=== PATIENT | male | born 1945 | race Caucasian/White ===

== ENCOUNTER 2020-07-07 13:08 | Inpatient (IN) | payer MEDICARE, SELFPAY ==
--- NOTE | ~2020-07-07 | XR_ITS ---
EXAMINATION: XR CHEST CLINICAL INFORMATION: Altered mental status. Question psych. COMPARISON: None TECHNIQUE: Frontal view of the chest was obtained. FINDINGS: No significant abnormality is noted involving the heart, lungs, mediastinum, bony thorax or soft tissues. XR/XR chest 1V IMPRESSION: Unremarkable chest examination.
--- NOTE | ~2020-07-07 | CT_ITS ---
EXAMINATION: CT HEAD WITHOUT CONTRAST CLINICAL INFORMATION: Failure to thrive. COMPARISON: Previous head CT scans most recent January 2019 TECHNIQUE: Contiguous axial imaging was performed from the skull base to vertex without intravenous administration of contrast. This CT examination was performed using dose optimization techniques as appropriate, variously including the following: *Automated exposure control *Adjustment of mA and/or kV according to patient size (this includes techniques or standardized protocols for targeted exams where dose is matched to indication/reason for exam; i.e. extremities or head) *Use of iterative reconstruction technique DLP: 836 mGy-cm FINDINGS: There is no evidence of acute intracranial hemorrhage or territorial infarction. No abnormal mass effect or midline shift is seen. Bush to white matter differentiation is well preserved. No extra-axial fluid collections are identified. The ventricles are normal in size. There is no abnormal attenuation within the brain parenchyma. The osseous structures and soft tissues are normal. The mastoid air cells and visualized portions of the paranasal sinuses are well aerated. CT/CT head/brain wo con IMPRESSION: Unremarkable exam.
--- NOTE | ~2020-07-07 | US_ITS ---
EXAMINATION: US RETROPERITONEAL COMPLETE (RENAL) CLINICAL INFORMATION: Urinary retention. COMPARISON: None TECHNIQUE: Real-time imaging of the kidneys and bladder. FINDINGS: RIGHT KIDNEY: 10.2 x 6.3 x 5.8 cm (SAG x AP x TRV). The kidney is normal in size, contour, and echogenicity. Renal cortical thickness is normal. No renal calculi or focal parenchymal lesions. Moderate hydronephrosis. Trace perinephric free fluid. LEFT KIDNEY: 11.4 x 6.1 x 5.9 cm (SAG x AP x TRV). The kidney is normal in size, contour, and echogenicity. Renal cortical thickness is normal. No renal calculi or focal parenchymal lesions. Moderate left hydronephrosis. BLADDER: The bladder wall demonstrates hypertrabeculation with multiple diverticula, which limits assessment for any subtle bladder wall abnormalities. Right ureteral jet is demonstrated; left is not. Prevoid bladder volume is 482 mL. The patient was unable to void for postvoid images. US/US retroperitoneal comp IMPRESSION: 1. Urinary retention. The prevoid bladder volume was 482 and the patient was unable to void for postvoid residuals. 2. The bladder wall is markedly trabeculated with scattered diverticula. 3. Moderate hydronephrosis bilaterally. Trace right perinephric free fluid.
[2020-07-07 13:28] VITALS: BP 138/72; BP 140/76; PULSE 66; PULSE 67; RESP 17; TEMP 36.7; O2SAT 95; O2SAT 96; BMI 29.6
--- NOTE | 2020-07-07 14:00 | ED.GENADULT ---
HPI - General Adult General Chief complaint: General Medical Stated complaint: CRISIS,SECT 12 Time Seen by Provider: 07/07/20 13:36 Source: patient and EMS Mode of arrival: EMS History of Present Illness HPI narrative: 75-year-old male with a past medical history of schizophrenia BIBA Section 12 by [facility], patient stating he is going to hell, reports visual and auditory hallucinations, SI and HI. Reported medication noncompliance, and failure to thrive. Per EMS house disheveled, patient unsteady on feet, decreased p.o. intake. Patient reports he is injuring himself, but then will not elaborate. History limited due to patient intermittently answering questions Related Data Allergies Allergy/AdvReac Type Severity Reaction Status Date / Time aspirin [Aspirin] Allergy Severe SWELLING Unverified 02/14/20 16:49 Review of Systems Review of Systems: Constitutional: No Fever, No Chills Gastrointestinal: + Nausea, + Vomiting, No Abdominal pain Musculoskeletal: No joint pain Skin: No Skin Lesions, No rash Psych: + SI/HI/AH/VH, + Social Issues History limited due to patient's acute illness Yes all other systems are reviewed and are negative [facility] Past Medical History Attestation statement: The following information was validated with the patient. Medical History (Updated 07/07/20 @ 17:07 by JENNI Vidal) Schizophrenia Social History Social History Alcohol intake: never Smoking Status: Never smoker Use of substances other than those prescribed or required for medical reasons: No Advance Directives: No Advance Directives Information Provided: No Physical Exam Vital Signs: Vital Signs: Last Vital Signs Temp 98.3 F 07/07/20 16:11 Pulse 67 07/07/20 16:11 Resp 13 07/07/20 16:11 BP 144/70 H 07/07/20 16:11 Pulse Ox 97 07/07/20 16:11 Body Mass Index 29.6 Const: Other: Disheveled Orientation/consciousness: oriented to person and oriented to place HENMT: Head: Yes normal to inspection Ears: hearing grossly normal bilaterally General nose exam: Normal external nose present Face and sinus: Yes normal facial exam Mouth: Normal oral and palatal mucosa present Eyes: General: appearance normal, both eyes and all related structures Pupils: Equal, round and reactive pupils present EOM: EOMs intact bilaterally Neck: Neck: Yes normal visual inspection and Yes no meningeal signs Resp: Effort & Inspection: normal respiratory effort Auscultation: clear to auscultation bilaterally, no rales, no rhonchi and no wheezes Cardio: Rate: regular rate Heart sounds: S1 normal heart sound present and S2 normal heart sound present GI: Inspection: Yes normal to inspection Palpation (GI): Soft to palpation, nontender, no guarding and not rigid Neuro: Other: Unsteady on feet. Intermittently following commands. A&O x2 General: oriented to person, oriented to place, tone normal, moves all extremities, no meningeal signs and CN's II-XI intact bilaterally Cranial nerves: Yes Equal, round and reactive pupils present Extrem: General: Yes normal to inspection Psych: Appearance: disheveled Speech and movement: Slowed speech present (Psych) and Slowed movement present (Neuro) Affect: Labile affect present and Blunted affect present Attitude: Guarded attititude/behavior present Thought content: Suicidality present and Homicidality present Course Course Course Narrative: -leukocytosis of 13.2, H&H stable, sodium 132, BUN 29 likely from dehydration > will give L IVF. Bilirubins mildly elevated. AST elevated, no priors to compare. Troponin negative -CXR unremarkable -1659-- UA infected will give dose of IV ceftriaxone > p.o. Ceftin ordered to initiate tomorrow -head CT unremarkable -copy of patient's Claudio order in chart for clozapine, risperidone, and olanzapine -1800-- ED care transferred to SMO[facility] INSPECTOR Lavinia pending N eval Medical Decision Making [facility] Narrative Medical decision making narrative: 75-year-old male with a past medical history of schizophrenia BIBA Section 12 by [facility], patient stating he is going to hell, reports visual and auditory hallucinations, SI and HI. Reported medication noncompliance, and failure to thrive. On exam VSS, disheveled, A&O x2, unsteady on feet, reports auditory/visual hallucinations, suicidality and homicidality. Concern for ICH vs metabolic/infectious etiology causing AMS vs schizophrenia/psychiatric issue vs substance abuse Plan: EKG, labs, UA, head CT, CXR, BHN, re-evaluate Lab Data Result diagrams: 07/07/20 14:49 07/07/20 14:49 Labs: Lab Results 07/07/20 07/07/20 07/07/20 Range/Units 14:49 14:49 14:49 WBC 13.2 H (4.8-10.8) X10*3/uL RBC 4.19 L (4.60-5.80) X10*6/uL Hgb 13.6 L (14.0-18.0) g/dl Hct 37.2 L (42-52) % MCV 88.8 (80-98) fL MCH 32.5 (27.0-33.0) pg MCHC 36.6 H (31.0-36.0) g/dl RDW 13.7 (11.0-16.0) % Plt Count 163 (160-400) X10*3/uL MPV 8.5 L (9.4-12.4) fL Immature Gran % (Auto) 0.5 H (0.0-0.4) % Neut % (Auto) 88.1 H (45-73) % Lymph % (Auto) 4.5 L (20-40) % [place] % (Auto) 6.7 (2-11) % Eos % (Auto) 0.0 (0-4) % Baso % (Auto) 0.2 (0-2) % Lymph # (Auto) 0.6 L (1.2-4.9) X10*3/uL [place] # (Auto) 0.9 (0.1-1.2) X10*3/uL Eos # (Auto) 0.0 (0.0-0.4) X10*3/uL Baso # (Auto) 0.0 (0.0-0.2) X10*3/uL Abs Immat Gran (auto) 0.07 H (0.00-0.03) X10*3/uL Absolute Neuts (auto) 11.6 H (2.0-8.3) X10*3/uL Absolute Nucleated RBC 0.000 (0.0-0.012) X10*3/uL Nucleated RBC % (auto) 0.0 (0.0-0.2) /100WBC Smear Tech's Comments VERIFIED Hold Blue Top Sodium 132 L (135-145) mmol/L Potassium 4.0 (3.3-5.1) mmol/L Chloride 97 (96-108) mmol/L Carbon Dioxide 26 (22-29) mmol/L Anion Gap 13 (12-20) BUN 29 H (9-16) mg/dL Creatinine 1.26 (0.5-1.4) mg/dL Estim Creat Clear Calc 53.0 Estimated GFR 55 Random Glucose 103 (60-115) mg/dL Calcium 8.5 (8.4-10.2) mg/dL Magnesium 2.7 H (1.6-2.6) mg/dL Total Bilirubin 1.1 H (0.0-1.0) mg/dL Direct Bilirubin 0.6 H (0.0-0.5) mg/dL AST 90 H (5-37) U/L ALT 39 (0-40) U/L Alkaline Phosphatase 85 (39-117) U/L Troponin I High Sens (<3.5-35.0) ng/L Total Protein 5.8 L (6.5-8.0) g/dL Albumin 4.1 (3.5-5.0) g/dL Lipase 39 (8-78) U/L Urine Color Urine Appearance Urine pH (5.0-8.0) Ur Specific [place] (1.005-1.025) Urine Protein (NEG-TRACE) MG/DL Urine Glucose (UA) (NEG) MG/DL Urine Ketones (NEG) MG/DL Urine Blood (NEG) Urine Nitrite (NEG) Ur Leukocyte Esterase (NEG) Urine RBC (0) /HPF Urine WBC (0-4) /HPF Ur Squamous Epith Cells /LPF Urine Bacteria /LPF Salicylates < 5.0 L (15-30) mg/dL Urine Opiates Screen (Not Detect) Acetaminophen < 1 (<30) mcg/mL Ur Barbiturates Screen (Not Detect) Ur Phencyclidine Scrn (Not Detect) Ur Amphetamines Screen (Not Detect) U Benzodiazepines Scrn (Not Detect) Urine Cocaine Screen (Not Detect) U Marijuana (THC) Screen (Not Detect) COVID-19 (SEAN) Negative (Negative) COVID-19 Clin Com See Note 07/07/20 07/07/20 07/07/20 Range/Units 14:49 14:49 15:38 WBC (4.8-10.8) X10*3/uL RBC (4.60-5.80) X10*6/uL Hgb (14.0-18.0) g/dl Hct (42-52) % MCV (80-98) fL MCH (27.0-33.0) pg MCHC (31.0-36.0) g/dl RDW (11.0-16.0) % Plt Count (160-400) X10*3/uL MPV (9.4-12.4) fL Immature Gran % (Auto) (0.0-0.4) % Neut % (Auto) (45-73) % Lymph % (Auto) (20-40) % [place] % (Auto) (2-11) % Eos % (Auto) (0-4) % Baso % (Auto) (0-2) % Lymph # (Auto) (1.2-4.9) X10*3/uL [place] # (Auto) (0.1-1.2) X10*3/uL Eos # (Auto) (0.0-0.4) X10*3/uL Baso # (Auto) (0.0-0.2) X10*3/uL Abs Immat Gran (auto) (0.00-0.03) X10*3/uL Absolute Neuts (auto) (2.0-8.3) X10*3/uL Absolute Nucleated RBC (0.0-0.012) X10*3/uL Nucleated RBC % (auto) (0.0-0.2) /100WBC Smear Tech's Comments Hold Blue Top SEE NOTE Sodium (135-145) mmol/L Potassium (3.3-5.1) mmol/L Chloride (96-108) mmol/L Carbon Dioxide (22-29) mmol/L Anion Gap (12-20) BUN (9-16) mg/dL Creatinine (0.5-1.4) mg/dL Estim Creat Clear Calc Estimated GFR Random Glucose (60-115) mg/dL Calcium (8.4-10.2) mg/dL Magnesium (1.6-2.6) mg/dL Total Bilirubin (0.0-1.0) mg/dL Direct Bilirubin (0.0-0.5) mg/dL AST (5-37) U/L ALT (0-40) U/L Alkaline Phosphatase (39-117) U/L Troponin I High Sens 4.3 (<3.5-35.0) ng/L Total Protein (6.5-8.0) g/dL Albumin (3.5-5.0) g/dL Lipase (8-78) U/L Urine Color YELLOW Urine Appearance HAZY Urine pH 6.5 (5.0-8.0) Ur Specific [place] 1.010 (1.005-1.025) Urine Protein NEG (NEG-TRACE) MG/DL Urine Glucose (UA) NEG (NEG) MG/DL Urine Ketones 15 (NEG) MG/DL Urine Blood 1+ H (NEG) Urine Nitrite NEG (NEG) Ur Leukocyte Esterase 2+ H (NEG) Urine RBC 1-4 (0) /HPF Urine WBC 50-75 H (0-4) /HPF Ur Squamous Epith Cells NONE /LPF Urine Bacteria TRACE /LPF Salicylates (15-30) mg/dL Urine Opiates Screen (Not Detect) Acetaminophen (<30) mcg/mL Ur Barbiturates Screen (Not Detect) Ur Phencyclidine Scrn (Not Detect) Ur Amphetamines Screen (Not Detect) U Benzodiazepines Scrn (Not Detect) Urine Cocaine Screen (Not Detect) U Marijuana (THC) Screen (Not Detect) COVID-19 (SEAN) (Negative) COVID-19 Clin Com 07/07/20 Range/Units 15:38 WBC (4.8-10.8) X10*3/uL RBC (4.60-5.80) X10*6/uL Hgb (14.0-18.0) g/dl Hct (42-52) % MCV (80-98) fL MCH (27.0-33.0) pg MCHC (31.0-36.0) g/dl RDW (11.0-16.0) % Plt Count (160-400) X10*3/uL MPV (9.4-12.4) fL Immature Gran % (Auto) (0.0-0.4) % Neut % (Auto) (45-73) % Lymph % (Auto) (20-40) % [place] % (Auto) (2-11) % Eos % (Auto) (0-4) % Baso % (Auto) (0-2) % Lymph # (Auto) (1.2-4.9) X10*3/uL [place] # (Auto) (0.1-1.2) X10*3/uL Eos # (Auto) (0.0-0.4) X10*3/uL Baso # (Auto) (0.0-0.2) X10*3/uL Abs Immat Gran (auto) (0.00-0.03) X10*3/uL Absolute Neuts (auto) (2.0-8.3) X10*3/uL Absolute Nucleated RBC (0.0-0.012) X10*3/uL Nucleated RBC % (auto) (0.0-0.2) /100WBC Smear Tech's Comments Hold Blue Top Sodium (135-145) mmol/L Potassium (3.3-5.1) mmol/L Chloride (96-108) mmol/L Carbon Dioxide (22-29) mmol/L Anion Gap (12-20) BUN (9-16) mg/dL Creatinine (0.5-1.4) mg/dL Estim Creat Clear Calc Estimated GFR Random Glucose (60-115) mg/dL Calcium (8.4-10.2) mg/dL Magnesium (1.6-2.6) mg/dL Total Bilirubin (0.0-1.0) mg/dL Direct Bilirubin (0.0-0.5) mg/dL AST (5-37) U/L ALT (0-40) U/L Alkaline Phosphatase (39-117) U/L Troponin I High Sens (<3.5-35.0) ng/L Total Protein (6.5-8.0) g/dL Albumin (3.5-5.0) g/dL Lipase (8-78) U/L Urine Color Urine Appearance Urine pH (5.0-8.0) Ur Specific [place] (1.005-1.025) Urine Protein (NEG-TRACE) MG/DL Urine Glucose (UA) (NEG) MG/DL Urine Ketones (NEG) MG/DL Urine Blood (NEG) Urine Nitrite (NEG) Ur Leukocyte Esterase (NEG) Urine RBC (0) /HPF Urine WBC (0-4) /HPF Ur Squamous Epith Cells /LPF Urine Bacteria /LPF Salicylates (15-30) mg/dL Urine Opiates Screen Not Detected (Not Detect) Acetaminophen (<30) mcg/mL Ur Barbiturates Screen Not Detected (Not Detect) Ur Phencyclidine Scrn Not Detected (Not Detect) Ur Amphetamines Screen Not Detected (Not Detect) U Benzodiazepines Scrn Not Detected (Not Detect) Urine Cocaine Screen Not Detected (Not Detect) U Marijuana (THC) Screen Not Detected (Not Detect) COVID-19 (SEAN) (Negative) COVID-19 Clin Com ECG Data Attestation: I personally reviewed and interpreted this ECG as follows: Prior ECG tracings: available for review Interpretation: EKG NSR rate of 68. Incomplete right bundle-branch block. Discharge Plan Discharge Clinical Impression: Acute UTI, Paranoid schizophrenia
--- NOTE | 2020-07-07 14:23 | ECG_ITS ---
Test Reason : SEIZURE Blood Pressure : / mmHG Vent. Rate : 068 BPM Atrial Rate : 068 BPM P-R Int : 170 ms QRS Dur : 096 ms QT Int : 416 ms P-R-T Axes : 059 -11 061 degrees QTc Int : 442 ms Normal sinus rhythm Incomplete right bundle branch block Abnormal ECG When compared with ECG of 05-FEB-2019 16:01, Vent. rate has decreased BY 34 BPM Questionable change in QRS axis Referred By: Nneka Galvan Electronically Signed By:ORLANDO XIE
[2020-07-07 15:00] LABS: Basophils Percent Auto 0.2 % (0-2); Hematocrit 37.2 % (42-52); Hemoglobin 13.6 g/dl (14.0-18.0); Imm Gran Abs Auto 0.07 X10*3/uL (0.00-0.03); Imm Gran Pct Auto 0.5 % (0.0-0.4); Lymphocytes Absolute Auto 0.6 X10*3/uL (1.2-4.9); Lymphocytes Percent Auto 4.5 % (20-40); MANUAL DIFF FLAG SCAN; Mean Corpuscular HGB Conc 36.6 g/dl (31.0-36.0); Mean Corpuscular Hemoglobin 32.5 pg (27.0-33.0); Mean Corpuscular Volume 88.8 fL (80-98); Mean Platelet Volume 8.5 fL (9.4-12.4); Monocytes Absolute Auto 0.9 X10*3/uL (0.1-1.2); Monocytes Percent Auto 6.7 % (2-11); Neutrophils Absolute Auto 11.6 X10*3/uL (2.0-8.3); Neutrophils Percent Auto 88.1 % (45-73); Platelet Count 163 X10*3/uL (160-400); Red Blood Count 4.19 X10*6/uL (4.60-5.80); Red Cell Distribution Width 13.7 % (11.0-16.0); SCAN SMEAR FLAG 1; White Blood Count 13.2 X10*3/uL (4.8-10.8)
[2020-07-07 15:14] LABS: COVID-19 Test Negative (Negative)
[2020-07-07 15:18] LABS: SLIDE REVIEW VERIFIED
[2020-07-07 15:25] LABS: Troponin-I High Sensitivity 4.3 ng/L (<3.5-35.0)
[2020-07-07 15:26] LABS: Acetaminophen LAB < 1 mcg/mL (<30); Alanine Aminotransferase 39 U/L (0-40); Albumin Level 4.1 g/dL (3.5-5.0); Alkaline Phosphatase 85 U/L (39-117); Anion Gap 13 (12-20); Aspartate Amino Transferase 90 U/L (5-37); Bilirubin Direct 0.6 mg/dL (0.0-0.5); Bilirubin Total 1.1 mg/dL (0.0-1.0); Blood Urea Nitrogen 29 mg/dL (9-16); Calcium 8.5 mg/dL (8.4-10.2); Carbon Dioxide 26 mmol/L (22-29); Chloride 97 mmol/L (96-108); Estimated Glomerular Filt Rate 55; Glucose Random 103 mg/dL (60-115); Lipase 39 U/L (8-78); Magnesium 2.7 mg/dL (1.6-2.6); Salicylate < 5.0 mg/dL (15-30); Sodium 132 mmol/L (135-145); Total Protein 5.8 g/dL (6.5-8.0)
[2020-07-07 16:03] LABS: Glucose Urine UA NEG (NEG); Leukocyte Esterase Urine 2+ (NEG); Nitrite Urine NEG (NEG); PH 6.5 (5.0-8.0); UACC Culture Trigger YES; Urine Blood 1+ (NEG); Urine Ketones 15 MG/DL (NEG); Urine Protein NEG (NEG-TRACE)
[2020-07-07 16:08] LABS: Appearance Urine HAZY; Color Urine YELLOW
[2020-07-07] MEDS: 0.9 % Sodium Chloride 1,000 ML 999 ML IVCONT (16:09)
--- NOTE | 2020-07-07 16:09 | PC.NURSE ---
Pt confused but answering some questions appropriately. He is calm and redirectable at this time
[2020-07-07 16:11] VITALS: BP 144/70; PULSE 67; RESP 13; TEMP 36.8; O2SAT 97
[2020-07-07 16:19] LABS: WBC Urine 50-75 /HPF (0-4)
[2020-07-07 16:20] LABS: Bacteria Urine TRACE /LPF
[2020-07-07 16:31] LABS: Amphetamine Screen Urine Not Detected (Not Detect); Barbiturates, Urine Not Detected (Not Detect); Benzodiazepines Screen Urine Not Detected (Not Detect); Cannabinoid Screen Urine Not Detected (Not Detect); Cocaine Screen Urine Not Detected (Not Detect); Opiate Screen Urine Not Detected (Not Detect); Phencyclidine Screen Urine Not Detected (Not Detect)
--- NOTE | 2020-07-07 17:02 | MHC.CARE ---
Patient's daughter, Magali Nicolas [phone] left message that her father is off medication and mentally ill, will likely referred for inpatient psychiatric treatment. She is the legal guardian and Power of Atty. Would like to know how he is doing and offer information.
[2020-07-07 18:30] VITALS: BP 154/73; PULSE 70; RESP 18; O2SAT 98
[2020-07-07] MEDS: cefTRIAXone sodium 1 GM in 0.9 % Sodium Chloride 50 ML IV (19:45)
[2020-07-07 20:00] VITALS: BP 160/81; PULSE 72; RESP 14; O2SAT 98
[2020-07-07 20:10] VITALS: BP 132/81; PULSE 85; RESP 15; O2SAT 98
--- NOTE | 2020-07-07 21:20 | PC.NURSE ---
Patient just got transferred from main ED, ambulatory with steady gait, seems confused and flat, delayed response, per patient he has been off his Clozaril medication for 5 days, psych consult was ordered for Clozaril dosing, provider made aware, N faxed, called, spoke with Maryan, confirmed receipt of referral, will continue to monitor.
[2020-07-08 02:58] VITALS: BP 153/76; PULSE 80; RESP 16; TEMP 36.4; O2SAT 98
[2020-07-08 09:19] VITALS: BP 148/78; PULSE 75; RESP 16; TEMP 37.1; O2SAT 95
--- NOTE | 2020-07-08 09:42 | MHC.HEMONC ---
Pt is alert, rr even,speaks in full sentences, skin is pwdi, and he is nad. Awaiting on psych consult.
--- NOTE | 2020-07-08 10:52 | PC.NURSE ---
Benito Mercado from [facility] called to report that it appears to him that the pt did not take his Clozaril since last or Tuesday.
--- NOTE | 2020-07-08 11:58 | PC.NURSE ---
Daughter, Magali Nicolas called from [place]. Her contact: [phone]
--- NOTE | 2020-07-08 11:59 | PC.NURSE ---
Pt seen by behavioral MANAGER ORDER. Order to resume pt's clozaril placed. Pharmacy to deliver.
[2020-07-08] MEDS: cloZAPine 25 MG TABLET 12.5 MG PO ×2 (12:08→21:03)
--- NOTE | 2020-07-08 15:16 | P.CNPS_ITS ---
History of Present Illness Date of Service: 07/08/2020 Chief Complaint: CRISIS,SECT 12 Reason for Consult: Clozapine dosing Requesting physician: Rowan Merino Discussed with referring provider: Yes Sources of Information: patient interviewed and chart reviewed Additional Sources of Information: Daughter HPI Narrative: Patient is a 75 year old male with longstanding history of schizophrenia, currently in area of ED pending psychiatric admission. Per chart review and discussion with patient's daughter who is also his POA, patient had not been acting like himself and reporting AH that a voice was telling him he was going to hell. Daughter lives in [place], but is very involved in patients care, notified his agency to check on him and he was found in his home wearing soiled clothing, repeating same things about going to hell. Once in ED it was noted that patient had a UTI and abx were started. SW noted that patient had not been taking Clozaril for several days. Consult requested to restart Clozaril Patient seen in room 1 of ED, patient initially laying down with eyes closed, but upon hearing this writers voice, immediately stood up, somewhat unaware of personal space as he was quite close to this casualty underwriter, even when this casualty underwriter backed up some. He appeared anxious, reporting that he stopped his Clozaril 5 days ago, asking to restart it. Denies any AH or VH, though unclear if this is accurate based on reports prior to admission and overall patient presentation. Collateral from daughter is that patient has been quite stable for about 10 years since he started to receive medication management services at home. She states that she is unsure how often he is being seen in his home now, but believes it has decreased since the start of the pandemic. He has an active Claudio order and daughter is also POA. Review of Systems Review of Systems patient reporting no complaints PMFSH Medical History (Updated 07/08/20 @ 15:51 by Enriqueta Mya CNP) Schizophrenia Diagnostics Vital Signs (24Hr): Vital Signs - 24 hr 07/07/20 16:11 07/07/20 18:30 07/07/20 20:00 Temperature 98.3 F Pulse Rate 67 70 72 Respiratory Rate 13 18 14 Blood Pressure 144/70 H 154/73 H 160/81 H Pulse Oximetry 97 98 98 07/07/20 20:10 07/08/20 02:58 07/08/20 09:19 Temperature 97.5 F 98.7 F Pulse Rate 85 80 75 Respiratory Rate 15 16 16 Blood Pressure 132/81 153/76 H 148/78 H Pulse Oximetry 98 98 95 Body Mass Index 29.6 Labs Results: 07/07/20 14:49 07/07/20 14:49 Labs: Laboratory Results - last 48 hr 07/07/20 07/07/20 07/07/20 14:49 14:49 14:49 WBC 13.2 H RBC 4.19 L Hgb 13.6 L Hct 37.2 L MCV 88.8 MCH 32.5 MCHC 36.6 H RDW 13.7 Plt Count 163 MPV 8.5 L Immature Gran % (Auto) 0.5 H Neut % (Auto) 88.1 H Lymph % (Auto) 4.5 L Jones % (Auto) 6.7 Eos % (Auto) 0.0 Baso % (Auto) 0.2 Lymph # (Auto) 0.6 L Jones # (Auto) 0.9 Eos # (Auto) 0.0 Baso # (Auto) 0.0 Abs Immat Gran (auto) 0.07 H Absolute Neuts (auto) 11.6 H Absolute Nucleated RBC 0.000 Nucleated RBC % (auto) 0.0 Smear Tech's Comments VERIFIED Hold Blue Top Sodium 132 L Potassium 4.0 Chloride 97 Carbon Dioxide 26 Anion Gap 13 BUN 29 H Creatinine 1.26 Estim Creat Clear Calc 53.0 Estimated GFR 55 Random Glucose 103 Calcium 8.5 Magnesium 2.7 H Total Bilirubin 1.1 H Direct Bilirubin 0.6 H AST 90 H ALT 39 Alkaline Phosphatase 85 Troponin I High Sens Total Protein 5.8 L Albumin 4.1 Lipase 39 Urine Color Urine Appearance Urine pH Ur Specific [place] Urine Protein Urine Glucose (UA) Urine Ketones Urine Blood Urine Nitrite Ur Leukocyte Esterase Urine RBC Urine WBC Ur Squamous Epith Cells Urine Bacteria Salicylates < 5.0 L Urine Opiates Screen Acetaminophen < 1 Ur Barbiturates Screen Ur Phencyclidine Scrn Ur Amphetamines Screen U Benzodiazepines Scrn Urine Cocaine Screen U Marijuana (THC) Screen COVID-19 (SEAN) Negative COVID-19 Clin Com See Note 07/07/20 07/07/20 07/07/20 14:49 14:49 15:38 WBC RBC Hgb Hct MCV MCH MCHC RDW Plt Count MPV Immature Gran % (Auto) Neut % (Auto) Lymph % (Auto) Jones % (Auto) Eos % (Auto) Baso % (Auto) Lymph # (Auto) Jones # (Auto) Eos # (Auto) Baso # (Auto) Abs Immat Gran (auto) Absolute Neuts (auto) Absolute Nucleated RBC Nucleated RBC % (auto) Smear Tech's Comments Hold Blue Top SEE NOTE Sodium Potassium Chloride Carbon Dioxide Anion Gap BUN Creatinine Estim Creat Clear Calc Estimated GFR Random Glucose Calcium Magnesium Total Bilirubin Direct Bilirubin AST ALT Alkaline Phosphatase Troponin I High Sens 4.3 Total Protein Albumin Lipase Urine Color YELLOW Urine Appearance HAZY Urine pH 6.5 Ur Specific [place] 1.010 Urine Protein NEG Urine Glucose (UA) NEG Urine Ketones 15 Urine Blood 1+ H Urine Nitrite NEG Ur Leukocyte Esterase 2+ H Urine RBC 1-4 Urine WBC 50-75 H Ur Squamous Epith Cells NONE Urine Bacteria TRACE Salicylates Urine Opiates Screen Acetaminophen Ur Barbiturates Screen Ur Phencyclidine Scrn Ur Amphetamines Screen U Benzodiazepines Scrn Urine Cocaine Screen U Marijuana (THC) Screen COVID-19 (SEAN) COVID-19 [employer] 07/07/20 15:38 WBC RBC Hgb Hct MCV MCH MCHC RDW Plt Count MPV Immature Gran % (Auto) Neut % (Auto) Lymph % (Auto) Jones % (Auto) Eos % (Auto) Baso % (Auto) Lymph # (Auto) Jones # (Auto) Eos # (Auto) Baso # (Auto) Abs Immat Gran (auto) Absolute Neuts (auto) Absolute Nucleated RBC Nucleated RBC % (auto) Smear Tech's Comments Hold Blue Top Sodium Potassium Chloride Carbon Dioxide Anion Gap BUN Creatinine Estim Creat Clear Calc Estimated GFR Random Glucose Calcium Magnesium Total Bilirubin Direct Bilirubin AST ALT Alkaline Phosphatase Troponin I High Sens Total Protein Albumin Lipase Urine Color Urine Appearance Urine pH Ur Specific [place] Urine Protein Urine Glucose (UA) Urine Ketones Urine Blood Urine Nitrite Ur Leukocyte Esterase Urine RBC Urine WBC Ur Squamous Epith Cells Urine Bacteria Salicylates Urine Opiates Screen Not Detected Acetaminophen Ur Barbiturates Screen Not Detected Ur Phencyclidine Scrn Not Detected Ur Amphetamines Screen Not Detected U Benzodiazepines Scrn Not Detected Urine Cocaine Screen Not Detected U Marijuana (THC) Screen Not Detected COVID-19 (SEAN) COVID-19 [employer] Com Imaging Radiology Impressions: ITS Impressions Chest X-Ray 07/07/20 13:48 IMPRESSION: Unremarkable chest examination. Head CT 07/07/20 13:48 IMPRESSION: Unremarkable exam. Mental Status Exam Mental Status Exam Patient Appearance: Well Grooomed Level of Consciousness: Awake, Alert and Follows Commands Patient Behavior: Guarded and Cooperative Mood Description: Anxious and Apprehensive Affect Description: Anxious and Apprehensive Ability to Follow Directions: Good Speech Pattern: Clear and Soft-Spoken Thought Content: positive for [place] Judgement: Fair Medications Medications Current Medications Generic Name Dose Route Start Last Admin Trade Name Freq PRN Reason Stop Dose Admin Cefuroxime Axetil 250 mg 07/08/20 17:15 Cefuroxime Axetil 250 Mg Tablet PO 07/15/20 17:14 Q12H CASSIDY Clozapine 12.5 mg 07/08/20 11:45 07/08/20 12:08 Clozapine 25 Mg Tablet PO 12.5 mg BID [facility] Administration Pharmacy Consult 1 each 07/07/20 17:02 Consult Rx Perform Med Rec MISCELLANE ONCE PRN Consult order Allergies Allergies Allergy/AdvReac Type Severity Reaction Status Date / Time aspirin [Aspirin] Allergy Severe SWELLING Verified 07/07/20 19:44 Assessment & Plan Assessment & Plan (1) Schizophrenia: Status: Acute Code(s): F20.9 - Schizophrenia, unspecified Recommendations: * Restart Clozapine 12.5mg BID X 2 days, then increase to 25mg BID * Based on history of rapid decompensation and substantial safety risk, psychiatric admission likely necessary until patient stabilizes Greater than 50% of the session was spent on counseling and/or coordination of care
[2020-07-08 17:06] VITALS: BP 159/90; PULSE 83; RESP 20; TEMP 37.1; O2SAT 98
--- NOTE | 2020-07-08 18:48 | P.EN_ITS ---
Event Note Date of Service: 07/08/20 Event Note: Messages received from Benito Calderon [phone] and Vladislav ash [facility] [phone] regarding pt. Chevy Solorzano MD suggested they contact designer/writer to provide information. 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 He stopped med on 07/03/20. Pt has a guardian, daughter who lives in [place] and is under Pavan's guardianship. Message given to ED team who is caring for pt.
--- NOTE | 2020-07-08 18:48 | PM.EVENT ---
Event Note Date of Service: 07/08/20 Event Note: Messages received from Benito Calderon [phone] and Vladislav ash [facility] [phone] regarding pt. Chevy Solorzano MD suggested they contact real estate underwriter to provide information. 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 He stopped med on 07/03/20. Pt has a guardian, daughter who lives in [place] and is under Pavan's guardianship. Message given to ED team who is caring for pt.
--- NOTE | 2020-07-08 21:14 | PC.NURSE ---
Patient continues to be confused, provide urine sample for repeat UA, compliant with HS PO medication, BHN reassessed the patient, disposition patient is on section 12 in-patient bed search, will continue to monitor.
[2020-07-08 21:25] LABS: Glucose Urine UA NEG (NEG); Nitrite Urine NEG (NEG); Urine Blood 2+ (NEG); Urine Ketones 15 MG/DL (NEG); Urine Protein TRACE MG/DL (NEG-TRACE)
[2020-07-08 21:26] LABS: Appearance Urine CLOUDY; Color Urine YELLOW
[2020-07-08 21:27] LABS: Leukocyte Esterase Urine 3+ (NEG); UACC Culture Trigger YES
[2020-07-08 21:29] LABS: Bacteria Urine 3+ /LPF; WBC Urine TNTC /HPF (0-4)
[2020-07-09 01:12] VITALS: BP 145/85; PULSE 87; RESP 18; TEMP 37.4; O2SAT 98
[2020-07-09 05:58] VITALS: BP 152/71; PULSE 76; RESP 18; TEMP 36; O2SAT 98
--- NOTE | 2020-07-09 06:51 | PC.NURSE ---
Patient slept better, compliant with AM medication, no distress observed/reported, will continue to monitor.
[2020-07-09 09:15] VITALS: BP 153/94; PULSE 98; TEMP 36.4; O2SAT 94
[2020-07-09] MEDS: cloZAPine 25 MG TABLET 12.5 MG PO ×2 (09:53→20:00)
--- NOTE | 2020-07-09 10:42 | PC.NURSE ---
has spent the morning in his room, took clozaril as ordered, urinated on himself , staff assisted him to getting cleaned up
--- NOTE | 2020-07-09 17:49 | PC.NURSE ---
Pt incontinent of stool, able to perform self-care after being prompted to the shower.
[2020-07-09 22:30] VITALS: BP 161/91; PULSE 86; RESP 20; TEMP 36.3; O2SAT 99
--- NOTE | 2020-07-10 04:51 | PC.NURSE ---
Patient in bed currently appears sleeping, up out of bed for bathroom use and back, compliant with his Ceftin morning dose, no distress observed/reported, respiration +/=/non-labored bilaterally, safety check maintained as ordered, will continue to monitor.
[2020-07-10 06:00] VITALS: BP 165/79; PULSE 64; RESP 16; TEMP 35.9; O2SAT 97
--- NOTE | 2020-07-10 06:54 | PC.NURSE ---
Report received. PT currently resting, calm and cooperative, denies complaints. PT is inpatient bedsearch.
[2020-07-10 08:58] VITALS: BP 147/75; PULSE 63; RESP 15; TEMP 37.1; O2SAT 96
[2020-07-10] MEDS: cloZAPine 25 MG TABLET 12.5 MG PO (09:50)
--- NOTE | 2020-07-10 14:15 | PC.NURSE ---
Per Enriqueta May, pt's clozaril should be increased to 25mg BID starting tonight and should have his CBC re-checked this weekend, provider notified.
--- NOTE | 2020-07-10 14:36 | PC.NURSE ---
PT incontinent of stool, pt assisted to shower, linen's changed. PT denies complaints.
--- NOTE | 2020-07-10 19:09 | PC.NURSE ---
Report received. PT is resting in bed. Calm and cooperative. PT is inpatient bed search.
[2020-07-10 20:32] VITALS: BP 154/75; PULSE 61; RESP 18; TEMP 36.3; O2SAT 98
[2020-07-10] MEDS: cloZAPine 25 MG TABLET PO (20:46)
--- NOTE | 2020-07-11 06:53 | PC.NURSE ---
Report received. PT currently sleeping, respirations even and unlabored, in no apparent distress. Pt is inpatient bedsearch.
[2020-07-11 06:55] VITALS: BP 149/78; PULSE 70; RESP 18; TEMP 36.2; O2SAT 97
[2020-07-11] MEDS: cloZAPine 25 MG TABLET PO ×2 (08:54→20:10)
[2020-07-11 09:56] VITALS: BP 153/70; PULSE 64; RESP 16; TEMP 35.9; O2SAT 97
[2020-07-11 12:28] LABS: MANUAL DIFF FLAG NO
[2020-07-11 12:29] LABS: Basophils Percent Auto 0.1 % (0-2); Eosinophils Percent Auto 0.1 % (0-4); Hematocrit 35.9 % (42-52); Hemoglobin 12.5 g/dl (14.0-18.0); Imm Gran Abs Auto 0.03 X10*3/uL (0.00-0.03); Imm Gran Pct Auto 0.4 % (0.0-0.4); Lymphocytes Absolute Auto 0.8 X10*3/uL (1.2-4.9); Lymphocytes Percent Auto 11.4 % (20-40); Mean Corpuscular HGB Conc 34.8 g/dl (31.0-36.0); Mean Corpuscular Hemoglobin 31.7 pg (27.0-33.0); Mean Corpuscular Volume 91.1 fL (80-98); Mean Platelet Volume 8.4 fL (9.4-12.4); Monocytes Absolute Auto 0.5 X10*3/uL (0.1-1.2); Monocytes Percent Auto 7.3 % (2-11); Neutrophils Absolute Auto 5.7 X10*3/uL (2.0-8.3); Neutrophils Percent Auto 80.7 % (45-73); Platelet Count 138 X10*3/uL (160-400); Red Blood Count 3.94 X10*6/uL (4.60-5.80); Red Cell Distribution Width 13.7 % (11.0-16.0); White Blood Count 7.1 X10*3/uL (4.8-10.8)
[2020-07-11 16:53] VITALS: BP 158/81; PULSE 63; RESP 16; TEMP 36.1; O2SAT 100
--- NOTE | 2020-07-11 17:42 | PC.NURSE ---
PT resting, pleasantly confused, calm and cooperative.
--- NOTE | 2020-07-11 21:21 | PC.NURSE ---
Patient in bed appears sleeping, no distress observed/reported, compliant with his HS PO medication, will continue to monitor.
[2020-07-11 22:17] VITALS: BP 149/74; PULSE 71; RESP 17; TEMP 36.4; O2SAT 97
[2020-07-11 23:00] VITALS: BP 137/70; PULSE 105; TEMP 36.4; O2SAT 94
[2020-07-12 02:46] VITALS: BP 173/86; PULSE 74; RESP 17; TEMP 36.3; O2SAT 100
--- NOTE | 2020-07-12 07:16 | PC.NURSE ---
Report received from STEFANY Gallego. Pt resting, resp unlabored.
[2020-07-12] MEDS: cloZAPine 25 MG TABLET PO (08:23)
--- NOTE | 2020-07-12 08:28 | PC.NURSE ---
Pt resting in room, affect even, pt cooperative w/ medications, pleasant. Pt orineted to place and season, but not year. Pt reports he is 'suffering' and when asked to elaborate, states he has been unable to sleep. reviewed plan to admit w/ pt. No concerns reported re: plan.
--- NOTE | 2020-07-12 09:47 | PC.NURSE ---
Pt seen by RYLAN. Pt resting in room, resp unlabored.
[2020-07-12 09:53] VITALS: BP 144/88; PULSE 58; TEMP 36.3; O2SAT 96
--- NOTE | 2020-07-12 12:13 | PC.NURSE ---
Per Magali, pt's daughter, daughter is pt's legal guardian. Pt's daughter asked to fax information to ED BH pod- states she will do that today.
--- NOTE | 2020-07-12 13:21 | PC.NURSE ---
sleeping. good chest rise. skin pwd
--- NOTE | 2020-07-12 13:53 | PC.NURSE ---
Pt resting, resp unlabored.
[2020-07-12 14:00] VITALS: RESP 18
[2020-07-12 16:57] VITALS: BP 155/71; PULSE 62; RESP 16; TEMP 35.9; O2SAT 97
--- NOTE | 2020-07-12 17:10 | PC.NURSE ---
Late enrty: report given to STEFANY Lozano. Pt aware that he will be transferred upstairs. No concerns reported.
--- NOTE | 2020-07-12 17:45 | PC.NURSE ---
Pt's legal guardian, Magali, called to notify that pt will be transferring to .
[2020-07-12 19:26] VITALS: BP 175/85; PULSE 76; TEMP 36.6; O2SAT 95
--- NOTE | 2020-07-12 20:05 | PC.ADMIT ---
updates to nursing assessment. pt has legal guardian, aram's order and paperwork and has a certificate of blindness in his paperwork. pt was referred to m5 after evaluation in the er. pt had stopped taking his medication and had also developed a uti. is being treated for uti and has re started clozaril since being in the emergency. daughter donna was notified of admission. feels he needs to in a skilled nursing or supervised living. she reports he has urinary incontinence at home, feels it's from the medication. currently lives in his own condo. pt reports + ah, ''bad voices'' able to re call being confused, reports continuing with urinary urgency. oriented to all except place and did well with re orientation.
[2020-07-12] MEDS: cloZAPine 25 MG TABLET 37.5 MG PO (20:22)
[2020-07-12] MEDS: cloZAPine 100 MG TABLET 300 MG PO (20:23)
--- NOTE | 2020-07-12 23:22 | PC.NURSE ---
patient found on floor during checks. lying on the floor without clothing and soiled clothing was on the floor in a pile next to him. appearing tired and required several staff to assist to feet and to clean him. once in bed patient immediately fell asleep. placed on 1:1 status 97.5, 137/70, 105.
[2020-07-13 06:30] VITALS: BP 175/85; PULSE 78; RESP 16; TEMP 36.5; O2SAT 98
[2020-07-13 08:38] LABS: Basophils Percent Auto 0.4 % (0-2); Hematocrit 34.5 % (42-52); Hemoglobin 11.9 g/dl (14.0-18.0); Imm Gran Abs Auto 0.02 X10*3/uL (0.00-0.03); Imm Gran Pct Auto 0.4 % (0.0-0.4); Lymphocytes Absolute Auto 0.7 X10*3/uL (1.2-4.9); Lymphocytes Percent Auto 12.6 % (20-40); MANUAL DIFF FLAG SCAN; Mean Corpuscular HGB Conc 34.5 g/dl (31.0-36.0); Mean Corpuscular Hemoglobin 31.4 pg (27.0-33.0); Monocytes Absolute Auto 0.4 X10*3/uL (0.1-1.2); Monocytes Percent Auto 8.1 % (2-11); Neutrophils Absolute Auto 4.2 X10*3/uL (2.0-8.3); Neutrophils Percent Auto 78.5 % (45-73); Platelet Count 141 X10*3/uL (160-400); Red Blood Count 3.79 X10*6/uL (4.60-5.80); Red Cell Distribution Width 13.4 % (11.0-16.0); SCAN SMEAR FLAG 1; White Blood Count 5.3 X10*3/uL (4.8-10.8)
[2020-07-13 09:16] LABS: SLIDE REVIEW VERIFIED
[2020-07-13] MEDS: cloZAPine 25 MG TABLET 37.5 MG PO ×2 (09:28→20:40)
[2020-07-13 18:00] VITALS: BP 184/87; PULSE 72; TEMP 36.3
[2020-07-13 20:49] VITALS: BP 145/76; PULSE 78
[2020-07-13] MEDS: Magnesium Hydrox/Alum Hydrox 30 ML ORAL.SUSP PO (22:11)
--- NOTE | 2020-07-13 23:49 | PC.NURSE ---
Patient had small amount of emesis at 2200. Denied any other issues. He was given 30 ml. of antacid at 2210. Patient was resting quietly at 2300, no further emesis.
[2020-07-14 00:35] VITALS: BP 158/81; PULSE 73; RESP 18; TEMP 36.8; O2SAT 98
[2020-07-14 06:40] VITALS: BP 154/82; PULSE 79; RESP 18; TEMP 37.1; O2SAT 97
[2020-07-14] MEDS: cloZAPine 25 MG TABLET 37.5 MG PO ×2 (09:07→20:37)
[2020-07-14 11:27] VITALS: BP 159/87; PULSE 72; RESP 16; TEMP 37.1; O2SAT 95
[2020-07-14 17:00] VITALS: BP 135/86; PULSE 89; TEMP 37.2
[2020-07-15 06:25] VITALS: BP 148/82; PULSE 63; RESP 16; TEMP 36.8; O2SAT 96
--- NOTE | 2020-07-15 08:17 | HO.PSYADMNOT ---
HPI Chief Complaint: acute psychosis Sources of Information: patient interviewed and chart reviewed HPI Narrative: Pt seen on 07/13/20 Patient is a 75 year old male, legally blind, with longstanding history of schizophrenia. Pt went off Clozaril a week or so before admission. He tells selling underwriter he is not sure why, saying perhaps he forgot to take it. Prior to this week, pt says he's dong real well...for years. Since coming off Clozaril, he says he's been tortured by command AH that tells him to kill himself. He is mostly aware that these AH's are from his illness and his mind playing trick on him, but sometimes he's forgets this wonders if they're real. He says it depends. Pt denies any SI. Patient informs selling underwriter that he's concerned he won't be able to survive on his own at home. In ED, patient restarted on Clozaril by Dr. Del Castillo Taken from psych consult note: Per chart review and discussion with patient's daughter who is also his POA, patient had not been acting like himself and reporting AH that a voice was telling him he was going to hell. Daughter lives in [place], but is very involved in patients care, notified his agency to check on him and he was found in his home wearing soiled clothing, repeating same things about going to hell. Once in ED it was noted that patient had a UTI and abx were started. SW noted that patient had not been taking Clozaril for several days. Consult requested to restart Clozaril Patient seen in room 1 of ED, patient initially laying down with eyes closed, but upon hearing this writers voice, immediately stood up, somewhat unaware of personal space as he was quite close to this selling underwriter, even when this selling underwriter backed up some. He appeared anxious, reporting that he stopped his Clozaril 5 days ago, asking to restart it. Denies any AH or VH, though unclear if this is accurate based on reports prior to admission and overall patient presentation. Collateral from daughter is that patient has been quite stable for about 10 years since he started to receive medication management services at home. She states that she is unsure how often he is being seen in his home now, but believes it has decreased since the start of the pandemic. He has an active Claudio order and daughter is also POA. IMPRESSION: 75 yo male with hx of psychotic illness, stable on Cloazril. Recent decompensation due to stopping Clozaril, unclear why; perhaps some confusion/delirium due to UTI. Pt currently w/ CAH and being restarted on Clozaril. UTI on admission and being treated with ABX. Pt presents as eager for treatment. No SI. On admission, pt's Clozaril erroneously increased to 300mg at bedtime. Pt received one dose; dosing has been corrected. immigration associate informed patient who denies any adverse events/side-effects. DX: Schizophrenia, unspecified plan: admit for safety, med management continue titration of Clozaril Past Psychiatric History: schizophrenia; stable for 10 years Medical Evaluation Reviewed: Yes [facility] Medical History (Updated 07/12/20 @ 21:35 by Sofia Nice RN) Blindness Schizophrenia Family History: deferred Social History: deferred Substance History: deferred Trauma History: deferred Diagnostics Vital Signs (24Hr): Vital Signs - 24 hr 07/14/20 11:27 07/14/20 17:00 07/15/20 06:25 Temperature 98.8 F 98.9 F 98.3 F Pulse Rate 72 89 63 Respiratory Rate 16 16 Blood Pressure 159/87 H 135/86 148/82 H Pulse Oximetry 95 96 Body Mass Index 29.6 Labs Results: 07/13/20 08:12 07/07/20 14:49 Labs: Laboratory Results - last 48 hr 07/13/20 08:12 WBC 5.3 RBC 3.79 L Hgb 11.9 L Hct 34.5 L MCV 91.0 MCH 31.4 MCHC 34.5 RDW 13.4 Plt Count 141 L MPV 9.0 L Immature Gran % (Auto) 0.4 Neut % (Auto) 78.5 H Lymph % (Auto) 12.6 L [place] % (Auto) 8.1 Eos % (Auto) 0.0 Baso % (Auto) 0.4 Lymph # (Auto) 0.7 L [place] # (Auto) 0.4 Eos # (Auto) 0.0 Baso # (Auto) 0.0 Abs Immat Gran (auto) 0.02 Absolute Neuts (auto) 4.2 Absolute Nucleated RBC 0.000 Nucleated RBC % (auto) 0.0 Smear Tech's Comments VERIFIED Imaging Radiology Impressions: ITS Impressions Chest X-Ray 07/07/20 13:48 IMPRESSION: Unremarkable chest examination. Head CT 07/07/20 13:48 IMPRESSION: Unremarkable exam. Meds/Allergies Meds Home Medications Acetaminophen (Acetaminophen 325 Mg Tablet) 650 mg PO Q6H PRN PRN Reason: Headache/Pain Mild Scale (1-3) Al Hydroxide/Mg Hydroxide (Magnesium Hydrox/Alum Hydrox 30 Ml Oral.Susp) 30 ml PO Q6H PRN PRN Reason: Heartburn/Nausea Last Admin: 07/13/20 22:11 Dose: 30 ml Documented by: Cefuroxime Axetil (Cefuroxime Axetil 250 Mg Tablet) 250 mg PO Q12H CASSIDY Last Admin: 07/14/20 20:37 Dose: 250 mg Documented by: Clozapine (Clozapine 25 Mg Tablet) 37.5 mg PO BID [facility] Last Admin: 07/14/20 20:37 Dose: 37.5 mg Documented by: Magnesium Hydroxide (Milk Of Magnesia 30 Ml Oral.Susp) 30 ml PO DAILY PRN PRN Reason: Constipation Pharmacy Consult (Consult Rx Perform Med Rec) 1 each MISCELLANE ONCE PRN PRN Reason: Consult order Allergies Allergies Allergy/AdvReac Type Severity Reaction Status Date / Time aspirin [Aspirin] Allergy Severe SWELLING Verified 07/07/20 19:44 Mental Status Exam Mental Status Exam Patient Appearance: Appropriate Patient Orientation: Person, Place and Situation Level of Consciousness: Awake, Appropriate and Alert Patient Behavior: Appropriate and Cooperative Mood Description: Anxious Affect Description: Appropriate and Anxious Ability to Follow Directions: Good Speech Pattern: Clear and Appropriate Hallucinations: Auditory Delusions: Not Present Thought Process: Goal Oriented Thought Content: positive for Intact Judgement: Poor Assessment & Plan Patient educated on: diagnosis and medication risk/benefits Informed Consent: understands Reason for continued inpatient stay Substantial Risk for: med/psych decompensation
[2020-07-15 08:30] VITALS: BP 128/61; PULSE 69; RESP 18; TEMP 36.8; O2SAT 96
[2020-07-15] MEDS: cloZAPine 25 MG TABLET 37.5 MG PO (08:44)
--- NOTE | 2020-07-15 09:42 | HO.PSYCHPN ---
Subjective Subjective Date of Service: 07/14/20 Reason For Visit: acute psychosis Interim History: pt says he still has AH and reports intensity varies; denies any medication side-effects pt did vomit last night, per nursing staff, which resolved on it's own; pt says feels better today, denies nausea. Pt says poor sleep, which is related to N/V no incontinence pt says he does not need anything from internal communications writer but will inform nursing if this changes Medication Compliance: Yes Side effects from medications: No Attending Groups: No Mental Status Exam Mental Status Exam Narrative: Patient Appearance: Appropriate Patient Orientation: Person, Place and Situation Level of Consciousness: Awake, Appropriate and Alert Patient Behavior: Appropriate and Cooperative Mood Description: Anxious Affect Description: Appropriate and Anxious Ability to Follow Directions: Good Speech Pattern: Clear and Appropriate Hallucinations: Auditory Delusions: Not Present Thought Process: Goal Oriented Thought Content: positive for Intact Judgement: Poor Diagnostics Vital Signs (24Hr): Vital Signs - 24 hr 07/14/20 11:27 07/14/20 17:00 07/15/20 06:25 Temperature 98.8 F 98.9 F 98.3 F Pulse Rate 72 89 63 Respiratory Rate 16 16 Blood Pressure 159/87 H 135/86 148/82 H Pulse Oximetry 95 96 Body Mass Index 29.6 Labs Results: 07/13/20 08:12 07/07/20 14:49 Imaging Radiology Impressions: ITS Impressions Chest X-Ray 07/07/20 13:48 IMPRESSION: Unremarkable chest examination. Head CT 07/07/20 13:48 IMPRESSION: Unremarkable exam. Medications Medications Current Medications Generic Name Dose Route Start Last Admin Trade Name Freq PRN Reason Stop Dose Admin Acetaminophen 650 mg 07/12/20 19:08 Acetaminophen 325 Mg Tablet PO Q6H PRN Headache/Pain Mild Scale (1-3) Al Hydroxide/Mg Hydroxide 30 ml 07/12/20 19:08 07/13/20 22:11 Magnesium Hydrox/Alum Hydrox 30 Ml Oral.Susp PO 30 ml Q6H PRN Administration Heartburn/Nausea Cefuroxime Axetil 250 mg 07/13/20 08:00 07/15/20 08:44 Cefuroxime Axetil 250 Mg Tablet PO 250 mg Q12H CASSIDY Administration Clozapine 37.5 mg 07/13/20 21:00 07/15/20 08:44 Clozapine 25 Mg Tablet PO 37.5 mg BID CASSIDY Administration Magnesium Hydroxide 30 ml 07/12/20 19:08 Milk Of Magnesia 30 Ml Oral.Susp PO DAILY PRN Constipation Pharmacy Consult 1 each 07/07/20 17:02 Consult Rx Perform Med Rec MISCELLANE ONCE PRN Consult order Allergies Allergies Allergy/AdvReac Type Severity Reaction Status Date / Time aspirin [Aspirin] Allergy Severe SWELLING Verified 07/07/20 19:44 Assessment & Plan impression: hx of psychosis; decomp following being off meds; pt being titratred back on to clozaril and stabilizing. No SI; intermittent CAH dx: schizophrenia CBC with diff ordered to monitor clozaril will defer titration to primary team' Greater than 50% of the session was spent on counseling and/or coordination of care Reason for contiued inpatient stay Substantial Risk for: med/psych decompensation
--- NOTE | 2020-07-15 11:19 | P.PNPSI_ITS ---
Subjective Subjective Date of Service: 07/15/20 Reason For Visit: acute psychosis Interim History: Pt reports he forgot to take clozaril which he states is not like himself. He reports that he was confused and did not know what was going on. He reports hearing voices even when taking clozaril consistently. He reports hearing diffierent voices that can be derogatory, but he denies CAH. He reports voices got worse after he stopped medication. He is oriented to year, month, date, day, place, some confusion about situation in that he is not sure why he was admitted to psychiatric unit. He denies SI/HI. 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 He lives in his own condo but has services through [facility]. His gait much more steady. Review of Systems Review of Systems patient reporting no complaints Yes all other systems are reviewed and are negative Mental Status Exam Mental Status Exam Narrative: Patient Appearance:wearing hospital gown, fair hygiene, in NAD Patient Orientation: alert, oriented to date/place/month/year Patient Behavior: Appropriate and Cooperative Mood Description: Anxious Affect Description: Appropriate and Anxious Speech Pattern: Clear, some slight delayed response rate, otherwise regular rhythm, soft volume, spontaneous Hallucinations: Auditory, no CAH Delusions: Not Present Thought Process: linear Thought Content: AH, otherwise future oriented Judgement/insight: Poor x 2 SI: denies HI: denies No signs of aggression towards self or others Mood Description: Anxious Diagnostics Vital Signs (24Hr): Vital Signs - 24 hr 07/14/20 11:27 07/14/20 17:00 07/15/20 06:25 Temperature 98.8 F 98.9 F 98.3 F Pulse Rate 72 89 63 Respiratory Rate 16 16 Blood Pressure 159/87 H 135/86 148/82 H Pulse Oximetry 95 96 Body Mass Index 29.6 Labs Results: 07/13/20 08:12 07/07/20 14:49 Imaging Radiology Impressions: ITS Impressions Chest X-Ray 07/07/20 13:48 IMPRESSION: Unremarkable chest examination. Head CT 07/07/20 13:48 IMPRESSION: Unremarkable exam. Medications Medications Current Medications Generic Name Dose Route Start Last Admin Trade Name Freq PRN Reason Stop Dose Admin Acetaminophen 650 mg 07/12/20 19:08 Acetaminophen 325 Mg Tablet PO Q6H PRN Headache/Pain Mild Scale (1-3) Al Hydroxide/Mg Hydroxide 30 ml 07/12/20 19:08 07/13/20 22:11 Magnesium Hydrox/Alum Hydrox 30 Ml Oral.Susp PO 30 ml Q6H PRN Administration Heartburn/Nausea Cefuroxime Axetil 250 mg 07/13/20 08:00 07/15/20 08:44 Cefuroxime Axetil 250 Mg Tablet PO 250 mg Q12H CASSIDY Administration Clozapine 37.5 mg 07/13/20 21:00 07/15/20 08:44 Clozapine 25 Mg Tablet PO 37.5 mg BID CASSIDY Administration Magnesium Hydroxide 30 ml 07/12/20 19:08 Milk Of Magnesia 30 Ml Oral.Susp PO DAILY PRN Constipation Pharmacy Consult 1 each 07/07/20 17:02 Consult Rx Perform Med Rec MISCELLANE ONCE PRN Consult order Allergies Allergies Allergy/AdvReac Type Severity Reaction Status Date / Time aspirin [Aspirin] Allergy Severe SWELLING Verified 07/07/20 19:44 Assessment & Plan Assessment & Plan (1) Schizophrenia: Status: Acute Code(s): F20.9 - Schizophrenia, unspecified Assessment and Plan: 1. Increase clozaril to 50mg po BID. 2. Weekly CBC with diff 3. Obtain collateral information 4. Aftercare planning (2) UTI (urinary tract infection): Status: Acute Code(s): N39.0 - Urinary tract infection, site not specified Assessment and Plan: 1. continue cefuroxime Greater than 50% of the session was spent on counseling and/or coordination of care Reason for contiued inpatient stay Substantial Risk for: inability to function
[2020-07-15 18:00] VITALS: BP 146/68; PULSE 80; TEMP 36.8
[2020-07-15] MEDS: cloZAPine 25 MG TABLET 50 MG PO (21:11)
[2020-07-16 06:05] VITALS: BP 163/75; PULSE 66; RESP 18; TEMP 36.9; O2SAT 95
[2020-07-16 08:34] LABS: Cholesterol 147 mg/dL; HDL Cholesterol 40 mg/dL; LDL Cholesterol Calculated 86 mg/dl; Triglycerides 105 mg/dL
[2020-07-16 08:37] LABS: Estimated Average Glucose 94 mg/dL; Hemoglobin A1c % 4.9 %
[2020-07-16 08:57] LABS: TSH reflex Free T4 3.45 uIU/mL (0.32-4.0)
[2020-07-16] MEDS: cloZAPine 25 MG TABLET 50 MG PO ×2 (09:25→20:23)
[2020-07-16 09:49] LABS: Folate 7.9 ng/mL (> or = 4.0); Vitamin B12 347 pg/mL (200-900)
[2020-07-16 10:40] LABS: Alanine Aminotransferase 25 U/L (0-40); Albumin Level 3.6 g/dL (3.5-5.0); Alkaline Phosphatase 68 U/L (39-117); Anion Gap 12 (12-20); Aspartate Amino Transferase 15 U/L (5-37); Bilirubin Total 0.6 mg/dL (0.0-1.0); Blood Urea Nitrogen 41 mg/dL (9-16); Calcium 8.3 mg/dL (8.4-10.2); Carbon Dioxide 27 mmol/L (22-29); Chloride 108 mmol/L (96-108); Creatinine Clr Calc Pharmacy 32.9; Estimated Glomerular Filt Rate 32; Glucose Fasting 144 mg/dL (60-99); Potassium 4.4 mmol/L (3.3-5.1); Sodium 143 mmol/L (135-145); Total Protein 5.6 g/dL (6.5-8.0)
--- NOTE | 2020-07-16 15:24 | PC.NURSE ---
MD ORDERED POST RESIDUAL VOID ORDERED, BLADDER SCAN WAS [id number] MLS RECORDED. MD NOTIFIED WILL CONTINUE TO MONITOR. PT DENIED ANY DISCOMFORT.
--- NOTE | 2020-07-16 16:03 | HO.PSYCHPN ---
Subjective Subjective Date of Service: 07/16/20 Reason For Visit: acute psychosis Interim History: Pt reports hearing voices, telling him all the danger he will face in the future. He denies that voices are telling him to hurt himself but states that voices are very overwhelming and distressing at times. He denies SI/HI. He reports sleeping and eating fairly well. Labs showed increase in Creatinine and GFR- ? if pt retaining urine, ordered bladder scan to obtain Post void residual. Review of Systems Review of Systems patient reporting no complaints Yes all other systems are reviewed and are negative Mental Status Exam Mental Status Exam Narrative: Patient Appearance:wearing hospital gown, fair hygiene, in NAD Patient Orientation: alert, oriented to date/place/month/year Patient Behavior: Appropriate and Cooperative Mood Description: Anxious Affect Description: Appropriate and Anxious Speech Pattern: Clear, some slight delayed response rate, otherwise regular rhythm, soft volume, spontaneous Hallucinations: Auditory, no CAH Delusions: Not Present Thought Process: linear Thought Content: AH, otherwise future oriented Judgement/insight: Poor x 2 SI: denies HI: denies No signs of aggression towards self or others Patient Appearance: Appropriate Patient Orientation: Person, Place and Situation Level of Consciousness: Awake, Appropriate and Alert Patient Behavior: Appropriate and Cooperative Mood Description: Anxious Affect Description: Appropriate and Anxious Ability to Follow Directions: Good Speech Pattern: Clear and Appropriate Diagnostics Vital Signs (24Hr): Vital Signs - 24 hr 07/15/20 18:00 07/16/20 06:05 Temperature 98.3 F 98.5 F Pulse Rate 80 66 Respiratory Rate 18 Blood Pressure 146/68 H 163/75 H Pulse Oximetry 95 Body Mass Index 29.6 Labs Results: 07/13/20 08:12 07/16/20 09:55 Labs: Laboratory Results - last 48 hr 07/16/20 07/16/20 07/16/20 07:43 07:46 07:46 Sodium Potassium Chloride Carbon Dioxide Anion Gap BUN Creatinine Estim Creat Clear Calc Estimated GFR Fasting Glucose Estimat Average Glucose 94 Hemoglobin A1c % 4.9 Calcium Total Bilirubin AST ALT Alkaline Phosphatase Total Protein Albumin Triglycerides 105 Cholesterol 147 LDL Cholesterol, Calc 86 HDL Cholesterol 40 Vitamin B12 347 Folate 7.9 TSH 3.45 07/16/20 09:55 Sodium 143 Potassium 4.4 Chloride 108 Carbon Dioxide 27 Anion Gap 12 BUN 41 H Creatinine 2.03 H Estim Creat Clear Calc 32.9 Estimated GFR 32 Fasting Glucose 144 H Estimat Average Glucose Hemoglobin A1c % Calcium 8.3 L Total Bilirubin 0.6 AST 15 D ALT 25 Alkaline Phosphatase 68 Total Protein 5.6 L Albumin 3.6 Triglycerides Cholesterol LDL Cholesterol, Calc HDL Cholesterol Vitamin B12 Folate TSH Imaging Radiology Impressions: ITS Impressions Chest X-Ray 07/07/20 13:48 IMPRESSION: Unremarkable chest examination. Head CT 07/07/20 13:48 IMPRESSION: Unremarkable exam. Medications Medications Current Medications Generic Name Dose Route Start Last Admin Trade Name Freq PRN Reason Stop Dose Admin Acetaminophen 650 mg 07/12/20 19:08 Acetaminophen 325 Mg Tablet PO Q6H PRN Headache/Pain Mild Scale (1-3) Al Hydroxide/Mg Hydroxide 30 ml 07/12/20 19:08 07/13/20 22:11 Magnesium Hydrox/Alum Hydrox 30 Ml Oral.Susp PO 30 ml Q6H PRN Administration Heartburn/Nausea Cefuroxime Axetil 250 mg 07/13/20 08:00 07/16/20 09:25 Cefuroxime Axetil 250 Mg Tablet PO 250 mg Q12H CASSIDY Administration Clozapine 50 mg 07/15/20 21:00 07/16/20 09:25 Clozapine 25 Mg Tablet PO 50 mg BID CASSIDY Administration Magnesium Hydroxide 30 ml 07/12/20 19:08 Milk Of Magnesia 30 Ml Oral.Susp PO DAILY PRN Constipation Multi-Ingred Cream/Lotion/Oil/Oint 1 appl 07/15/20 21:00 07/16/20 10:25 Mineral Oil/Petrolatum,White 106 Gm Tube TOPICAL Not Given BID [facility] Pharmacy Consult 1 each 07/07/20 17:02 Consult Rx Perform Med Rec MISCELLANE ONCE PRN Consult order Allergies Allergies Allergy/AdvReac Type Severity Reaction Status Date / Time aspirin [Aspirin] Allergy Severe SWELLING Verified 07/07/20 19:44 Assessment & Plan Assessment & Plan (1) Schizophrenia: Status: Acute Code(s): F20.9 - Schizophrenia, unspecified Assessment and Plan: 1. Continue clozaril to 50mg po BID. 2. Weekly CBC with diff 3. Obtain collateral information 4. Aftercare planning (2) UTI (urinary tract infection): Status: Acute Code(s): N39.0 - Urinary tract infection, site not specified Assessment and Plan: 1. continue cefuroxime 2. post void residual- r/o urine retention Greater than 50% of the session was spent on counseling and/or coordination of care Reason for contiued inpatient stay Substantial Risk for: inability to function
[2020-07-16] MEDS: polyethylene glycoL 3350 17 GM POWD.PACK PO (18:30)
[2020-07-16] MEDS: Mineral Oil/Petrolatum,White 106 GM Tube 1 APPL TOPICAL (20:27)
[2020-07-16 21:16] VITALS: BP 171/86; PULSE 69; TEMP 36.7
[2020-07-17 06:25] VITALS: BP 159/79; PULSE 66; RESP 16; TEMP 37.1; O2SAT 96
[2020-07-17 08:09] LABS: MANUAL DIFF FLAG NO
[2020-07-17 08:13] LABS: Basophils Percent Auto 0.3 % (0-2); Hematocrit 34.1 % (42-52); Hemoglobin 11.8 g/dl (14.0-18.0); Imm Gran Abs Auto 0.03 X10*3/uL (0.00-0.03); Imm Gran Pct Auto 0.4 % (0.0-0.4); Lymphocytes Absolute Auto 1.1 X10*3/uL (1.2-4.9); Lymphocytes Percent Auto 14.6 % (20-40); Mean Corpuscular HGB Conc 34.6 g/dl (31.0-36.0); Mean Corpuscular Hemoglobin 31.6 pg (27.0-33.0); Mean Corpuscular Volume 91.2 fL (80-98); Mean Platelet Volume 8.8 fL (9.4-12.4); Monocytes Absolute Auto 0.5 X10*3/uL (0.1-1.2); Monocytes Percent Auto 7.3 % (2-11); Neutrophils Absolute Auto 5.6 X10*3/uL (2.0-8.3); Neutrophils Percent Auto 77.4 % (45-73); Platelet Count 166 X10*3/uL (160-400); Red Blood Count 3.74 X10*6/uL (4.60-5.80); Red Cell Distribution Width 13.3 % (11.0-16.0); White Blood Count 7.3 X10*3/uL (4.8-10.8)
[2020-07-17] MEDS: Mineral Oil/Petrolatum,White 106 GM Tube 1 APPL TOPICAL ×2 (08:54→20:25)
[2020-07-17] MEDS: cloZAPine 25 MG TABLET 50 MG PO ×2 (08:54→20:14)
[2020-07-17] MEDS: polyethylene glycoL 3350 17 GM POWD.PACK PO (08:57)
[2020-07-17 08:59] LABS: Alanine Aminotransferase 30 U/L (0-40); Albumin Level 3.6 g/dL (3.5-5.0); Alkaline Phosphatase 68 U/L (39-117); Anion Gap 12 (12-20); Aspartate Amino Transferase 17 U/L (5-37); Bilirubin Total 0.6 mg/dL (0.0-1.0); Blood Urea Nitrogen 39 mg/dL (9-16); Carbon Dioxide 27 mmol/L (22-29); Chloride 109 mmol/L (96-108); Creatinine Clr Calc Pharmacy 32.6; Estimated Glomerular Filt Rate 32; Glucose Fasting 104 mg/dL (60-99); Potassium 4.9 mmol/L (3.3-5.1); Sodium 143 mmol/L (135-145); Total Protein 5.5 g/dL (6.5-8.0)
[2020-07-17] MEDS: Acetaminophen 325 MG TABLET 650 MG PO (12:13)
--- NOTE | 2020-07-17 17:13 | HO.PSYCHPN ---
Subjective Subjective Date of Service: 07/18/20 Reason For Visit: acute psychosis Subjective Notes: Conditional Voluntary Interim History: Pt continues to report AH that are distressing. He denies CAH but reports voices are derogatory and scary. Titration of clozaril is on hold given his urinary retention and worsening kidney function. Pt seen by urologist, was started on indwelling catheter. Will continue to monitor labs- including electrolytes and renal function. Pt denies SI/HI. He is taking medications as prescribed. He agreed to sign CV. Medication Compliance: Yes Side effects from medications: Yes (possible anticholinergic s/e, worsening urinary retention w/ clozaril) Attending Groups: No Review of Systems Cardiovascular: Denies chest pain and Denies dyspnea Respiratory: Denies chest congestion and Denies dyspnea Genitourinary: Reports difficulty urinating (retention) Mental Status Exam Mental Status Exam Narrative: Patient Appearance:wearing hospital gown, fair hygiene, in NAD Patient Orientation: alert, oriented to date/place/month/year Patient Behavior: Appropriate and Cooperative Mood Description: Anxious Affect Description: Appropriate and Anxious Speech Pattern: Clear, some slight delayed response rate, otherwise regular rhythm, soft volume, spontaneous Hallucinations: Auditory, no CAH Delusions: Not Present Thought Process: linear Thought Content: AH, otherwise future oriented Judgement/insight: Poor x 2 SI: denies HI: denies No signs of aggression towards self or others Patient Appearance: Appropriate Patient Orientation: Person, Place and Situation Level of Consciousness: Awake, Appropriate and Alert Patient Behavior: Appropriate and Cooperative Mood Description: Anxious Affect Description: Appropriate and Anxious Ability to Follow Directions: Good Speech Pattern: Clear and Appropriate Diagnostics Vital Signs (24Hr): Vital Signs - 24 hr 07/16/20 21:16 07/17/20 06:25 Temperature 98.1 F 98.7 F Pulse Rate 69 66 Respiratory Rate 16 Blood Pressure 171/86 H 159/79 H Pulse Oximetry 96 Body Mass Index 29.6 Labs Results: 07/17/20 07:54 07/17/20 07:54 Labs: Laboratory Results - last 48 hr 07/16/20 07/16/20 07/16/20 07:43 07:46 07:46 WBC RBC Hgb Hct MCV MCH MCHC RDW Plt Count MPV Immature Gran % (Auto) Neut % (Auto) Lymph % (Auto) [place] % (Auto) Eos % (Auto) Baso % (Auto) Lymph # (Auto) [place] # (Auto) Eos # (Auto) Baso # (Auto) Abs Immat Gran (auto) Absolute Neuts (auto) Absolute Nucleated RBC Nucleated RBC % (auto) Sodium Potassium Chloride Carbon Dioxide Anion Gap BUN Creatinine Estim Creat Clear Calc Estimated GFR Fasting Glucose Estimat Average Glucose 94 Hemoglobin A1c % 4.9 Calcium Total Bilirubin AST ALT Alkaline Phosphatase Total Protein Albumin Triglycerides 105 Cholesterol 147 LDL Cholesterol, Calc 86 HDL Cholesterol 40 Vitamin B12 347 Folate 7.9 TSH 3.45 07/16/20 07/17/20 07/17/20 09:55 07:54 07:54 WBC 7.3 RBC 3.74 L Hgb 11.8 L Hct 34.1 L MCV 91.2 MCH 31.6 MCHC 34.6 RDW 13.3 Plt Count 166 MPV 8.8 L Immature Gran % (Auto) 0.4 Neut % (Auto) 77.4 H Lymph % (Auto) 14.6 L [place] % (Auto) 7.3 Eos % (Auto) 0.0 Baso % (Auto) 0.3 Lymph # (Auto) 1.1 L [place] # (Auto) 0.5 Eos # (Auto) 0.0 Baso # (Auto) 0.0 Abs Immat Gran (auto) 0.03 Absolute Neuts (auto) 5.6 Absolute Nucleated RBC 0.000 Nucleated RBC % (auto) 0.0 Sodium 143 143 Potassium 4.4 4.9 Chloride 108 109 H Carbon Dioxide 27 27 Anion Gap 12 12 BUN 41 H 39 H Creatinine 2.03 H 2.05 H Estim Creat Clear Calc 32.9 32.6 Estimated GFR 32 32 Fasting Glucose 144 H 104 H Estimat Average Glucose Hemoglobin A1c % Calcium 8.3 L 8.0 L Total Bilirubin 0.6 0.6 AST 15 D 17 ALT 25 30 Alkaline Phosphatase 68 68 Total Protein 5.6 L 5.5 L Albumin 3.6 3.6 Triglycerides Cholesterol LDL Cholesterol, Calc HDL Cholesterol Vitamin B12 Folate TSH Imaging Radiology Impressions: ITS Impressions Chest X-Ray 07/07/20 13:48 IMPRESSION: Unremarkable chest examination. Head CT 07/07/20 13:48 IMPRESSION: Unremarkable exam. Retroperitoneum Ultrasound 07/16/20 20:10 IMPRESSION: 1. Urinary retention. The prevoid bladder volume was 482 and the patient was unable to void for postvoid residuals. 2. The bladder wall is markedly trabeculated with scattered diverticula. 3. Moderate hydronephrosis bilaterally. Trace right perinephric free fluid. Medications Medications Current Medications Generic Name Dose Route Start Last Admin Trade Name Freq PRN Reason Stop Dose Admin Acetaminophen 650 mg 07/12/20 19:08 07/17/20 12:13 Acetaminophen 325 Mg Tablet PO 650 mg Q6H PRN Administration Headache/Pain Mild Scale (1-3) Al Hydroxide/Mg Hydroxide 30 ml 07/12/20 19:08 07/13/20 22:11 Magnesium Hydrox/Alum Hydrox 30 Ml Oral.Susp PO 30 ml Q6H PRN Administration Heartburn/Nausea Cefuroxime Axetil 250 mg 07/13/20 08:00 07/17/20 08:54 Cefuroxime Axetil 250 Mg Tablet PO 250 mg Q12H CASSIDY Administration Clozapine 50 mg 07/15/20 21:00 07/17/20 08:54 Clozapine 25 Mg Tablet PO 50 mg BID CASSIDY Administration Fluphenazine HCl 2.5 mg 07/16/20 21:00 07/17/20 08:54 Fluphenazine Hcl 2.5 Mg/5 Ml Elixir PO 2.5 mg BID CASSIDY Administration Magnesium Hydroxide 30 ml 07/12/20 19:08 Milk Of Magnesia 30 Ml Oral.Susp PO DAILY PRN Constipation Multi-Ingred Cream/Lotion/Oil/Oint 1 appl 07/15/20 21:00 07/17/20 08:54 Mineral Oil/Petrolatum,White 106 Gm Tube TOPICAL 1 appl BID CASSIDY Administration Pharmacy Consult 1 each 07/07/20 17:02 Consult Rx Perform Med Rec MISCELLANE ONCE PRN Consult order Polyethylene Glycol 17 gm 07/16/20 16:50 07/17/20 08:57 Polyethylene Glycol 3350 17 Gm Powd.Pack PO 17 gm DAILY CASSIDY Administration Allergies Allergies Allergy/AdvReac Type Severity Reaction Status Date / Time aspirin [Aspirin] Allergy Severe SWELLING Verified 07/07/20 19:44 Assessment & Plan Assessment & Plan (1) Schizophrenia: Status: Acute Code(s): F20.9 - Schizophrenia, unspecified Assessment and Plan: 1. Continue clozaril to 50mg po BID- titration on hold due to urinary retention 2. continue prolixin 2.5mg po BID 3. Weekly CBC with diff 4. Obtain collateral information 5. Aftercare planning (2) UTI (urinary tract infection): Status: Acute Code(s): N39.0 - Urinary tract infection, site not specified Assessment and Plan: 1. continue cefuroxime (3) Urinary retention: Status: Acute Code(s): R33.9 - Retention of urine, unspecified Assessment and Plan: 1. continue indwelling catheter 2. monitor CMP 3. Urology follow up during inpt admission Greater than 50% of the session was spent on counseling and/or coordination of care Reason for contiued inpatient stay Substantial Risk for: inability to function
[2020-07-17 18:00] VITALS: BP 158/73; PULSE 73; TEMP 36.4
[2020-07-18 06:30] VITALS: BP 164/82; PULSE 84; RESP 16; TEMP 36.6; O2SAT 95
--- NOTE | 2020-07-18 09:11 | PM.UROCN ---
History of Present Illness Consult details Consult date: 07/17/20 Narrative: Anup has been on the inpatient behavioral unit 4 week Had difficulty with urination Was found to have large residuals There was difficulty with Simmons catheter placement No prior history of urinary issues No prostate medications Simmons catheter placed today Over 1200 cc Catheter will need to remain for minimum of 1 week Can use catheter cap in order to reduce Simmons catheter tension Review of Systems Review of Systems: Yes all other systems are reviewed and are negative Constitutional: Constitutional: Denies chills and Denies fever(s) Cardiovascular: Cardiovascular: Reports no additional cardiovascular complaints and Denies syncope Respiratory: Respiratory: Denies cough Gastrointestinal: Gastrointestinal: Denies abdominal pain and Denies heartburn Genitourinary: Genitourinary: Reports as per HPI and Denies change in libido Neurologic: Denies syncope Psychiatric: Psychiatric: Denies change in libido Endocrine: Endocrine: Denies change in libido [facility] Past Medical History Medical History (Updated 07/18/20 @ 08:41 by Jennifer Prince) Blindness Schizophrenia Social History Social History Household Members: None Housing: Apartment Alcohol intake: never Smoking Status: Never smoker Use of substances other than those prescribed or required for medical reasons: No Currently Displaying Signs/Symptoms of Drug Intoxication Withdrawal: No Have you been hit, kicked, punched, or otherwise hurt by someone within the past year? If so, by whom?: No Do you feel safe in your current relationship?: No Current Relationship Is there a partner from a previous relationship who is making you feel unsafe now?: No Are you made to feel afraid or neglected: No Advance Directives: No Advance Directives Information Provided: No Do you have thoughts of harming others: None Do you have a plan to hurt others: No Plan Recently lost weight without trying: No service: No Sexual orientation: Straight/Heterosexual Meds Allergies Allergy/AdvReac Type Severity Reaction Status Date / Time aspirin [Aspirin] Allergy Severe SWELLING Verified 07/07/20 19:44 Active Medications: Current Medications Generic Name Dose Route Start Last Admin Trade Name Freq PRN Reason Stop Dose Admin Acetaminophen 650 mg 07/12/20 19:08 07/17/20 12:13 Acetaminophen 325 Mg Tablet PO 650 mg Q6H PRN Administration Headache/Pain Mild Scale (1-3) Al Hydroxide/Mg Hydroxide 30 ml 07/12/20 19:08 07/13/20 22:11 Magnesium Hydrox/Alum Hydrox 30 Ml Oral.Susp PO 30 ml Q6H PRN Administration Heartburn/Nausea Cefuroxime Axetil 250 mg 07/13/20 08:00 07/17/20 20:14 Cefuroxime Axetil 250 Mg Tablet PO 250 mg Q12H CASSIDY Administration Clozapine 50 mg 07/15/20 21:00 07/17/20 20:14 Clozapine 25 Mg Tablet PO 50 mg BID CASSIDY Administration Fluphenazine HCl 2.5 mg 07/16/20 21:00 07/17/20 20:14 Fluphenazine Hcl 2.5 Mg/5 Ml Elixir PO 2.5 mg BID CASSIDY Administration Magnesium Hydroxide 30 ml 07/12/20 19:08 Milk Of Magnesia 30 Ml Oral.Susp PO DAILY PRN Constipation Multi-Ingred Cream/Lotion/Oil/Oint 1 appl 07/15/20 21:00 07/17/20 20:25 Mineral Oil/Petrolatum,White 106 Gm Tube TOPICAL 1 appl BID CASSIDY Administration Pharmacy Consult 1 each 07/07/20 17:02 Consult Rx Perform Med Rec MISCELLANE ONCE PRN Consult order Polyethylene Glycol 17 gm 07/16/20 16:50 07/17/20 08:57 Polyethylene Glycol 3350 17 Gm Powd.Pack PO 17 gm DAILY CASSIDY Administration Home Medications Medication Instructions Recorded Confirmed Last Taken Type clozapine 3 tab PO BEDTIME 07/07/20 07/07/20 Unknown History Physical Exam Vital Signs: Vital Signs: Last Vital Signs Temp 98 F 07/18/20 06:30 Pulse 84 07/18/20 06:30 Resp 16 07/18/20 06:30 BP 164/82 H 07/18/20 06:30 Pulse Ox 95 07/18/20 06:30 Body Mass Index 29.6 Const: General: cooperative, healthy appearing, comfortable and no acute distress Orientation/consciousness: patient oriented x3 HENMT: Face and sinus: Yes normal facial exam Mouth: moist mucous membranes Neck: Neck: Yes normal visual inspection, Yes full ROM and Yes trachea midline Chest: Chest palpation & inspection: normal inspection of the chest Resp: Effort & Inspection: normal respiratory effort, able to speak in complete sentences and no respiratory distress GI: Inspection: Yes normal to inspection Back/Spine/Pelvis: Cervical Spine: normal cervical lordosis Thoracic/Lumbar Spine: thoracic and lumbar spine normal to inspection Skin: General skin exam: no rashes or lesions noted Neuro: General: patient oriented x3, gait normal, tone normal and moves all extremities Extrem: General: Yes normal to inspection and Yes capillary refill normal Results Labs Result diagrams: 07/17/20 07:54 07/17/20 07:54 Labs: Urine 07/07/20 07/08/20 Range/Units 15:38 19:43 Urine Color YELLOW YELLOW Urine Appearance HAZY CLOUDY Urine pH 6.5 6.0 (5.0-8.0) Ur Specific Bertrand 1.010 1.010 (1.005-1.025) Urine Protein NEG TRACE (NEG-TRACE) MG/DL Urine Glucose (UA) NEG NEG (NEG) MG/DL All other labs normal. Assessment and Plan (1) Urinary retention: Status: Acute Simmons catheter placed Start finasteride and tamsulosin Procedures Catheter Insertion (Urinary) Date of insertion: 07/17/20 Replacement of catheter present on admission: No Reason for placing: Acute urinary retention Bladder scan/ultrasound used before catheterization: Yes Estimated amount of urine (mLs): 1,200 Antiseptic solution prep: Povidone-Iodine Catheter type/location: 2-way Urethral Size (Scottish): 16 Catheter balloon size (mL): 10
[2020-07-18 09:40] LABS: Alanine Aminotransferase 37 U/L (0-40); Albumin Level 3.9 g/dL (3.5-5.0); Alkaline Phosphatase 76 U/L (39-117); Anion Gap 12 (12-20); Aspartate Amino Transferase 20 U/L (5-37); Bilirubin Total 0.8 mg/dL (0.0-1.0); Blood Urea Nitrogen 30 mg/dL (9-16); Carbon Dioxide 29 mmol/L (22-29); Chloride 105 mmol/L (96-108); Creatinine Clr Calc Pharmacy 37.1; Estimated Glomerular Filt Rate 37; Glucose Random 180 mg/dL (60-115); Potassium 4.5 mmol/L (3.3-5.1); Sodium 141 mmol/L (135-145); Total Protein 5.9 g/dL (6.5-8.0)
[2020-07-18] MEDS: Mineral Oil/Petrolatum,White 106 GM Tube 1 APPL TOPICAL ×2 (09:42→20:36)
[2020-07-18] MEDS: polyethylene glycoL 3350 17 GM POWD.PACK PO (09:43)
[2020-07-18] MEDS: cloZAPine 25 MG TABLET 50 MG PO (09:45)
[2020-07-18 18:00] VITALS: BP 146/80; PULSE 70; TEMP 36.4
--- NOTE | 2020-07-18 18:01 | HO.PSYCHPN ---
Subjective Subjective Date of Service: 07/18/20 Reason For Visit: acute psychosis Interim History: Pt continues to report AH that are distressing. He reports that voices are bothersome but at the same times does not think medications work. He continues to cummings, renal function improving. He has been mostly in bed, minimally interactive with peers or staff but no aggression towards self or others. This copy writer spoke with his daughter who reports pt telling him that he is very worried about his life and people may be going after him. Daughter reports at baseline he does hear voices but paranoia is much less. Review of Systems Review of Systems patient reporting no complaints Yes all other systems are reviewed and are negative Constitutional: Denies chills and Denies fever(s) Cardiovascular: Reports no additional cardiovascular complaints, Denies chest pain, Denies syncope and Denies dyspnea Respiratory: Denies chest congestion, Denies cough and Denies dyspnea Gastrointestinal: Denies abdominal pain and Denies heartburn Genitourinary: Reports as per HPI, Denies change in libido and Reports difficulty urinating (retention) Denies syncope Psychiatric: Denies change in libido Endocrine: Denies change in libido Mental Status Exam Mental Status Exam Narrative: Patient Appearance:wearing hospital gown, fair hygiene, in NAD Patient Orientation: alert, oriented to date/place/month/year Patient Behavior: Appropriate and Cooperative Mood Description: Anxious Affect Description: Appropriate and Anxious Speech Pattern: Clear, some slight delayed response rate, otherwise regular rhythm, soft volume, spontaneous Hallucinations: Auditory, no CAH Delusions: Not Present Thought Process: linear Thought Content: AH, otherwise future oriented Judgement/insight: Poor x 2 SI: denies HI: denies No signs of aggression towards self or others Patient Appearance: Appropriate Patient Orientation: Person, Place and Situation Level of Consciousness: Awake, Appropriate and Alert Patient Behavior: Appropriate and Cooperative Mood Description: Anxious Affect Description: Appropriate and Anxious Ability to Follow Directions: Good Speech Pattern: Clear and Appropriate Diagnostics Vital Signs (24Hr): Vital Signs - 24 hr 07/18/20 06:30 Temperature 98 F Pulse Rate 84 Respiratory Rate 16 Blood Pressure 164/82 H Pulse Oximetry 95 Body Mass Index 29.6 Labs Results: 07/17/20 07:54 07/18/20 09:00 Labs: Laboratory Results - last 48 hr 07/17/20 07/17/20 07/18/20 07:54 07:54 09:00 WBC 7.3 RBC 3.74 L Hgb 11.8 L Hct 34.1 L MCV 91.2 MCH 31.6 MCHC 34.6 RDW 13.3 Plt Count 166 MPV 8.8 L Immature Gran % (Auto) 0.4 Neut % (Auto) 77.4 H Lymph % (Auto) 14.6 L [place] % (Auto) 7.3 Eos % (Auto) 0.0 Baso % (Auto) 0.3 Lymph # (Auto) 1.1 L [place] # (Auto) 0.5 Eos # (Auto) 0.0 Baso # (Auto) 0.0 Abs Immat Gran (auto) 0.03 Absolute Neuts (auto) 5.6 Absolute Nucleated RBC 0.000 Nucleated RBC % (auto) 0.0 Sodium 143 141 Potassium 4.9 4.5 Chloride 109 H 105 Carbon Dioxide 27 29 Anion Gap 12 12 BUN 39 H 30 H Creatinine 2.05 H 1.80 H Estim Creat Clear Calc 32.6 37.1 Estimated GFR 32 37 Random Glucose 180 H D Fasting Glucose 104 H Calcium 8.0 L 9.0 D Total Bilirubin 0.6 0.8 AST 17 20 ALT 30 37 Alkaline Phosphatase 68 76 Total Protein 5.5 L 5.9 L Albumin 3.6 3.9 Imaging Radiology Impressions: ITS Impressions Chest X-Ray 07/07/20 13:48 IMPRESSION: Unremarkable chest examination. Head CT 07/07/20 13:48 IMPRESSION: Unremarkable exam. Retroperitoneum Ultrasound 07/16/20 20:10 IMPRESSION: 1. Urinary retention. The prevoid bladder volume was 482 and the patient was unable to void for postvoid residuals. 2. The bladder wall is markedly trabeculated with scattered diverticula. 3. Moderate hydronephrosis bilaterally. Trace right perinephric free fluid. Medications Medications Current Medications Generic Name Dose Route Start Last Admin Trade Name Freq PRN Reason Stop Dose Admin Acetaminophen 650 mg 07/12/20 19:08 07/17/20 12:13 Acetaminophen 325 Mg Tablet PO 650 mg Q6H PRN Administration Headache/Pain Mild Scale (1-3) Al Hydroxide/Mg Hydroxide 30 ml 07/12/20 19:08 07/13/20 22:11 Magnesium Hydrox/Alum Hydrox 30 Ml Oral.Susp PO 30 ml Q6H PRN Administration Heartburn/Nausea Cefuroxime Axetil 250 mg 07/13/20 08:00 07/18/20 09:43 Cefuroxime Axetil 250 Mg Tablet PO 250 mg Q12H PENDING SALE TO [facility] Administration Clozapine 75 mg 07/18/20 21:00 Clozapine 25 Mg Tablet PO BEDTIME PENDING SALE TO [facility] Clozapine 50 mg 07/19/20 09:00 Clozapine 25 Mg Tablet PO DAILY PENDING SALE TO [facility] Doxazosin Mesylate 4 mg 07/18/20 21:00 Doxazosin Mesylate 2 Mg Tablet PO BEDTIME PENDING SALE TO [facility] Protocol Finasteride 5 mg 07/19/20 09:00 Finasteride 5 Mg Tablet PO DAILY PENDING SALE TO [facility] Fluphenazine HCl 5 mg 07/18/20 21:00 Fluphenazine Hcl 2.5 Mg/5 Ml Elixir PO BID PENDING SALE TO [facility] Magnesium Hydroxide 30 ml 07/12/20 19:08 Milk Of Magnesia 30 Ml Oral.Susp PO DAILY PRN Constipation Multi-Ingred Cream/Lotion/Oil/Oint 1 appl 07/15/20 21:00 07/18/20 09:42 Mineral Oil/Petrolatum,White 106 Gm Tube TOPICAL 1 appl BID PENDING [facility] TO [facility] Administration Pharmacy Consult 1 each 07/07/20 17:02 Consult Rx Perform Med Rec MISCELLANE ONCE PRN Consult order Polyethylene Glycol 17 gm 07/16/20 16:50 07/18/20 09:43 Polyethylene Glycol 3350 17 Gm Powd.Pack PO 17 gm DAILY PENDING SALE TO [facility] Administration Allergies Allergies Allergy/AdvReac Type Severity Reaction Status Date / Time aspirin [Aspirin] Allergy Severe SWELLING Verified 07/07/20 19:44 Assessment & Plan Assessment & Plan (1) Urinary retention: Status: Acute Code(s): R33.9 - Retention of urine, unspecified (2) Schizophrenia: Qualifiers: Schizophrenia type: paranoid schizophrenia Qualified Code(s): F20.0 - Paranoid schizophrenia Status: Acute Code(s): F20.9 - Schizophrenia, unspecified Assessment and Plan: 1. Increase Clozaril to 50mg po daily and 75mg po qhs. Increase prolixin 5mg po BID, as we continue to titrate clozaril. Per urology: Cummings catheter placed Start finasteride and tamsulosin Greater than 50% of the session was spent on counseling and/or coordination of care Reason for contiued inpatient stay Substantial Risk for: inability to function
[2020-07-18] MEDS: cloZAPine 25 MG TABLET 75 MG PO (20:31)
[2020-07-18 20:32] VITALS: BP 146/80; PULSE 70
[2020-07-18] MEDS: Doxazosin Mesylate 2 MG TABLET 4 MG PO (20:32)
[2020-07-19 06:25] VITALS: BP 144/75; PULSE 74; RESP 18; TEMP 36.6; O2SAT 97
[2020-07-19] MEDS: polyethylene glycoL 3350 17 GM POWD.PACK PO (08:58)
[2020-07-19] MEDS: cloZAPine 25 MG TABLET 50 MG PO (08:59)
[2020-07-19] MEDS: Finasteride 5 MG TABLET PO (08:59)
[2020-07-19] MEDS: Mineral Oil/Petrolatum,White 106 GM Tube 1 APPL TOPICAL ×2 (10:43→21:26)
--- NOTE | 2020-07-19 15:58 | HO.PSYCHPN ---
Subjective Subjective Date of Service: 07/19/20 Reason For Visit: acute psychosis Subjective Notes: Conditional Voluntary Interim History: Pt continues to report AH that are distressing. He reports that voices are bothersome but at the same times does not think medications work. He continues to cummings, renal function improving. He has been mostly in bed and is minimally interactive Medication Compliance: Yes Side effects from medications: No Attending Groups: No Review of Systems Acute medical concerns: Yes Urninary retention Medical Review of Systems: unchanged Review of Systems Review of Systems patient reporting no complaints Yes all other systems are reviewed and are negative Constitutional: Denies chills and Denies fever(s) Cardiovascular: Reports no additional cardiovascular complaints, Denies chest pain, Denies syncope and Denies dyspnea Respiratory: Denies chest congestion, Denies cough and Denies dyspnea Gastrointestinal: Denies abdominal pain and Denies heartburn Genitourinary: Reports as per HPI, Denies change in libido and Reports difficulty urinating (retention) Denies syncope Psychiatric: Denies change in libido Endocrine: Denies change in libido Mental Status Exam Mental Status Exam Patient Appearance: Appropriate Patient Orientation: Person, Place and Situation Level of Consciousness: Awake, Appropriate and Alert Patient Behavior: Appropriate and Dependent Mood Description: Apathetic and Anxious Affect Description: Apathetic and Anxious Ability to Follow Directions: Good Speech Pattern: Clear, Soft-Spoken and Mumbled Thought Content: positive for Poverty of Content, negative for Suicidal Ideation and negative for Homicidal Ideation Judgement: Poor Diagnostics Vital Signs (24Hr): Vital Signs - 24 hr 07/18/20 18:00 07/18/20 20:32 07/19/20 06:25 Temperature 97.6 F 97.9 F Pulse Rate 70 70 74 Respiratory Rate 18 Blood Pressure 146/80 H 146/80 H 144/75 H Pulse Oximetry 97 Body Mass Index 29.6 Labs Results: 07/17/20 07:54 07/18/20 09:00 Labs: Laboratory Results - last 48 hr 07/18/20 09:00 Sodium 141 Potassium 4.5 Chloride 105 Carbon Dioxide 29 Anion Gap 12 BUN 30 H Creatinine 1.80 H Estim Creat Clear Calc 37.1 Estimated GFR 37 Random Glucose 180 H D Calcium 9.0 D Total Bilirubin 0.8 AST 20 ALT 37 Alkaline Phosphatase 76 Total Protein 5.9 L Albumin 3.9 Imaging Radiology Impressions: ITS Impressions Chest X-Ray 07/07/20 13:48 IMPRESSION: Unremarkable chest examination. Head CT 07/07/20 13:48 IMPRESSION: Unremarkable exam. Retroperitoneum Ultrasound 07/16/20 20:10 IMPRESSION: 1. Urinary retention. The prevoid bladder volume was 482 and the patient was unable to void for postvoid residuals. 2. The bladder wall is markedly trabeculated with scattered diverticula. 3. Moderate hydronephrosis bilaterally. Trace right perinephric free fluid. Medications Medications Current Medications Generic Name Dose Route Start Last Admin Trade Name Freq PRN Reason Stop Dose Admin Acetaminophen 650 mg 07/12/20 19:08 07/17/20 12:13 Acetaminophen 325 Mg Tablet PO 650 mg Q6H PRN Administration Headache/Pain Mild Scale (1-3) Al Hydroxide/Mg Hydroxide 30 ml 07/12/20 19:08 07/13/20 22:11 Magnesium Hydrox/Alum Hydrox 30 Ml Oral.Susp PO 30 ml Q6H PRN Administration Heartburn/Nausea Cefuroxime Axetil 250 mg 07/13/20 08:00 07/19/20 08:59 Cefuroxime Axetil 250 Mg Tablet PO 250 mg Q12H CASSIDY Administration Clozapine 75 mg 07/18/20 21:00 07/18/20 20:31 Clozapine 25 Mg Tablet PO 75 mg BEDTIME CASSIDY Administration Clozapine 50 mg 07/19/20 09:00 07/19/20 08:59 Clozapine 25 Mg Tablet PO 50 mg DAILY CASSIDY Administration Doxazosin Mesylate 4 mg 07/18/20 21:00 07/18/20 20:32 Doxazosin Mesylate 2 Mg Tablet PO 4 mg BEDTIME CASSIDY Administration Protocol Finasteride 5 mg 07/19/20 09:00 07/19/20 08:59 Finasteride 5 Mg Tablet PO 5 mg DAILY CASSIDY Administration Fluphenazine HCl 5 mg 07/18/20 21:00 07/19/20 08:59 Fluphenazine Hcl 2.5 Mg/5 Ml Elixir PO 5 mg BID CASSIDY Administration Magnesium Hydroxide 30 ml 07/12/20 19:08 Milk Of Magnesia 30 Ml Oral.Susp PO DAILY PRN Constipation Multi-Ingred Cream/Lotion/Oil/Oint 1 appl 07/15/20 21:00 07/19/20 10:43 Mineral Oil/Petrolatum,White 106 Gm Tube TOPICAL 1 appl BID CASSIDY Administration Pharmacy Consult 1 each 07/07/20 17:02 Consult Rx Perform Med Rec MISCELLANE ONCE PRN Consult order Polyethylene Glycol 17 gm 07/16/20 16:50 07/19/20 08:58 Polyethylene Glycol 3350 17 Gm Powd.Pack PO 17 gm DAILY CASSIDY Administration Allergies Allergies Allergy/AdvReac Type Severity Reaction Status Date / Time aspirin [Aspirin] Allergy Severe SWELLING Verified 07/07/20 19:44 Assessment & Plan Assessment & Plan (1) Urinary retention: Status: Acute Code(s): R33.9 - Retention of urine, unspecified (2) Schizophrenia: Qualifiers: Schizophrenia type: paranoid schizophrenia Qualified Code(s): F20.0 - Paranoid schizophrenia Status: Acute Code(s): F20.9 - Schizophrenia, unspecified Assessment and Plan: 1. Increase Clozaril to 50mg po daily and 75mg po qhs. Increase prolixin 5mg po BID, as we continue to titrate clozaril. Per urology: Cummings catheter placed Start finasteride and tamsulosin No change to above plan Greater than 50% of the session was spent on counseling and/or coordination of care Reason for contiued inpatient stay Substantial Risk for: inability to function
[2020-07-19 17:00] VITALS: BP 123/72; PULSE 78; TEMP 37.1
[2020-07-19 21:00] VITALS: BP 177/75; PULSE 76
[2020-07-19] MEDS: cloZAPine 25 MG TABLET 75 MG PO (21:18)
[2020-07-19 21:19] VITALS: BP 177/75; PULSE 76
[2020-07-19] MEDS: Doxazosin Mesylate 2 MG TABLET 4 MG PO (21:19)
[2020-07-20 06:25] VITALS: BP 134/73; PULSE 74; RESP 16; TEMP 36.8; O2SAT 95
[2020-07-20] MEDS: cloZAPine 25 MG TABLET 50 MG PO (08:53)
[2020-07-20] MEDS: polyethylene glycoL 3350 17 GM POWD.PACK PO (08:54)
[2020-07-20] MEDS: Finasteride 5 MG TABLET PO (08:54)
[2020-07-20 10:11] LABS: Alanine Aminotransferase 35 U/L (0-40); Albumin Level 3.6 g/dL (3.5-5.0); Alkaline Phosphatase 67 U/L (39-117); Anion Gap 13 (12-20); Aspartate Amino Transferase 17 U/L (5-37); Bilirubin Total 0.6 mg/dL (0.0-1.0); Blood Urea Nitrogen 33 mg/dL (9-16); Calcium 8.5 mg/dL (8.4-10.2); Carbon Dioxide 25 mmol/L (22-29); Chloride 109 mmol/L (96-108); Creatinine Clr Calc Pharmacy 44.5; Estimated Glomerular Filt Rate 45; Glucose Fasting 100 mg/dL (60-99); Potassium 4.7 mmol/L (3.3-5.1); Sodium 142 mmol/L (135-145); Total Protein 5.4 g/dL (6.5-8.0)
[2020-07-20] MEDS: Mineral Oil/Petrolatum,White 106 GM Tube 1 APPL TOPICAL ×2 (13:22→21:06)
--- NOTE | 2020-07-20 15:14 | PC.NURSE ---
During a conversation with his 1:1 observer pt spoke of the time he started hearing voices and how they never stopped.Pt explained he had auditory hallucinations of a man saying he will not make it and other negative comments. Pt also expressed he took care of his Mother after his divorce and only had one date.
--- NOTE | 2020-07-20 15:47 | HO.PSYCHPN ---
Subjective Subjective Date of Service: 07/20/20 Reason For Visit: acute psychosis Subjective Notes: Conditional Voluntary Interim History: Pt continues to report AH that are distressing. He reports that voices are bothersome but at the same times does not think medications work. He continues to cummings, renal function improving. He has been mostly in bed and is minimally interactive Medication Compliance: Yes Side effects from medications: No Attending Groups: No Review of Systems Acute medical concerns: No Medical Review of Systems: unchanged Review of Systems Review of Systems patient reporting no complaints Yes all other systems are reviewed and are negative Constitutional: Denies chills and Denies fever(s) Cardiovascular: Reports no additional cardiovascular complaints, Denies chest pain, Denies syncope and Denies dyspnea Respiratory: Denies chest congestion, Denies cough and Denies dyspnea Gastrointestinal: Denies abdominal pain and Denies heartburn Genitourinary: Reports as per HPI, Denies change in libido and Reports difficulty urinating (retention) Denies syncope Psychiatric: Denies change in libido Endocrine: Denies change in libido Mental Status Exam Mental Status Exam Patient Appearance: Appropriate Patient Orientation: Person, Place and Situation Level of Consciousness: Awake, Appropriate and Alert Patient Behavior: Appropriate, Dependent, Cooperative and Passive Mood Description: Apathetic, Withdrawn and Anxious Affect Description: Apathetic and Anxious Ability to Follow Directions: Good Speech Pattern: Clear, Soft-Spoken and Mumbled Thought Content: negative for Suicidal Ideation and negative for Homicidal Ideation Diagnostics Vital Signs (24Hr): Vital Signs - 24 hr 07/19/20 17:00 07/19/20 21:00 07/19/20 21:19 Temperature 98.8 F Pulse Rate 78 76 76 Respiratory Rate Blood Pressure 123/72 177/75 H 177/75 H Pulse Oximetry 07/20/20 06:25 Temperature 98.2 F Pulse Rate 74 Respiratory Rate 16 Blood Pressure 134/73 Pulse Oximetry 95 Body Mass Index 29.6 Labs Results: 07/17/20 07:54 07/20/20 08:21 Labs: Laboratory Results - last 48 hr 07/20/20 08:21 Sodium 142 Potassium 4.7 Chloride 109 H Carbon Dioxide 25 Anion Gap 13 BUN 33 H Creatinine 1.50 H Estim Creat Clear Calc 44.5 Estimated GFR 45 Fasting Glucose 100 H Calcium 8.5 Total Bilirubin 0.6 AST 17 ALT 35 Alkaline Phosphatase 67 Total Protein 5.4 L Albumin 3.6 Imaging Radiology Impressions: ITS Impressions Chest X-Ray 07/07/20 13:48 IMPRESSION: Unremarkable chest examination. Head CT 07/07/20 13:48 IMPRESSION: Unremarkable exam. Retroperitoneum Ultrasound 07/16/20 20:10 IMPRESSION: 1. Urinary retention. The prevoid bladder volume was 482 and the patient was unable to void for postvoid residuals. 2. The bladder wall is markedly trabeculated with scattered diverticula. 3. Moderate hydronephrosis bilaterally. Trace right perinephric free fluid. Medications Medications Current Medications Generic Name Dose Route Start Last Admin Trade Name Freq PRN Reason Stop Dose Admin Acetaminophen 650 mg 07/12/20 19:08 07/17/20 12:13 Acetaminophen 325 Mg Tablet PO 650 mg Q6H PRN Administration Headache/Pain Mild Scale (1-3) Al Hydroxide/Mg Hydroxide 30 ml 07/12/20 19:08 07/13/20 22:11 Magnesium Hydrox/Alum Hydrox 30 Ml Oral.Susp PO 30 ml Q6H PRN Administration Heartburn/Nausea Clozapine 75 mg 07/18/20 21:00 07/19/20 21:18 Clozapine 25 Mg Tablet PO 75 mg BEDTIME CASSIDY Administration Clozapine 50 mg 07/19/20 09:00 07/20/20 08:53 Clozapine 25 Mg Tablet PO 50 mg DAILY CASSIDY Administration Doxazosin Mesylate 4 mg 07/18/20 21:00 07/19/20 21:19 Doxazosin Mesylate 2 Mg Tablet PO 4 mg BEDTIME CASSIDY Administration Protocol Finasteride 5 mg 07/19/20 09:00 07/20/20 08:54 Finasteride 5 Mg Tablet PO 5 mg DAILY CASSIDY Administration Fluphenazine HCl 5 mg 07/20/20 21:00 Fluphenazine Hcl 5 Mg Tablet PO BID CASSIDY Magnesium Hydroxide 30 ml 07/12/20 19:08 Milk Of Magnesia 30 Ml Oral.Susp PO DAILY PRN Constipation Multi-Ingred Cream/Lotion/Oil/Oint 1 appl 07/15/20 21:00 07/20/20 13:22 Mineral Oil/Petrolatum,White 106 Gm Tube TOPICAL 1 appl BID CASSIDY Administration Pharmacy Consult 1 each 07/07/20 17:02 Consult Rx Perform Med Rec MISCELLANE ONCE PRN Consult order Polyethylene Glycol 17 gm 07/16/20 16:50 07/20/20 08:54 Polyethylene Glycol 3350 17 Gm Powd.Pack PO 17 gm DAILY CASSIDY Administration Allergies Allergies Allergy/AdvReac Type Severity Reaction Status Date / Time aspirin [Aspirin] Allergy Severe SWELLING Verified 07/07/20 19:44 Assessment & Plan Assessment & Plan (1) Urinary retention: Status: Acute Code(s): R33.9 - Retention of urine, unspecified (2) Schizophrenia: Qualifiers: Schizophrenia type: paranoid schizophrenia Qualified Code(s): F20.0 - Paranoid schizophrenia Status: Acute Code(s): F20.9 - Schizophrenia, unspecified Assessment and Plan: 1. Increase Clozaril to 50mg po daily and 75mg po qhs. Increase prolixin 5mg po BID, as we continue to titrate clozaril. Per urology: Cummings catheter placed Start finasteride and tamsulosin No change to above plan Greater than 50% of the session was spent on counseling and/or coordination of care Patient educated on: diagnosis and medication risk/benefits Informed Consent: further education needed Reason for contiued inpatient stay Substantial Risk for: inability to function
[2020-07-20 19:45] VITALS: BP 151/70; PULSE 84; TEMP 36.8
[2020-07-20 20:45] VITALS: BP 151/70; PULSE 84
[2020-07-20] MEDS: Doxazosin Mesylate 2 MG TABLET 4 MG PO (20:45)
[2020-07-20] MEDS: cloZAPine 25 MG TABLET 75 MG PO (20:46)
[2020-07-20] MEDS: fluPHENAZine HCl 5 MG TABLET PO (20:47)
[2020-07-21 06:15] VITALS: BP 146/76; PULSE 81; RESP 18; TEMP 36.8; O2SAT 97
[2020-07-21 08:16] LABS: MANUAL DIFF FLAG NO
[2020-07-21 08:21] LABS: Basophils Percent Auto 0.3 % (0-2); Hematocrit 32.7 % (42-52); Hemoglobin 11.5 g/dl (14.0-18.0); Imm Gran Abs Auto 0.05 X10*3/uL (0.00-0.03); Imm Gran Pct Auto 0.7 % (0.0-0.4); Lymphocytes Absolute Auto 1.2 X10*3/uL (1.2-4.9); Lymphocytes Percent Auto 16.5 % (20-40); Mean Corpuscular HGB Conc 35.2 g/dl (31.0-36.0); Mean Corpuscular Hemoglobin 31.4 pg (27.0-33.0); Mean Corpuscular Volume 89.3 fL (80-98); Monocytes Absolute Auto 0.4 X10*3/uL (0.1-1.2); Monocytes Percent Auto 5.7 % (2-11); Neutrophils Absolute Auto 5.8 X10*3/uL (2.0-8.3); Neutrophils Percent Auto 76.8 % (45-73); Platelet Count 168 X10*3/uL (160-400); Red Blood Count 3.66 X10*6/uL (4.60-5.80); Red Cell Distribution Width 13.1 % (11.0-16.0); White Blood Count 7.5 X10*3/uL (4.8-10.8)
[2020-07-21] MEDS: fluPHENAZine HCl 5 MG TABLET PO ×2 (08:45→20:58)
[2020-07-21] MEDS: Finasteride 5 MG TABLET PO (08:46)
[2020-07-21] MEDS: cloZAPine 25 MG TABLET 50 MG PO (08:46)
[2020-07-21] MEDS: polyethylene glycoL 3350 17 GM POWD.PACK PO (08:59)
[2020-07-21] MEDS: Mineral Oil/Petrolatum,White 106 GM Tube 1 APPL TOPICAL (08:59)
--- NOTE | 2020-07-21 17:34 | HO.PSYCHPN ---
Subjective Subjective Date of Service: 07/22/20 Reason For Visit: acute psychosis Interim History: Pt reports that voices are a little bit nicer. He continues to report that voices are telling him that he will be tortured for the rest of his life. He has been mostly in bed, encouraged to go out in the unit and participate. He is minimally interactive with peers or staff. No behaviral concenrs. Review of Systems Review of Systems patient reporting no complaints Yes all other systems are reviewed and are negative Constitutional: Denies chills and Denies fever(s) Cardiovascular: Reports no additional cardiovascular complaints, Denies chest pain, Denies syncope and Denies dyspnea Respiratory: Denies chest congestion, Denies cough and Denies dyspnea Gastrointestinal: Denies abdominal pain and Denies heartburn Genitourinary: Reports as per HPI, Denies change in libido and Reports difficulty urinating (retention) Denies syncope Psychiatric: Denies change in libido Endocrine: Denies change in libido Mental Status Exam Mental Status Exam Narrative: Patient Appearance:wearing hospital gown, fair hygiene, in NAD Patient Orientation: alert, oriented to date/place/month/year Patient Behavior: Appropriate and Cooperative Mood Description: Anxious Affect Description: Appropriate and Anxious Speech Pattern: Clear, some slight delayed response rate, otherwise regular rhythm, soft volume, spontaneous Hallucinations: Auditory, no CAH Delusions: Not Present Thought Process: linear Thought Content: AH, otherwise future oriented Judgement/insight: Poor x 2 SI: denies HI: denies No signs of aggression towards self or others Patient Appearance: Appropriate Patient Orientation: Person, Place and Situation Level of Consciousness: Awake, Appropriate and Alert Patient Behavior: Appropriate, Dependent, Cooperative and Passive Mood Description: Apathetic, Withdrawn and Anxious Affect Description: Apathetic and Anxious Ability to Follow Directions: Good Speech Pattern: Clear, Soft-Spoken and Mumbled Diagnostics Vital Signs (24Hr): Vital Signs - 24 hr 07/21/20 20:58 07/21/20 21:08 07/22/20 06:25 Temperature 98.2 F 97.5 F Pulse Rate 81 81 75 Respiratory Rate 16 Blood Pressure 130/80 130/80 136/69 Pulse Oximetry 97 Body Mass Index 29.6 Labs Results: 07/21/20 07:47 07/20/20 08:21 Labs: Laboratory Results - last 48 hr 07/21/20 07:47 WBC 7.5 RBC 3.66 L Hgb 11.5 L Hct 32.7 L MCV 89.3 MCH 31.4 MCHC 35.2 RDW 13.1 Plt Count 168 MPV 9.0 L Immature Gran % (Auto) 0.7 H Neut % (Auto) 76.8 H Lymph % (Auto) 16.5 L [place] % (Auto) 5.7 Eos % (Auto) 0.0 Baso % (Auto) 0.3 Lymph # (Auto) 1.2 [place] # (Auto) 0.4 Eos # (Auto) 0.0 Baso # (Auto) 0.0 Abs Immat Gran (auto) 0.05 H Absolute Neuts (auto) 5.8 Absolute Nucleated RBC 0.000 Nucleated RBC % (auto) 0.0 Imaging Radiology Impressions: ITS Impressions Chest X-Ray 07/07/20 13:48 IMPRESSION: Unremarkable chest examination. Head CT 07/07/20 13:48 IMPRESSION: Unremarkable exam. Retroperitoneum Ultrasound 07/16/20 20:10 IMPRESSION: 1. Urinary retention. The prevoid bladder volume was 482 and the patient was unable to void for postvoid residuals. 2. The bladder wall is markedly trabeculated with scattered diverticula. 3. Moderate hydronephrosis bilaterally. Trace right perinephric free fluid. Medications Medications Current Medications Generic Name Dose Route Start Last Admin Trade Name Freq PRN Reason Stop Dose Admin Acetaminophen 650 mg 07/12/20 19:08 07/17/20 12:13 Acetaminophen 325 Mg Tablet PO 650 mg Q6H PRN Administration Headache/Pain Mild Scale (1-3) Al Hydroxide/Mg Hydroxide 30 ml 07/12/20 19:08 07/13/20 22:11 Magnesium Hydrox/Alum Hydrox 30 Ml Oral.Susp PO 30 ml Q6H PRN Administration Heartburn/Nausea Clozapine 100 mg 07/21/20 21:00 07/21/20 20:58 Clozapine 100 Mg Tablet PO 100 mg BEDTIME CASSIDY Administration Clozapine 75 mg 07/23/20 09:00 Clozapine 25 Mg Tablet PO DAILY CASSIDY Doxazosin Mesylate 4 mg 07/18/20 21:00 07/21/20 20:58 Doxazosin Mesylate 2 Mg Tablet PO 4 mg BEDTIME CASSIDY Administration Protocol Finasteride 5 mg 07/19/20 09:00 07/22/20 08:52 Finasteride 5 Mg Tablet PO 5 mg DAILY CASSIDY Administration Fluphenazine HCl 5 mg 07/20/20 21:00 07/22/20 08:52 Fluphenazine Hcl 5 Mg Tablet PO 5 mg BID CASSIDY Administration Magnesium Hydroxide 30 ml 07/12/20 19:08 Milk Of Magnesia 30 Ml Oral.Susp PO DAILY PRN Constipation Multi-Ingred Cream/Lotion/Oil/Oint 1 appl 07/15/20 21:00 07/22/20 10:56 Mineral Oil/Petrolatum,White 106 Gm Tube TOPICAL 1 appl BID CASSIDY Administration Pharmacy Consult 1 each 07/07/20 17:02 Consult Rx Perform Med Rec MISCELLANE ONCE PRN Consult order Polyethylene Glycol 17 gm 07/16/20 16:50 07/22/20 08:52 Polyethylene Glycol 3350 17 Gm Powd.Pack PO 17 gm DAILY CASSIDY Administration Allergies Allergies Allergy/AdvReac Type Severity Reaction Status Date / Time aspirin [Aspirin] Allergy Severe SWELLING Verified 07/07/20 19:44 Assessment & Plan Assessment & Plan (1) Urinary retention: Status: Acute Code(s): R33.9 - Retention of urine, unspecified (2) Schizophrenia: Qualifiers: Schizophrenia type: paranoid schizophrenia Qualified Code(s): F20.0 - Paranoid schizophrenia Status: Acute Code(s): F20.9 - Schizophrenia, unspecified Assessment and Plan: 1. Increase Clozaril to 50mg po daily and 100mg po qhs. Continue prolixin 5mg po BID, as we continue to titrate clozaril. Per urology: Simmons catheter placed Start finasteride and tamsulosin No change to above plan Greater than 50% of the session was spent on counseling and/or coordination of care Reason for contiued inpatient stay Substantial Risk for: inability to function
[2020-07-21 20:58] VITALS: BP 130/80; PULSE 81
[2020-07-21] MEDS: cloZAPine 100 MG TABLET PO (20:58)
[2020-07-21] MEDS: Doxazosin Mesylate 2 MG TABLET 4 MG PO (20:58)
[2020-07-21 21:08] VITALS: BP 130/80; PULSE 81; TEMP 36.8
[2020-07-22 06:25] VITALS: BP 136/69; PULSE 75; RESP 16; TEMP 36.4; O2SAT 97
[2020-07-22] MEDS: Finasteride 5 MG TABLET PO (08:52)
[2020-07-22] MEDS: cloZAPine 25 MG TABLET 50 MG PO (08:52)
[2020-07-22] MEDS: fluPHENAZine HCl 5 MG TABLET PO ×2 (08:52→20:04)
[2020-07-22] MEDS: polyethylene glycoL 3350 17 GM POWD.PACK PO (08:52)
[2020-07-22] MEDS: Mineral Oil/Petrolatum,White 106 GM Tube 1 APPL TOPICAL ×2 (10:56→20:11)
--- NOTE | 2020-07-22 17:37 | P.PNPSI_ITS ---
Subjective Subjective Date of Service: 07/22/20 Reason For Visit: acute psychosis Interim History: He continues to report that voices are telling him that he will be tortured for the rest of his life, although he reports frequency is less. He reports physically feels less pain. He has been mostly in bed, encouraged to go out in the unit and participate. He is minimally interactive with peers or staff. No behavioral concerns. Will complete CMP- monitor renal function. Review of Systems Review of Systems patient reporting no complaints Yes all other systems are reviewed and are negative Constitutional: Denies chills and Denies fever(s) Cardiovascular: Reports no additional cardiovascular complaints, Denies chest pain, Denies syncope and Denies dyspnea Respiratory: Denies chest congestion, Denies cough and Denies dyspnea Gastrointestinal: Denies abdominal pain and Denies heartburn Genitourinary: Reports as per HPI, Denies change in libido and Reports difficulty urinating (retention) Denies syncope Psychiatric: Denies change in libido Endocrine: Denies change in libido Mental Status Exam Mental Status Exam Narrative: Patient Appearance:wearing hospital gown, fair hygiene, in NAD Patient Orientation: alert, oriented to date/place/month/year Patient Behavior: Appropriate and Cooperative Mood Description: Anxious Affect Description: Appropriate and Anxious Speech Pattern: Clear, some slight delayed response rate, otherwise regular rhythm, soft volume, spontaneous Hallucinations: Auditory, no CAH Delusions: Not Present Thought Process: linear Thought Content: AH, otherwise future oriented Judgement/insight: Poor x 2 SI: denies HI: denies No signs of aggression towards self or others Patient Appearance: Appropriate Patient Orientation: Person, Place and Situation Level of Consciousness: Awake, Appropriate and Alert Patient Behavior: Appropriate, Dependent, Cooperative and Passive Mood Description: Apathetic, Withdrawn and Anxious Affect Description: Apathetic and Anxious Ability to Follow Directions: Good Speech Pattern: Clear, Soft-Spoken and Mumbled Diagnostics Vital Signs (24Hr): Vital Signs - 24 hr 07/21/20 20:58 07/21/20 21:08 07/22/20 06:25 Temperature 98.2 F 97.5 F Pulse Rate 81 81 75 Respiratory Rate 16 Blood Pressure 130/80 130/80 136/69 Pulse Oximetry 97 Body Mass Index 29.6 Labs Results: 07/21/20 07:47 07/20/20 08:21 Labs: Laboratory Results - last 48 hr 07/21/20 07:47 WBC 7.5 RBC 3.66 L Hgb 11.5 L Hct 32.7 L MCV 89.3 MCH 31.4 MCHC 35.2 RDW 13.1 Plt Count 168 MPV 9.0 L Immature Gran % (Auto) 0.7 H Neut % (Auto) 76.8 H Lymph % (Auto) 16.5 L [place] % (Auto) 5.7 Eos % (Auto) 0.0 Baso % (Auto) 0.3 Lymph # (Auto) 1.2 [place] # (Auto) 0.4 Eos # (Auto) 0.0 Baso # (Auto) 0.0 Abs Immat Gran (auto) 0.05 H Absolute Neuts (auto) 5.8 Absolute Nucleated RBC 0.000 Nucleated RBC % (auto) 0.0 Imaging Radiology Impressions: ITS Impressions Chest X-Ray 07/07/20 13:48 IMPRESSION: Unremarkable chest examination. Head CT 07/07/20 13:48 IMPRESSION: Unremarkable exam. Retroperitoneum Ultrasound 07/16/20 20:10 IMPRESSION: 1. Urinary retention. The prevoid bladder volume was 482 and the patient was unable to void for postvoid residuals. 2. The bladder wall is markedly trabeculated with scattered diverticula. 3. Moderate hydronephrosis bilaterally. Trace right perinephric free fluid. Medications Medications Current Medications Generic Name Dose Route Start Last Admin Trade Name Freq PRN Reason Stop Dose Admin Acetaminophen 650 mg 07/12/20 19:08 07/17/20 12:13 Acetaminophen 325 Mg Tablet PO 650 mg Q6H PRN Administration Headache/Pain Mild Scale (1-3) Al Hydroxide/Mg Hydroxide 30 ml 07/12/20 19:08 07/13/20 22:11 Magnesium Hydrox/Alum Hydrox 30 Ml Oral.Susp PO 30 ml Q6H PRN Administration Heartburn/Nausea Clozapine 100 mg 07/21/20 21:00 07/21/20 20:58 Clozapine 100 Mg Tablet PO 100 mg BEDTIME CASSIDY Administration Clozapine 75 mg 07/23/20 09:00 Clozapine 25 Mg Tablet PO DAILY CASSIDY Doxazosin Mesylate 4 mg 07/18/20 21:00 07/21/20 20:58 Doxazosin Mesylate 2 Mg Tablet PO 4 mg BEDTIME CASSIDY Administration Protocol Finasteride 5 mg 07/19/20 09:00 07/22/20 08:52 Finasteride 5 Mg Tablet PO 5 mg DAILY CASSIDY Administration Fluphenazine HCl 5 mg 07/20/20 21:00 07/22/20 08:52 Fluphenazine Hcl 5 Mg Tablet PO 5 mg BID CASSIDY Administration Magnesium Hydroxide 30 ml 07/12/20 19:08 Milk Of Magnesia 30 Ml Oral.Susp PO DAILY PRN Constipation Multi-Ingred Cream/Lotion/Oil/Oint 1 appl 07/15/20 21:00 07/22/20 10:56 Mineral Oil/Petrolatum,White 106 Gm Tube TOPICAL 1 appl BID CASSIDY Administration Pharmacy Consult 1 each 07/07/20 17:02 Consult Rx Perform Med Rec MISCELLANE ONCE PRN Consult order Polyethylene Glycol 17 gm 07/16/20 16:50 07/22/20 08:52 Polyethylene Glycol 3350 17 Gm Powd.Pack PO 17 gm DAILY CASSIDY Administration Allergies Allergies Allergy/AdvReac Type Severity Reaction Status Date / Time aspirin [Aspirin] Allergy Severe SWELLING Verified 07/07/20 19:44 Assessment & Plan Assessment & Plan (1) Urinary retention: Status: Acute Code(s): R33.9 - Retention of urine, unspecified (2) Schizophrenia: Qualifiers: Schizophrenia type: paranoid schizophrenia Qualified Code(s): F20.0 - Paranoid schizophrenia Status: Acute Code(s): F20.9 - Schizophrenia, unspecified Assessment and Plan: 1. Increase Clozaril to 100mg po daily and 100mg po qhs. Continue prolixin 5mg po BID, as we continue to titrate clozaril. Per urology: Simmons catheter placed continue finasteride and doxazosin No change to above plan Greater than 50% of the session was spent on counseling and/or coordination of care Reason for contiued inpatient stay Substantial Risk for: inability to function
[2020-07-22 18:00] VITALS: BP 131/72; PULSE 75; TEMP 36.5
[2020-07-22 20:03] VITALS: BP 131/72; PULSE 75
[2020-07-22] MEDS: Doxazosin Mesylate 2 MG TABLET 4 MG PO (20:03)
[2020-07-22] MEDS: cloZAPine 100 MG TABLET PO (20:04)
[2020-07-23 06:20] VITALS: BP 139/73; PULSE 71; RESP 16; TEMP 36.5; O2SAT 97
[2020-07-23] MEDS: cloZAPine 25 MG TABLET 75 MG PO (08:34)
[2020-07-23] MEDS: fluPHENAZine HCl 5 MG TABLET PO ×2 (08:34→21:52)
[2020-07-23] MEDS: Finasteride 5 MG TABLET PO (08:35)
[2020-07-23 08:46] LABS: Alanine Aminotransferase 46 U/L (0-40); Albumin Level 3.4 g/dL (3.5-5.0); Alkaline Phosphatase 66 U/L (39-117); Anion Gap 11 (12-20); Aspartate Amino Transferase 20 U/L (5-37); Bilirubin Total 0.4 mg/dL (0.0-1.0); Blood Urea Nitrogen 25 mg/dL (9-16); Calcium 8.4 mg/dL (8.4-10.2); Carbon Dioxide 26 mmol/L (22-29); Chloride 109 mmol/L (96-108); Creatinine Clr Calc Pharmacy 55.7; Estimated Glomerular Filt Rate 59; Glucose Fasting 112 mg/dL (60-99); Potassium 4.3 mmol/L (3.3-5.1); Sodium 142 mmol/L (135-145); Total Protein 5.1 g/dL (6.5-8.0)
[2020-07-23] MEDS: polyethylene glycoL 3350 17 GM POWD.PACK PO (13:00)
[2020-07-23] MEDS: Mineral Oil/Petrolatum,White 106 GM Tube 1 APPL TOPICAL ×2 (13:00→22:06)
--- NOTE | 2020-07-23 14:08 | HO.PSYCHPN ---
Subjective Subjective Date of Service: 07/23/20 Reason For Visit: acute psychosis Interim History: He was up earlier today and later in evening last night. Pt reports hearing voices but less and they are nicer. He states voices not telling him all the bad things that will happen to him such as being tortured for life until he dies. He denies SI/HI. He needs assistance to remind him and help him initiate self care. He has been taking medications as prescribed. No EPS on exam. Will continue to monitor renal function and urinary retention. Review of Systems Review of Systems patient reporting no complaints Yes all other systems are reviewed and are negative Constitutional: Denies chills and Denies fever(s) Cardiovascular: Reports no additional cardiovascular complaints, Denies chest pain, Denies syncope and Denies dyspnea Respiratory: Denies chest congestion, Denies cough and Denies dyspnea Gastrointestinal: Denies abdominal pain and Denies heartburn Genitourinary: Reports as per HPI, Denies change in libido and Reports difficulty urinating (retention) Denies syncope Psychiatric: Denies change in libido Endocrine: Denies change in libido Mental Status Exam Mental Status Exam Narrative: Patient Appearance:wearing hospital gown, fair hygiene, in NAD Patient Orientation: alert, oriented to date/place/month/year Patient Behavior: Appropriate and Cooperative Mood Description: Anxious Affect Description: Appropriate and Anxious Speech Pattern: Clear, some slight delayed response rate, otherwise regular rhythm, soft volume, spontaneous Hallucinations: Auditory, no CAH Delusions: Not Present Thought Process: linear Thought Content: AH, otherwise future oriented Judgement/insight: Poor x 2 SI: denies HI: denies No signs of aggression towards self or others Patient Appearance: Appropriate Patient Orientation: Person, Place and Situation Level of Consciousness: Awake, Appropriate and Alert Patient Behavior: Appropriate, Dependent, Cooperative and Passive Mood Description: Apathetic, Withdrawn and Anxious Affect Description: Apathetic and Anxious Ability to Follow Directions: Good Speech Pattern: Clear, Soft-Spoken and Mumbled Diagnostics Vital Signs (24Hr): Vital Signs - 24 hr 07/22/20 18:00 07/22/20 20:03 07/23/20 06:20 Temperature 97.7 F 97.7 F Pulse Rate 75 75 71 Respiratory Rate 16 Blood Pressure 131/72 131/72 139/73 Pulse Oximetry 97 Body Mass Index 29.6 Labs Results: 07/21/20 07:47 07/23/20 08:02 Labs: Laboratory Results - last 48 hr 07/23/20 08:02 Sodium 142 Potassium 4.3 Chloride 109 H Carbon Dioxide 26 Anion Gap 11 L BUN 25 H Creatinine 1.20 Estim Creat Clear Calc 55.7 Estimated GFR 59 Fasting Glucose 112 H Calcium 8.4 Total Bilirubin 0.4 AST 20 ALT 46 H Alkaline Phosphatase 66 Total Protein 5.1 L Albumin 3.4 L Imaging Radiology Impressions: ITS Impressions Chest X-Ray 07/07/20 13:48 IMPRESSION: Unremarkable chest examination. Head CT 07/07/20 13:48 IMPRESSION: Unremarkable exam. Retroperitoneum Ultrasound 07/16/20 20:10 IMPRESSION: 1. Urinary retention. The prevoid bladder volume was 482 and the patient was unable to void for postvoid residuals. 2. The bladder wall is markedly trabeculated with scattered diverticula. 3. Moderate hydronephrosis bilaterally. Trace right perinephric free fluid. Medications Medications Current Medications Generic Name Dose Route Start Last Admin Trade Name Freq PRN Reason Stop Dose Admin Acetaminophen 650 mg 07/12/20 19:08 07/17/20 12:13 Acetaminophen 325 Mg Tablet PO 650 mg Q6H PRN Administration Headache/Pain Mild Scale (1-3) Al Hydroxide/Mg Hydroxide 30 ml 07/12/20 19:08 07/13/20 22:11 Magnesium Hydrox/Alum Hydrox 30 Ml Oral.Susp PO 30 ml Q6H PRN Administration Heartburn/Nausea Clozapine 100 mg 07/21/20 21:00 07/22/20 20:04 Clozapine 100 Mg Tablet PO 100 mg BEDTIME CASSIDY Administration Clozapine 75 mg 07/23/20 09:00 07/23/20 08:34 Clozapine 25 Mg Tablet PO 75 mg DAILY CASSIDY Administration Doxazosin Mesylate 4 mg 07/18/20 21:00 07/22/20 20:03 Doxazosin Mesylate 2 Mg Tablet PO 4 mg BEDTIME CASSIDY Administration Protocol Finasteride 5 mg 07/19/20 09:00 07/23/20 08:35 Finasteride 5 Mg Tablet PO 5 mg DAILY CASSIDY Administration Fluphenazine HCl 5 mg 07/20/20 21:00 07/23/20 08:34 Fluphenazine Hcl 5 Mg Tablet PO 5 mg BID CASSIDY Administration Magnesium Hydroxide 30 ml 07/12/20 19:08 Milk Of Magnesia 30 Ml Oral.Susp PO DAILY PRN Constipation Multi-Ingred Cream/Lotion/Oil/Oint 1 appl 07/15/20 21:00 07/22/20 20:11 Mineral Oil/Petrolatum,White 106 Gm Tube TOPICAL 1 appl BID CASSIDY Administration Pharmacy Consult 1 each 07/07/20 17:02 Consult Rx Perform Med Rec MISCELLANE ONCE PRN Consult order Polyethylene Glycol 17 gm 07/16/20 16:50 07/22/20 08:52 Polyethylene Glycol 3350 17 Gm Powd.Pack PO 17 gm DAILY CASSIDY Administration Allergies Allergies Allergy/AdvReac Type Severity Reaction Status Date / Time aspirin [Aspirin] Allergy Severe SWELLING Verified 07/07/20 19:44 Assessment & Plan Assessment & Plan (1) Urinary retention: Status: Acute Code(s): R33.9 - Retention of urine, unspecified (2) Schizophrenia: Qualifiers: Schizophrenia type: paranoid schizophrenia Qualified Code(s): F20.0 - Paranoid schizophrenia Status: Acute Code(s): F20.9 - Schizophrenia, unspecified Assessment and Plan: 1. Continue Clozaril to 100mg po daily and 100mg po qhs. Continue prolixin 5mg po BID, as we continue to titrate clozaril. Per urology: Simmons catheter placed continue finasteride and doxazosin No change to above plan Greater than 50% of the session was spent on counseling and/or coordination of care Reason for contiued inpatient stay Substantial Risk for: inability to function
[2020-07-23 19:15] VITALS: BP 150/70; PULSE 73; TEMP 36.3
[2020-07-23 21:51] VITALS: BP 150/70; PULSE 73
[2020-07-23] MEDS: Doxazosin Mesylate 2 MG TABLET 4 MG PO (21:51)
[2020-07-23] MEDS: cloZAPine 100 MG TABLET PO (21:52)
[2020-07-24 06:30] VITALS: BP 122/68; PULSE 74; RESP 16; TEMP 36.1; O2SAT 97
[2020-07-24] MEDS: cloZAPine 25 MG TABLET 75 MG PO (08:43)
[2020-07-24] MEDS: fluPHENAZine HCl 5 MG TABLET PO ×2 (08:43→20:24)
[2020-07-24] MEDS: Mineral Oil/Petrolatum,White 106 GM Tube 1 APPL TOPICAL ×2 (08:44→20:48)
[2020-07-24] MEDS: polyethylene glycoL 3350 17 GM POWD.PACK PO (08:44)
[2020-07-24] MEDS: Finasteride 5 MG TABLET PO (08:44)
[2020-07-24 14:41] VITALS: BMI 25.9
[2020-07-24 15:07] LABS: Iron 69 mcg/dL (45-160); Percent Iron Saturation 30 % (15-50); Total Iron Binding Capacity 229 mcg/dL (228-428); Unsaturated Iron Binding 160 ug/dL
--- NOTE | 2020-07-24 15:24 | P.PNPSI_ITS ---
Subjective Subjective Date of Service: 07/24/20 Reason For Visit: acute psychosis Interim History: Pt has been mostly in bed, needs significant encouragement to get out of bed. He reports voice is telling him nice things which he states this male voice sometimes talks about politics and other things that are happening in the world. He reports most distressing is when voice is telling him that he is going to be tortured. He denies SI/HI. He is sleeping/eating well. Per urologist, Dr. Quan- indwelling catheter will be removed, he will have trial of voiding with bladder check post void, if more than 300cc, catheter will have to be reinserted. Medication Compliance: Yes Side effects from medications: Yes (anticholinergic-clozaril) Attending Groups: No Review of Systems Review of Systems patient reporting no complaints Yes all other systems are reviewed and are negative Constitutional: Denies chills and Denies fever(s) Cardiovascular: Reports no additional cardiovascular complaints, Denies chest pain, Denies syncope and Denies dyspnea Respiratory: Denies chest congestion, Denies cough and Denies dyspnea Gastrointestinal: Denies abdominal pain and Denies heartburn Genitourinary: Reports as per HPI, Denies change in libido and Reports difficulty urinating (retention) Denies syncope Psychiatric: Denies change in libido Endocrine: Denies change in libido Mental Status Exam Mental Status Exam Narrative: Patient Appearance:wearing hospital gown, fair hygiene, in NAD Patient Orientation: alert, oriented to date/place/month/year Patient Behavior: Appropriate and Cooperative Mood Description: Anxious Affect Description: Appropriate and Anxious Speech Pattern: Clear, some slight delayed response rate, otherwise regular rh ythm, soft volume, spontaneous Hallucinations: Auditory, no CAH Delusions: Not Present Thought Process: linear Thought Content: AH, otherwise future oriented Judgement/insight: Poor x 2 SI: denies HI: denies No signs of aggression towards self or others Diagnostics Vital Signs (24Hr): Vital Signs - 24 hr 07/23/20 19:15 07/23/20 21:51 07/24/20 06:30 Temperature 97.4 F 97 F Pulse Rate 73 73 74 Respiratory Rate 16 Blood Pressure 150/70 H 150/70 H 122/68 Pulse Oximetry 97 Body Mass Index 25.9 Labs Results: 07/21/20 07:47 07/23/20 08:02 Labs: Laboratory Results - last 48 hr 07/23/20 07/24/20 08:02 14:23 Sodium 142 Potassium 4.3 Chloride 109 H Carbon Dioxide 26 Anion Gap 11 L BUN 25 H Creatinine 1.20 Estim Creat Clear Calc 55.7 Estimated GFR 59 Fasting Glucose 112 H Calcium 8.4 Iron 69 TIBC 229 % Saturation 30 Unsat Iron Binding 160 Total Bilirubin 0.4 AST 20 ALT 46 H Alkaline Phosphatase 66 Total Protein 5.1 L Albumin 3.4 L Imaging Radiology Impressions: ITS Impressions Chest X-Ray 07/07/20 13:48 IMPRESSION: Unremarkable chest examination. Head CT 07/07/20 13:48 IMPRESSION: Unremarkable exam. Retroperitoneum Ultrasound 07/16/20 20:10 IMPRESSION: 1. Urinary retention. The prevoid bladder volume was 482 and the patient was unable to void for postvoid residuals. 2. The bladder wall is markedly trabeculated with scattered diverticula. 3. Moderate hydronephrosis bilaterally. Trace right perinephric free fluid. Medications Medications Current Medications Generic Name Dose Route Start Last Admin Trade Name Freq PRN Reason Stop Dose Admin Acetaminophen 650 mg 07/12/20 19:08 07/17/20 12:13 Acetaminophen 325 Mg Tablet PO 650 mg Q6H PRN Administration Headache/Pain Mild Scale (1-3) Al Hydroxide/Mg Hydroxide 30 ml 07/12/20 19:08 07/13/20 22:11 Magnesium Hydrox/Alum Hydrox 30 Ml Oral.Susp PO 30 ml Q6H PRN Administration Heartburn/Nausea Clozapine 100 mg 07/21/20 21:00 07/23/20 21:52 Clozapine 100 Mg Tablet PO 100 mg BEDTIME CASSIDY Administration Clozapine 75 mg 07/23/20 09:00 07/24/20 08:43 Clozapine 25 Mg Tablet PO 75 mg DAILY CASSIDY Administration Doxazosin Mesylate 4 mg 07/18/20 21:00 07/23/20 21:51 Doxazosin Mesylate 2 Mg Tablet PO 4 mg BEDTIME CASSIDY Administration Protocol Finasteride 5 mg 07/19/20 09:00 07/24/20 08:44 Finasteride 5 Mg Tablet PO 5 mg DAILY CASSIDY Administration Fluphenazine HCl 5 mg 07/20/20 21:00 07/24/20 08:43 Fluphenazine Hcl 5 Mg Tablet PO 5 mg BID CASSIDY Administration Magnesium Hydroxide 30 ml 07/12/20 19:08 Milk Of Magnesia 30 Ml Oral.Susp PO DAILY PRN Constipation Multi-Ingred Cream/Lotion/Oil/Oint 1 appl 07/15/20 21:00 07/24/20 08:44 Mineral Oil/Petrolatum,White 106 Gm Tube TOPICAL 1 appl BID CASSIDY Administration Pharmacy Consult 1 each 07/07/20 17:02 Consult Rx Perform Med Rec MISCELLANE ONCE PRN Consult order Polyethylene Glycol 17 gm 07/16/20 16:50 07/24/20 08:44 Polyethylene Glycol 3350 17 Gm Powd.Pack PO 17 gm DAILY CASSIDY Administration Allergies Allergies Allergy/AdvReac Type Severity Reaction Status Date / Time aspirin [Aspirin] Allergy Severe SWELLING Verified 07/07/20 19:44 Assessment & Plan Assessment & Plan (1) Urinary retention: Status: Acute Code(s): R33.9 - Retention of urine, unspecified (2) Schizophrenia: Qualifiers: Schizophrenia type: paranoid schizophrenia Qualified Code(s): F20.0 - Paranoid schizophrenia Status: Acute Code(s): F20.9 - Schizophrenia, unspecified Assessment and Plan: 1. Continue Clozaril to 100mg po daily and 100mg po qhs. Continue prolixin 5mg po BID, as we continue to titrate clozaril. Urinary retention- trial of voiding without catheter Greater than 50% of the session was spent on counseling and/or coordination of care Reason for contiued inpatient stay Substantial Risk for: inability to function
[2020-07-24 15:27] LABS: Ferritin 172 ng/mL (20-250)
[2020-07-24 18:00] VITALS: BP 111/66; PULSE 80; TEMP 36.6
[2020-07-24 20:24] VITALS: BP 111/66; PULSE 80
[2020-07-24] MEDS: Doxazosin Mesylate 2 MG TABLET 4 MG PO (20:24)
[2020-07-24] MEDS: cloZAPine 100 MG TABLET PO (20:24)
[2020-07-25 06:00] VITALS: BP 141/82; PULSE 76; RESP 16; TEMP 36.6; O2SAT 97
[2020-07-25] MEDS: fluPHENAZine HCl 5 MG TABLET PO ×2 (08:50→20:14)
[2020-07-25] MEDS: cloZAPine 25 MG TABLET 75 MG PO (08:50)
[2020-07-25] MEDS: Finasteride 5 MG TABLET PO (08:51)
[2020-07-25] MEDS: polyethylene glycoL 3350 17 GM POWD.PACK PO (08:51)
[2020-07-25 09:13] LABS: Alanine Aminotransferase 45 U/L (0-40); Albumin Level 3.5 g/dL (3.5-5.0); Alkaline Phosphatase 69 U/L (39-117); Anion Gap 10 (12-20); Aspartate Amino Transferase 19 U/L (5-37); Bilirubin Total 0.6 mg/dL (0.0-1.0); Blood Urea Nitrogen 26 mg/dL (9-16); Calcium 8.4 mg/dL (8.4-10.2); Carbon Dioxide 28 mmol/L (22-29); Chloride 107 mmol/L (96-108); Estimated Glomerular Filt Rate 52; Glucose Random 107 mg/dL (60-115); Potassium 4.3 mmol/L (3.3-5.1); Sodium 141 mmol/L (135-145); Total Protein 5.1 g/dL (6.5-8.0)
[2020-07-25] MEDS: Mineral Oil/Petrolatum,White 106 GM Tube 1 APPL TOPICAL ×2 (11:05→20:22)
[2020-07-25 11:31] VITALS: BP 141/82; PULSE 76; O2SAT 97
[2020-07-25 18:00] VITALS: BP 139/73; PULSE 76; TEMP 36.4
--- NOTE | 2020-07-25 18:18 | HO.PSYCHPN ---
Subjective Subjective Date of Service: 07/25/20 Reason For Visit: acute psychosis Interim History: Pt has been more visible today. He had PT and no recommendation for acute rehab made. He appears with improved hygiene and is casually groomed. He reports voice is telling him nice things which he states this male voice sometimes talks about politics and other things that are happening in the world. He reports most distressing is when voice is telling him that he is going to be tortured. He denies SI/HI. He is sleeping/eating well. Per urologist, Dr. Quan- indwelling catheter will be removed, he had trial of voiding on his own with PVR less than 300cc. Review of Systems Review of Systems patient reporting no complaints Yes all other systems are reviewed and are negative Constitutional: Denies chills and Denies fever(s) Cardiovascular: Reports no additional cardiovascular complaints, Denies chest pain, Denies syncope and Denies dyspnea Respiratory: Denies chest congestion, Denies cough and Denies dyspnea Gastrointestinal: Denies abdominal pain and Denies heartburn Genitourinary: Reports as per HPI, Denies change in libido and Reports difficulty urinating (retention) Denies syncope Psychiatric: Denies change in libido Endocrine: Denies change in libido Mental Status Exam Mental Status Exam Narrative: Patient Appearance:wearing hospital gown, fair hygiene, in NAD Patient Orientation: alert, oriented to date/place/month/year Patient Behavior: Appropriate and Cooperative Mood Description: Anxious Affect Description: Appropriate and Anxious Speech Pattern: Clear, some slight delayed response rate, otherwise regular rhythm, soft volume, spontaneous Hallucinations: Auditory, no CAH Delusions: Not Present Thought Process: linear Thought Content: AH, otherwise future oriented Judgement/insight: Poor x 2 SI: denies HI: denies No signs of aggression towards self or others Patient Appearance: Appropriate Patient Orientation: Person, Place and Situation Level of Consciousness: Awake, Appropriate and Alert Patient Behavior: Appropriate, Dependent, Cooperative and Passive Mood Description: Apathetic, Withdrawn and Anxious Affect Description: Apathetic and Anxious Ability to Follow Directions: Good Speech Pattern: Clear, Soft-Spoken and Mumbled Diagnostics Vital Signs (24Hr): Vital Signs - 24 hr 07/24/20 20:24 07/25/20 06:00 07/25/20 11:31 Temperature 97.8 F Pulse Rate 80 76 76 Respiratory Rate 16 Blood Pressure 111/66 141/82 H 141/82 H Pulse Oximetry 97 97 Body Mass Index 25.9 Labs Results: 07/21/20 07:47 07/25/20 08:18 Labs: Laboratory Results - last 48 hr 07/24/20 07/24/20 07/25/20 14:23 14:23 08:18 Sodium 141 Potassium 4.3 Chloride 107 Carbon Dioxide 28 Anion Gap 10 L BUN 26 H Creatinine 1.33 Estim Creat Clear Calc 45.0 Estimated GFR 52 Random Glucose 107 D Calcium 8.4 Iron 69 TIBC 229 % Saturation 30 Unsat Iron Binding 160 Ferritin 172 Total Bilirubin 0.6 AST 19 ALT 45 H Alkaline Phosphatase 69 Total Protein 5.1 L Albumin 3.5 Imaging Radiology Impressions: ITS Impressions Chest X-Ray 07/07/20 13:48 IMPRESSION: Unremarkable chest examination. Head CT 07/07/20 13:48 IMPRESSION: Unremarkable exam. Retroperitoneum Ultrasound 07/16/20 20:10 IMPRESSION: 1. Urinary retention. The prevoid bladder volume was 482 and the patient was unable to void for postvoid residuals. 2. The bladder wall is markedly trabeculated with scattered diverticula. 3. Moderate hydronephrosis bilaterally. Trace right perinephric free fluid. Medications Medications Current Medications Generic Name Dose Route Start Last Admin Trade Name Freq PRN Reason Stop Dose Admin Acetaminophen 650 mg 07/12/20 19:08 07/17/20 12:13 Acetaminophen 325 Mg Tablet PO 650 mg Q6H PRN Administration Headache/Pain Mild Scale (1-3) Al Hydroxide/Mg Hydroxide 30 ml 07/12/20 19:08 07/13/20 22:11 Magnesium Hydrox/Alum Hydrox 30 Ml Oral.Susp PO 30 ml Q6H PRN Administration Heartburn/Nausea Clozapine 100 mg 07/21/20 21:00 07/24/20 20:24 Clozapine 100 Mg Tablet PO 100 mg BEDTIME CASSIDY Administration Clozapine 75 mg 07/23/20 09:00 07/25/20 08:50 Clozapine 25 Mg Tablet PO 75 mg DAILY CASSIDY Administration Doxazosin Mesylate 4 mg 07/18/20 21:00 07/24/20 20:24 Doxazosin Mesylate 2 Mg Tablet PO 4 mg BEDTIME CASSIDY Administration Protocol Finasteride 5 mg 07/19/20 09:00 07/25/20 08:51 Finasteride 5 Mg Tablet PO 5 mg DAILY CASSIDY Administration Fluphenazine HCl 5 mg 07/20/20 21:00 07/25/20 08:50 Fluphenazine Hcl 5 Mg Tablet PO 5 mg BID CASSIDY Administration Magnesium Hydroxide 30 ml 07/12/20 19:08 Milk Of Magnesia 30 Ml Oral.Susp PO DAILY PRN Constipation Multi-Ingred Cream/Lotion/Oil/Oint 1 appl 07/15/20 21:00 07/25/20 11:05 Mineral Oil/Petrolatum,White 106 Gm Tube TOPICAL 1 appl BID CASSIDY Administration Pharmacy Consult 1 each 07/07/20 17:02 Consult Rx Perform Med Rec MISCELLANE ONCE PRN Consult order Polyethylene Glycol 17 gm 07/16/20 16:50 07/25/20 08:51 Polyethylene Glycol 3350 17 Gm Powd.Pack PO 17 gm DAILY CASSIDY Administration Allergies Allergies Allergy/AdvReac Type Severity Reaction Status Date / Time aspirin [Aspirin] Allergy Severe SWELLING Verified 07/07/20 19:44 Assessment & Plan Assessment & Plan (1) Urinary retention: Status: Acute Code(s): R33.9 - Retention of urine, unspecified (2) Schizophrenia: Qualifiers: Schizophrenia type: paranoid schizophrenia Qualified Code(s): F20.0 - Paranoid schizophrenia Status: Acute Code(s): F20.9 - Schizophrenia, unspecified Assessment and Plan: 1. Continue Clozaril to 100mg po daily and 100mg po qhs. Continue prolixin 5mg po BID, as we continue to titrate clozaril. Urinary retention- trial of voiding without catheter Greater than 50% of the session was spent on counseling and/or coordination of care Reason for contiued inpatient stay Substantial Risk for: inability to function
[2020-07-25 20:13] VITALS: BP 139/73; PULSE 76
[2020-07-25] MEDS: Doxazosin Mesylate 2 MG TABLET 4 MG PO (20:13)
[2020-07-25] MEDS: cloZAPine 100 MG TABLET PO (20:13)
[2020-07-26 06:00] VITALS: BP 134/63; PULSE 60; TEMP 36.8; O2SAT 99
--- NOTE | 2020-07-26 08:00 | HO.PSYCHPN ---
Subjective Subjective Date of Service: 07/26/20 Reason For Visit: acute psychosis Interim History: 07/26: States is voiding well. PVR in 300s. Will monitor. Odd affect. Made inappropriate comments Send some chicks in . CAH+ 07/25:Pt has been more visible today. He had PT and no recommendation for acute rehab made. He appears with improved hygiene and is casually groomed. He reports voice is telling him nice things which he states this male voice sometimes talks about politics and other things that are happening in the world. He reports most distressing is when voice is telling him that he is going to be tortured. He denies SI/HI. He is sleeping/eating well. Per urologist, Dr. Quan- indwelling catheter will be removed, he had trial of voiding on his own with PVR less than 300cc. Review of Systems Review of Systems patient reporting no complaints Yes all other systems are reviewed and are negative Constitutional: Denies chills and Denies fever(s) Cardiovascular: Reports no additional cardiovascular complaints, Denies chest pain, Denies syncope and Denies dyspnea Respiratory: Denies chest congestion, Denies cough and Denies dyspnea Gastrointestinal: Denies abdominal pain and Denies heartburn Genitourinary: Reports as per HPI, Denies change in libido and Reports difficulty urinating (retention) Denies syncope Psychiatric: Denies change in libido Endocrine: Denies change in libido Mental Status Exam Mental Status Exam Narrative: Patient Appearance:wearing hospital gown, fair hygiene, in NAD Patient Orientation: alert, oriented to date/place/month/year Patient Behavior: Appropriate and Cooperative Mood Description: Anxious Affect Description: Appropriate and Anxious Speech Pattern: Clear, some slight delayed response rate, otherwise regular rhythm, soft volume, spontaneous Hallucinations: Auditory, no CAH Delusions: Not Present Thought Process: linear Thought Content: AH, otherwise future oriented Judgement/insight: Poor x 2 SI: denies HI: denies No signs of aggression towards self or others Patient Appearance: Appropriate Patient Orientation: Person, Place and Situation Level of Consciousness: Awake, Appropriate and Alert Patient Behavior: Appropriate, Dependent, Cooperative and Passive Mood Description: Apathetic, Withdrawn and Anxious Affect Description: Apathetic and Anxious Ability to Follow Directions: Good Speech Pattern: Clear, Soft-Spoken and Mumbled Diagnostics Vital Signs (24Hr): Vital Signs - 24 hr 07/25/20 11:31 07/25/20 18:00 07/25/20 20:13 Temperature 97.6 F Pulse Rate 76 76 76 Blood Pressure 141/82 H 139/73 139/73 Pulse Oximetry 97 07/26/20 06:00 Temperature 98.3 F Pulse Rate 60 Blood Pressure 134/63 Pulse Oximetry 99 Body Mass Index 25.9 Labs Results: 07/21/20 07:47 07/25/20 08:18 Labs: Laboratory Results - last 48 hr 07/24/20 07/24/20 07/25/20 14:23 14:23 08:18 Sodium 141 Potassium 4.3 Chloride 107 Carbon Dioxide 28 Anion Gap 10 L BUN 26 H Creatinine 1.33 Estim Creat Clear Calc 45.0 Estimated GFR 52 Random Glucose 107 D Calcium 8.4 Iron 69 TIBC 229 % Saturation 30 Unsat Iron Binding 160 Ferritin 172 Total Bilirubin 0.6 AST 19 ALT 45 H Alkaline Phosphatase 69 Total Protein 5.1 L Albumin 3.5 Imaging Radiology Impressions: ITS Impressions Chest X-Ray 07/07/20 13:48 IMPRESSION: Unremarkable chest examination. Head CT 07/07/20 13:48 IMPRESSION: Unremarkable exam. Retroperitoneum Ultrasound 07/16/20 20:10 IMPRESSION: 1. Urinary retention. The prevoid bladder volume was 482 and the patient was unable to void for postvoid residuals. 2. The bladder wall is markedly trabeculated with scattered diverticula. 3. Moderate hydronephrosis bilaterally. Trace right perinephric free fluid. Medications Medications Current Medications Generic Name Dose Route Start Last Admin Trade Name Freq PRN Reason Stop Dose Admin Acetaminophen 650 mg 07/12/20 19:08 07/17/20 12:13 Acetaminophen 325 Mg Tablet PO 650 mg Q6H PRN Administration Headache/Pain Mild Scale (1-3) Al Hydroxide/Mg Hydroxide 30 ml 07/12/20 19:08 07/13/20 22:11 Magnesium Hydrox/Alum Hydrox 30 Ml Oral.Susp PO 30 ml Q6H PRN Administration Heartburn/Nausea Clozapine 100 mg 07/21/20 21:00 07/25/20 20:13 Clozapine 100 Mg Tablet PO 100 mg BEDTIME CASSIDY Administration Clozapine 75 mg 07/23/20 09:00 07/25/20 08:50 Clozapine 25 Mg Tablet PO 75 mg DAILY CASSIDY Administration Doxazosin Mesylate 4 mg 07/18/20 21:00 07/25/20 20:13 Doxazosin Mesylate 2 Mg Tablet PO 4 mg BEDTIME CASSIDY Administration Protocol Finasteride 5 mg 07/19/20 09:00 07/25/20 08:51 Finasteride 5 Mg Tablet PO 5 mg DAILY CASSIDY Administration Fluphenazine HCl 5 mg 07/20/20 21:00 07/25/20 20:14 Fluphenazine Hcl 5 Mg Tablet PO 5 mg BID CASSIDY Administration Magnesium Hydroxide 30 ml 07/12/20 19:08 Milk Of Magnesia 30 Ml Oral.Susp PO DAILY PRN Constipation Multi-Ingred Cream/Lotion/Oil/Oint 1 appl 07/15/20 21:00 07/25/20 20:22 Mineral Oil/Petrolatum,White 106 Gm Tube TOPICAL 1 appl BID CASSIDY Administration Pharmacy Consult 1 each 07/07/20 17:02 Consult Rx Perform Med Rec MISCELLANE ONCE PRN Consult order Polyethylene Glycol 17 gm 07/16/20 16:50 07/25/20 08:51 Polyethylene Glycol 3350 17 Gm Powd.Pack PO 17 gm DAILY CASSIDY Administration Allergies Allergies Allergy/AdvReac Type Severity Reaction Status Date / Time aspirin [Aspirin] Allergy Severe SWELLING Verified 07/07/20 19:44 Assessment & Plan Assessment & Plan (1) Urinary retention: Status: Acute Code(s): R33.9 - Retention of urine, unspecified (2) Schizophrenia: Qualifiers: Schizophrenia type: paranoid schizophrenia Qualified Code(s): F20.0 - Paranoid schizophrenia Status: Acute Code(s): F20.9 - Schizophrenia, unspecified Assessment and Plan: 1. Continue Clozaril to 100mg po daily and 100mg po qhs. Continue prolixin 5mg po BID, as we continue to titrate clozaril. Urinary retention- trial of voiding without catheter Greater than 50% of the session was spent on counseling and/or coordination of care Reason for contiued inpatient stay Substantial Risk for: med/psych decompensation
[2020-07-26] MEDS: cloZAPine 25 MG TABLET 75 MG PO (09:07)
[2020-07-26] MEDS: fluPHENAZine HCl 5 MG TABLET PO ×2 (09:08→20:32)
[2020-07-26] MEDS: polyethylene glycoL 3350 17 GM POWD.PACK PO (09:08)
[2020-07-26] MEDS: Finasteride 5 MG TABLET PO (09:08)
[2020-07-26] MEDS: Mineral Oil/Petrolatum,White 106 GM Tube 1 APPL TOPICAL ×2 (09:14→20:38)
[2020-07-26 18:00] VITALS: BP 141/74; PULSE 79; TEMP 36.2
[2020-07-26] MEDS: cloZAPine 100 MG TABLET PO (20:32)
[2020-07-26 20:33] VITALS: BP 152/80; PULSE 77
[2020-07-26] MEDS: Doxazosin Mesylate 2 MG TABLET 4 MG PO (20:33)
[2020-07-27 06:25] VITALS: BP 141/75; PULSE 75; RESP 16; TEMP 36.8; O2SAT 99
[2020-07-27] MEDS: cloZAPine 25 MG TABLET 75 MG PO (08:41)
[2020-07-27] MEDS: fluPHENAZine HCl 5 MG TABLET PO ×2 (08:41→20:21)
[2020-07-27] MEDS: Finasteride 5 MG TABLET PO (08:42)
[2020-07-27] MEDS: polyethylene glycoL 3350 17 GM POWD.PACK PO (08:42)
[2020-07-27 09:16] LABS: Alanine Aminotransferase 35 U/L (0-40); Albumin Level 3.9 g/dL (3.5-5.0); Alkaline Phosphatase 80 U/L (39-117); Anion Gap 12 (12-20); Aspartate Amino Transferase 16 U/L (5-37); Bilirubin Total 0.7 mg/dL (0.0-1.0); Blood Urea Nitrogen 26 mg/dL (9-16); Calcium 8.9 mg/dL (8.4-10.2); Carbon Dioxide 27 mmol/L (22-29); Chloride 107 mmol/L (96-108); Creatinine Clr Calc Pharmacy 43.3; Estimated Glomerular Filt Rate 50; Glucose Random 111 mg/dL (60-115); Potassium 4.4 mmol/L (3.3-5.1); Sodium 142 mmol/L (135-145); Total Protein 5.8 g/dL (6.5-8.0)
--- NOTE | 2020-07-27 11:07 | HO.PSYCHPN ---
Subjective Subjective Date of Service: 07/27/20 Reason For Visit: acute psychosis Interim History: 07/27: Patient able to void by self. Although affect. Medication compliance noted. Patient remains on clozapine. Continue treatment plan. 07/26: States is voiding well. PVR in 300s. Will monitor. Odd affect. Made inappropriate comments Send some chicks in . CAH+ 07/25:Pt has been more visible today. He had PT and no recommendation for acute rehab made. He appears with improved hygiene and is casually groomed. He reports voice is telling him nice things which he states this male voice sometimes talks about politics and other things that are happening in the world. He reports most distressing is when voice is telling him that he is going to be tortured. He denies SI/HI. He is sleeping/eating well. Per urologist, Dr. Quan- indwelling catheter will be removed, he had trial of voiding on his own with PVR less than 300cc. Review of Systems Review of Systems patient reporting no complaints Yes all other systems are reviewed and are negative Constitutional: Denies chills and Denies fever(s) Cardiovascular: Reports no additional cardiovascular complaints, Denies chest pain, Denies syncope and Denies dyspnea Respiratory: Denies chest congestion, Denies cough and Denies dyspnea Gastrointestinal: Denies abdominal pain and Denies heartburn Genitourinary: Reports as per HPI, Denies change in libido and Reports difficulty urinating (retention) Denies syncope Psychiatric: Denies change in libido Endocrine: Denies change in libido Mental Status Exam Mental Status Exam Narrative: Patient Appearance:wearing hospital gown, fair hygiene, in NAD Patient Orientation: alert, oriented to date/place/month/year Patient Behavior: Appropriate and Cooperative Mood Description: Anxious Affect Description: Appropriate and Anxious Speech Pattern: Clear, some slight delayed response rate, otherwise regular rhythm, soft volume, spontaneous Hallucinations: Auditory, no CAH Delusions: Not Present Thought Process: linear Thought Content: AH, otherwise future oriented Judgement/insight: Poor x 2 SI: denies HI: denies No signs of aggression towards self or others Patient Appearance: Appropriate Patient Orientation: Person, Place and Situation Level of Consciousness: Awake, Appropriate and Alert Patient Behavior: Appropriate, Dependent, Cooperative and Passive Mood Description: Apathetic, Withdrawn and Anxious Affect Description: Apathetic and Anxious Ability to Follow Directions: Good Speech Pattern: Clear, Soft-Spoken and Mumbled Diagnostics Vital Signs (24Hr): Vital Signs - 24 hr 07/26/20 18:00 07/26/20 20:33 07/27/20 06:25 Temperature 97.2 F 98.3 F Pulse Rate 79 77 75 Respiratory Rate 16 Blood Pressure 141/74 H 152/80 H 141/75 H Pulse Oximetry 99 Body Mass Index 25.9 Labs Results: 07/21/20 07:47 07/27/20 08:32 Labs: Laboratory Results - last 48 hr 07/27/20 08:32 Sodium 142 Potassium 4.4 Chloride 107 Carbon Dioxide 27 Anion Gap 12 BUN 26 H Creatinine 1.38 Estim Creat Clear Calc 43.3 Estimated GFR 50 Random Glucose 111 Calcium 8.9 Total Bilirubin 0.7 AST 16 ALT 35 Alkaline Phosphatase 80 Total Protein 5.8 L Albumin 3.9 Imaging Radiology Impressions: ITS Impressions Chest X-Ray 07/07/20 13:48 IMPRESSION: Unremarkable chest examination. Head CT 07/07/20 13:48 IMPRESSION: Unremarkable exam. Retroperitoneum Ultrasound 07/16/20 20:10 IMPRESSION: 1. Urinary retention. The prevoid bladder volume was 482 and the patient was unable to void for postvoid residuals. 2. The bladder wall is markedly trabeculated with scattered diverticula. 3. Moderate hydronephrosis bilaterally. Trace right perinephric free fluid. Medications Medications Current Medications Generic Name Dose Route Start Last Admin Trade Name Freq PRN Reason Stop Dose Admin Acetaminophen 650 mg 07/12/20 19:08 07/17/20 12:13 Acetaminophen 325 Mg Tablet PO 650 mg Q6H PRN Administration Headache/Pain Mild Scale (1-3) Al Hydroxide/Mg Hydroxide 30 ml 07/12/20 19:08 07/13/20 22:11 Magnesium Hydrox/Alum Hydrox 30 Ml Oral.Susp PO 30 ml Q6H PRN Administration Heartburn/Nausea Clozapine 100 mg 07/21/20 21:00 07/26/20 20:32 Clozapine 100 Mg Tablet PO 100 mg BEDTIME CASSIDY Administration Clozapine 75 mg 07/23/20 09:00 07/27/20 08:41 Clozapine 25 Mg Tablet PO 75 mg DAILY CASSIDY Administration Doxazosin Mesylate 4 mg 07/18/20 21:00 07/26/20 20:33 Doxazosin Mesylate 2 Mg Tablet PO 4 mg BEDTIME CASSIDY Administration Protocol Finasteride 5 mg 07/19/20 09:00 07/27/20 08:42 Finasteride 5 Mg Tablet PO 5 mg DAILY CASSIDY Administration Fluphenazine HCl 5 mg 07/20/20 21:00 07/27/20 08:41 Fluphenazine Hcl 5 Mg Tablet PO 5 mg BID CASSIDY Administration Magnesium Hydroxide 30 ml 07/12/20 19:08 Milk Of Magnesia 30 Ml Oral.Susp PO DAILY PRN Constipation Multi-Ingred Cream/Lotion/Oil/Oint 1 appl 07/15/20 21:00 07/26/20 20:38 Mineral Oil/Petrolatum,White 106 Gm Tube TOPICAL 1 appl BID CASSIDY Administration Pharmacy Consult 1 each 07/07/20 17:02 Consult Rx Perform Med Rec MISCELLANE ONCE PRN Consult order Polyethylene Glycol 17 gm 07/16/20 16:50 07/27/20 08:42 Polyethylene Glycol 3350 17 Gm Powd.Pack PO 17 gm DAILY CASSIDY Administration Allergies Allergies Allergy/AdvReac Type Severity Reaction Status Date / Time aspirin [Aspirin] Allergy Severe SWELLING Verified 07/07/20 19:44 Assessment & Plan Assessment & Plan (1) Urinary retention: Status: Acute Code(s): R33.9 - Retention of urine, unspecified (2) Schizophrenia: Qualifiers: Schizophrenia type: paranoid schizophrenia Qualified Code(s): F20.0 - Paranoid schizophrenia Status: Acute Code(s): F20.9 - Schizophrenia, unspecified Assessment and Plan: 1. Continue Clozaril to 100mg po daily and 100mg po qhs. Continue prolixin 5mg po BID, as we continue to titrate clozaril. Urinary retention- trial of voiding without catheter Greater than 50% of the session was spent on counseling and/or coordination of care Reason for contiued inpatient stay Substantial Risk for: inability to function and rapid decompensation
[2020-07-27] MEDS: Mineral Oil/Petrolatum,White 106 GM Tube 1 APPL TOPICAL ×2 (13:28→20:22)
[2020-07-27 18:00] VITALS: BP 142/78; PULSE 83; TEMP 36.3
[2020-07-27 20:20] VITALS: BP 142/78; PULSE 83
[2020-07-27] MEDS: Doxazosin Mesylate 2 MG TABLET 4 MG PO (20:20)
[2020-07-27] MEDS: cloZAPine 100 MG TABLET PO (20:20)
[2020-07-28 05:50] VITALS: BP 146/78; PULSE 78; RESP 18; TEMP 36.6; O2SAT 96
[2020-07-28 07:55] LABS: MANUAL DIFF FLAG NO
[2020-07-28 08:35] LABS: Basophils Percent Auto 0.2 % (0-2); Hematocrit 31.5 % (42-52); Imm Gran Abs Auto 0.03 X10*3/uL (0.00-0.03); Imm Gran Pct Auto 0.6 % (0.0-0.4); Lymphocytes Absolute Auto 0.9 X10*3/uL (1.2-4.9); Lymphocytes Percent Auto 16.5 % (20-40); Mean Corpuscular HGB Conc 34.9 g/dl (31.0-36.0); Mean Corpuscular Hemoglobin 31.7 pg (27.0-33.0); Mean Corpuscular Volume 90.8 fL (80-98); Mean Platelet Volume 9.3 fL (9.4-12.4); Monocytes Absolute Auto 0.4 X10*3/uL (0.1-1.2); Monocytes Percent Auto 7.8 % (2-11); Neutrophils Absolute Auto 3.9 X10*3/uL (2.0-8.3); Neutrophils Percent Auto 74.9 % (45-73); Platelet Count 124 X10*3/uL (160-400); Red Blood Count 3.47 X10*6/uL (4.60-5.80); White Blood Count 5.2 X10*3/uL (4.8-10.8)
[2020-07-28] MEDS: cloZAPine 25 MG TABLET 75 MG PO (08:59)
[2020-07-28] MEDS: fluPHENAZine HCl 5 MG TABLET PO ×2 (08:59→21:30)
[2020-07-28] MEDS: Finasteride 5 MG TABLET PO (08:59)
[2020-07-28] MEDS: polyethylene glycoL 3350 17 GM POWD.PACK PO (09:00)
[2020-07-28] MEDS: Mineral Oil/Petrolatum,White 106 GM Tube 1 APPL TOPICAL (10:05)
--- NOTE | 2020-07-28 17:35 | HO.PSYCHPN ---
Subjective Subjective Date of Service: 07/28/20 Reason For Visit: acute psychosis Subjective Notes: Conditional Voluntary Interim History: Pt reports he continues to hear voice, but voice is nicer. He reports sleeping and eating well. He had episode of incontinence, which raises question about overflow due to retention. Bladder scan ordered. Pt denies SI/HI. He has been mostly in bed. No behavioral concerns. Medication Compliance: Yes Side effects from medications: Yes Attending Groups: No Review of Systems Review of Systems patient reporting no complaints Yes all other systems are reviewed and are negative Constitutional: Denies chills and Denies fever(s) Cardiovascular: Reports no additional cardiovascular complaints, Denies chest pain, Denies syncope and Denies dyspnea Respiratory: Denies chest congestion, Denies cough and Denies dyspnea Gastrointestinal: Denies abdominal pain and Denies heartburn Genitourinary: Reports as per HPI, Denies change in libido and Reports difficulty urinating (retention) Denies syncope Psychiatric: Denies change in libido Endocrine: Denies change in libido Mental Status Exam Mental Status Exam Narrative: Patient Appearance:wearing hospital gown, fair hygiene, in NAD Patient Orientation: alert, oriented to date/place/month/year Patient Behavior: Appropriate and Cooperative Mood Description: Anxious Affect Description: Appropriate and Anxious Speech Pattern: Clear, some slight delayed response rate, otherwise regular rhythm, soft volume, spontaneous Hallucinations: Auditory, no CAH Delusions: Not Present Thought Process: linear Thought Content: AH, otherwise future oriented Judgement/insight: Poor x 2 SI: denies HI: denies No signs of aggression towards self or others Diagnostics Vital Signs (24Hr): Vital Signs - 24 hr 07/27/20 18:00 07/27/20 20:20 07/28/20 05:50 Temperature 97.3 F 97.8 F Pulse Rate 83 83 78 Respiratory Rate 18 Blood Pressure 142/78 H 142/78 H 146/78 H Pulse Oximetry 96 Body Mass Index 25.9 Labs Results: 07/28/20 07:49 07/27/20 08:32 Labs: Laboratory Results - last 48 hr 07/27/20 07/28/20 08:32 07:49 WBC 5.2 RBC 3.47 L Hgb 11.0 L Hct 31.5 L MCV 90.8 MCH 31.7 MCHC 34.9 RDW 14.0 Plt Count 124 L D MPV 9.3 L Immature Gran % (Auto) 0.6 H Neut % (Auto) 74.9 H Lymph % (Auto) 16.5 L [place] % (Auto) 7.8 Eos % (Auto) 0.0 Baso % (Auto) 0.2 Lymph # (Auto) 0.9 L [place] # (Auto) 0.4 Eos # (Auto) 0.0 Baso # (Auto) 0.0 Abs Immat Gran (auto) 0.03 Absolute Neuts (auto) 3.9 Absolute Nucleated RBC 0.000 Nucleated RBC % (auto) 0.0 Sodium 142 Potassium 4.4 Chloride 107 Carbon Dioxide 27 Anion Gap 12 BUN 26 H Creatinine 1.38 Estim Creat Clear Calc 43.3 Estimated GFR 50 Random Glucose 111 Calcium 8.9 Total Bilirubin 0.7 AST 16 ALT 35 Alkaline Phosphatase 80 Total Protein 5.8 L Albumin 3.9 Imaging Radiology Impressions: ITS Impressions Chest X-Ray 07/07/20 13:48 IMPRESSION: Unremarkable chest examination. Head CT 07/07/20 13:48 IMPRESSION: Unremarkable exam. Retroperitoneum Ultrasound 07/16/20 20:10 IMPRESSION: 1. Urinary retention. The prevoid bladder volume was 482 and the patient was unable to void for postvoid residuals. 2. The bladder wall is markedly trabeculated with scattered diverticula. 3. Moderate hydronephrosis bilaterally. Trace right perinephric free fluid. Medications Medications Current Medications Generic Name Dose Route Start Last Admin Trade Name Freq PRN Reason Stop Dose Admin Acetaminophen 650 mg 07/12/20 19:08 07/17/20 12:13 Acetaminophen 325 Mg Tablet PO 650 mg Q6H PRN Administration Headache/Pain Mild Scale (1-3) Al Hydroxide/Mg Hydroxide 30 ml 07/12/20 19:08 07/13/20 22:11 Magnesium Hydrox/Alum Hydrox 30 Ml Oral.Susp PO 30 ml Q6H PRN Administration Heartburn/Nausea Clozapine 100 mg 07/21/20 21:00 07/27/20 20:20 Clozapine 100 Mg Tablet PO 100 mg BEDTIME CASSIDY Administration Clozapine 75 mg 07/23/20 09:00 07/28/20 08:59 Clozapine 25 Mg Tablet PO 75 mg DAILY CASSIDY Administration Doxazosin Mesylate 4 mg 07/18/20 21:00 07/27/20 20:20 Doxazosin Mesylate 2 Mg Tablet PO 4 mg BEDTIME CASSIDY Administration Protocol Finasteride 5 mg 07/19/20 09:00 07/28/20 08:59 Finasteride 5 Mg Tablet PO 5 mg DAILY CASSIDY Administration Fluphenazine HCl 5 mg 07/20/20 21:00 07/28/20 08:59 Fluphenazine Hcl 5 Mg Tablet PO 5 mg BID CASSIDY Administration Magnesium Hydroxide 30 ml 07/12/20 19:08 Milk Of Magnesia 30 Ml Oral.Susp PO DAILY PRN Constipation Multi-Ingred Cream/Lotion/Oil/Oint 1 appl 07/15/20 21:00 07/28/20 10:05 Mineral Oil/Petrolatum,White 106 Gm Tube TOPICAL 1 appl BID CASSIDY Administration Pharmacy Consult 1 each 07/07/20 17:02 Consult Rx Perform Med Rec MISCELLANE ONCE PRN Consult order Polyethylene Glycol 17 gm 07/16/20 16:50 07/28/20 09:00 Polyethylene Glycol 3350 17 Gm Powd.Pack PO 17 gm DAILY CASSIDY Administration Allergies Allergies Allergy/AdvReac Type Severity Reaction Status Date / Time aspirin [Aspirin] Allergy Severe SWELLING Verified 07/07/20 19:44 Assessment & Plan Assessment & Plan (1) Urinary retention: Status: Acute Code(s): R33.9 - Retention of urine, unspecified (2) Schizophrenia: Qualifiers: Schizophrenia type: paranoid schizophrenia Qualified Code(s): F20.0 - Paranoid schizophrenia Status: Acute Code(s): F20.9 - Schizophrenia, unspecified Assessment and Plan: 1. Continue Clozaril to 100mg po daily and 100mg po qhs. Continue prolixin 5mg po BID, as we continue to titrate clozaril. Urinary retention- trial of voiding without catheter Greater than 50% of the session was spent on counseling and/or coordination of care Reason for contiued inpatient stay Substantial Risk for: inability to function
[2020-07-28 18:00] VITALS: BP 174/80; PULSE 86; TEMP 36.1
[2020-07-28 21:30] VITALS: BP 174/80; PULSE 86
[2020-07-28] MEDS: Doxazosin Mesylate 2 MG TABLET 4 MG PO (21:30)
[2020-07-28] MEDS: cloZAPine 100 MG TABLET PO (21:30)
[2020-07-28 23:06] VITALS: BP 143/66; PULSE 86
--- NOTE | 2020-07-28 23:35 | PC.NURSE ---
Pt post-void was at 868 ml when bladder scanned at 2044. Denied any pain or discomfort, I felt like I went all the way but I'll keep trying. About 25 minutes later post void was at 634 Dr. Del Castillo was notified and ordered a straight cath. Nursing outbound supervisor notified as well. Pt explained that he did not want us to try to put in the straight cath and he would continue to keep trying to void because it is uncomfortable. Notified him that we would have to keep monitoring. Last post void at 2234 was 544 ml.
[2020-07-29 06:30] VITALS: BP 141/70; PULSE 77; RESP 16; TEMP 36.5; O2SAT 97
--- NOTE | 2020-07-29 06:53 | PC.NURSE ---
Addendum entered by Jeanne Scott RN 07/30/20 03:16: patient was guided to take short walks on the unit during the day. Diaper was changed, barrier cream was applied to prevent any potential skin break down. Patient denied pain or discomfort feeling before and after bladder scans Original Note: Bladder scan x4 during 11-7 shift. Patient was able to void before and after the scan. Patient void for the first time for the first scan Post void was 703ml. Patient was instructed to void again after. Post second void bladder scan was 516 mg at around 0345. Patient post void third scan was 565 mg at around 0620. Patient was instructed to void again with post void bladder scan at 0630 was 516mg. Patient refused to straight cath x2 when staff talked to patient. Patient stated that he was able to void and will try again later on during the day. Patient was guided to talk a short wall on the unit during the day which will probably will help patient void more often and easier to emply the bladder. Continue to monitor for any status change
[2020-07-29] MEDS: Finasteride 5 MG TABLET PO (08:21)
[2020-07-29] MEDS: cloZAPine 25 MG TABLET 75 MG PO (08:21)
[2020-07-29] MEDS: fluPHENAZine HCl 5 MG TABLET PO ×2 (08:21→21:15)
[2020-07-29] MEDS: polyethylene glycoL 3350 17 GM POWD.PACK PO (09:31)
[2020-07-29] MEDS: Acetaminophen 325 MG TABLET 650 MG PO (12:41)
[2020-07-29] MEDS: LORazepam 1 MG TABLET PO (13:04)
[2020-07-29 16:16] LABS: Alanine Aminotransferase 26 U/L (0-40); Albumin Level 3.5 g/dL (3.5-5.0); Alkaline Phosphatase 72 U/L (39-117); Anion Gap 11 (12-20); Aspartate Amino Transferase 14 U/L (5-37); Bilirubin Total 0.6 mg/dL (0.0-1.0); Blood Urea Nitrogen 26 mg/dL (9-16); Calcium 8.3 mg/dL (8.4-10.2); Carbon Dioxide 29 mmol/L (22-29); Chloride 108 mmol/L (96-108); Creatinine Clr Calc Pharmacy 42.7; Estimated Glomerular Filt Rate 49; Glucose Random 109 mg/dL (60-115); Potassium 4.3 mmol/L (3.3-5.1); Sodium 144 mmol/L (135-145); Total Protein 5.2 g/dL (6.5-8.0)
--- NOTE | 2020-07-29 16:49 | P.PNPSI_ITS ---
Subjective Subjective Date of Service: 07/29/20 Reason For Visit: acute psychosis Interim History: Pt continues to report that he continues to hear a male voice, but voice is nicer. He is worried about voice once again telling him that he will be tortured for the rest of his life. He reports sleeping and eating well. Pt denies SI/HI. He has been mostly in bed. No behavioral concerns. Pt retaining urine, needs indwelling catheter for one month per Dr. Quan- urologist. Review of Systems Review of Systems patient reporting no complaints Yes all other systems are reviewed and are negative Constitutional: Denies chills and Denies fever(s) Cardiovascular: Reports no additional cardiovascular complaints, Denies chest pain, Denies syncope and Denies dyspnea Respiratory: Denies chest congestion, Denies cough and Denies dyspnea Gastrointestinal: Denies abdominal pain and Denies heartburn Genitourinary: Reports as per HPI, Denies change in libido and Reports difficulty urinating (retention) Denies syncope Psychiatric: Denies change in libido Endocrine: Denies change in libido Mental Status Exam Mental Status Exam Narrative: Patient Appearance:wearing hospital gown, fair hygiene, in NAD Patient Orientation: alert, oriented to date/place/month/year Patient Behavior: Appropriate and Cooperative Mood Description: Anxious Affect Description: Appropriate and Anxious Speech Pattern: Clear, some slight delayed response rate, otherwise regular rhythm, soft volume, spontaneous Hallucinations: Auditory, no CAH Delusions: Not Present Thought Process: linear Thought Content: AH, otherwise future oriented Judgement/insight: Poor x 2 SI: denies HI: denies No signs of aggression towards self or others Patient Appearance: Appropriate Patient Orientation: Person, Place and Situation Level of Consciousness: Awake, Appropriate and Alert Patient Behavior: Appropriate, Dependent, Cooperative and Passive Mood Description: Apathetic, Withdrawn and Anxious Affect Description: Apathetic and Anxious Ability to Follow Directions: Good Speech Pattern: Clear, Soft-Spoken and Mumbled Diagnostics Vital Signs (24Hr): Vital Signs - 24 hr 07/28/20 18:00 07/28/20 21:30 07/28/20 23:06 Temperature 96.9 F Pulse Rate 86 86 86 Respiratory Rate Blood Pressure 174/80 H 174/80 H 143/66 H Pulse Oximetry 07/29/20 06:30 Temperature 97.7 F Pulse Rate 77 Respiratory Rate 16 Blood Pressure 141/70 H Pulse Oximetry 97 Body Mass Index 25.9 Labs Results: 07/28/20 07:49 07/29/20 15:06 Labs: Laboratory Results - last 48 hr 07/28/20 07/29/20 07:49 15:06 WBC 5.2 RBC 3.47 L Hgb 11.0 L Hct 31.5 L MCV 90.8 MCH 31.7 MCHC 34.9 RDW 14.0 Plt Count 124 L D MPV 9.3 L Immature Gran % (Auto) 0.6 H Neut % (Auto) 74.9 H Lymph % (Auto) 16.5 L [place] % (Auto) 7.8 Eos % (Auto) 0.0 Baso % (Auto) 0.2 Lymph # (Auto) 0.9 L [place] # (Auto) 0.4 Eos # (Auto) 0.0 Baso # (Auto) 0.0 Abs Immat Gran (auto) 0.03 Absolute Neuts (auto) 3.9 Absolute Nucleated RBC 0.000 Nucleated RBC % (auto) 0.0 Sodium 144 Potassium 4.3 Chloride 108 Carbon Dioxide 29 Anion Gap 11 L BUN 26 H Creatinine 1.40 Estim Creat Clear Calc 42.7 Estimated GFR 49 Random Glucose 109 Calcium 8.3 L D Total Bilirubin 0.6 AST 14 ALT 26 Alkaline Phosphatase 72 Total Protein 5.2 L Albumin 3.5 Imaging Radiology Impressions: ITS Impressions Chest X-Ray 07/07/20 13:48 IMPRESSION: Unremarkable chest examination. Head CT 07/07/20 13:48 IMPRESSION: Unremarkable exam. Retroperitoneum Ultrasound 07/16/20 20:10 IMPRESSION: 1. Urinary retention. The prevoid bladder volume was 482 and the patient was unable to void for postvoid residuals. 2. The bladder wall is markedly trabeculated with scattered diverticula. 3. Moderate hydronephrosis bilaterally. Trace right perinephric free fluid. Medications Medications Current Medications Generic Name Dose Route Start Last Admin Trade Name Freq PRN Reason Stop Dose Admin Acetaminophen 650 mg 07/12/20 19:08 07/29/20 12:41 Acetaminophen 325 Mg Tablet PO 650 mg Q6H PRN Administration Headache/Pain Mild Scale (1-3) Al Hydroxide/Mg Hydroxide 30 ml 07/12/20 19:08 07/13/20 22:11 Magnesium Hydrox/Alum Hydrox 30 Ml Oral.Susp PO 30 ml Q6H PRN Administration Heartburn/Nausea Clozapine 100 mg 07/21/20 21:00 07/28/20 21:30 Clozapine 100 Mg Tablet PO 100 mg BEDTIME CASSIDY Administration Clozapine 75 mg 07/23/20 09:00 07/29/20 08:21 Clozapine 25 Mg Tablet PO 75 mg DAILY CASSIDY Administration Doxazosin Mesylate 4 mg 07/18/20 21:00 07/28/20 21:30 Doxazosin Mesylate 2 Mg Tablet PO 4 mg BEDTIME CASSIDY Administration Protocol Finasteride 5 mg 07/19/20 09:00 07/29/20 08:21 Finasteride 5 Mg Tablet PO 5 mg DAILY CASSIDY Administration Fluphenazine HCl 5 mg 07/20/20 21:00 07/29/20 08:21 Fluphenazine Hcl 5 Mg Tablet PO 5 mg BID CASSIDY Administration Magnesium Hydroxide 30 ml 07/12/20 19:08 Milk Of Magnesia 30 Ml Oral.Susp PO DAILY PRN Constipation Multi-Ingred Cream/Lotion/Oil/Oint 1 appl 07/15/20 21:00 07/29/20 11:16 Mineral Oil/Petrolatum,White 106 Gm Tube TOPICAL Not Given BID [facility] Pharmacy Consult 1 each 07/07/20 17:02 Consult Rx Perform Med Rec MISCELLANE ONCE PRN Consult order Polyethylene Glycol 17 gm 07/16/20 16:50 07/29/20 09:31 Polyethylene Glycol 3350 17 Gm Powd.Pack PO 17 gm DAILY CASSIDY Administration Allergies Allergies Allergy/AdvReac Type Severity Reaction Status Date / Time aspirin [Aspirin] Allergy Severe SWELLING Verified 07/07/20 19:44 Assessment & Plan Assessment & Plan (1) Urinary retention: Status: Acute Code(s): R33.9 - Retention of urine, unspecified (2) Schizophrenia: Qualifiers: Schizophrenia type: paranoid schizophrenia Qualified Code(s): F20.0 - Paranoid schizophrenia Status: Acute Code(s): F20.9 - Schizophrenia, unspecified Assessment and Plan: 1. Continue Clozaril to 100mg po daily and 100mg po qhs. Continue prolixin 5mg po BID, as we continue to titrate clozaril. Urinary retention- trial of voiding without catheter Greater than 50% of the session was spent on counseling and/or coordination of care Reason for contiued inpatient stay Substantial Risk for: inability to function
[2020-07-29 17:09] VITALS: BP 174/85; PULSE 85; TEMP 36.7
[2020-07-29 19:06] VITALS: BP 132/76; PULSE 82
[2020-07-29 21:15] VITALS: BP 162/66; PULSE 80
[2020-07-29] MEDS: Doxazosin Mesylate 2 MG TABLET 4 MG PO (21:15)
[2020-07-29] MEDS: cloZAPine 100 MG TABLET PO (21:15)
[2020-07-29] MEDS: Mineral Oil/Petrolatum,White 106 GM Tube 1 APPL TOPICAL (21:22)
--- NOTE | 2020-07-30 | ECG_ITS ---
Test Reason : CHEST PAIN Blood Pressure : / mmHG Vent. Rate : 081 BPM Atrial Rate : 081 BPM P-R Int : 176 ms QRS Dur : 088 ms QT Int : 358 ms P-R-T Axes : 050 -18 062 degrees QTc Int : 415 ms Normal sinus rhythm Normal ECG When compared with ECG of 07-JUL-2020 15:32, No significant change was found Referred By: Jennifer Prince Electronically Signed By:ORLANDO XIE
[2020-07-30 06:25] VITALS: BP 151/81; PULSE 78; RESP 18; TEMP 36.3; O2SAT 96
[2020-07-30] MEDS: fluPHENAZine HCl 5 MG TABLET PO (08:43)
[2020-07-30] MEDS: cloZAPine 25 MG TABLET 75 MG PO (08:43)
[2020-07-30] MEDS: Finasteride 5 MG TABLET PO (08:43)
[2020-07-30] MEDS: polyethylene glycoL 3350 17 GM POWD.PACK PO (10:57)
[2020-07-30] MEDS: Mineral Oil/Petrolatum,White 106 GM Tube 1 APPL TOPICAL ×2 (10:58→20:56)
--- NOTE | 2020-07-30 15:37 | PC.NURSE ---
Patient refused cummings catheter care first shift.
[2020-07-30 18:00] VITALS: BP 143/75; PULSE 82; TEMP 36.5
--- NOTE | 2020-07-30 19:20 | HO.PSYCHPN ---
Subjective Subjective Date of Service: 07/30/20 Reason For Visit: acute psychosis Interim History: Pt reports he continues to hear a male voice but this voice is nicer he does report that he is worried about voice becoming mean and threatening. He reports feeling anxious at times. He needs encouragement to get out of bed. He reports at times passive SI but denies any plan or intent. He is sleeping well. Review of Systems Review of Systems patient reporting no complaints Yes all other systems are reviewed and are negative Constitutional: Denies chills and Denies fever(s) Cardiovascular: Reports no additional cardiovascular complaints, Denies chest pain, Denies syncope and Denies dyspnea Respiratory: Denies chest congestion, Denies cough and Denies dyspnea Gastrointestinal: Denies abdominal pain and Denies heartburn Genitourinary: Reports as per HPI, Denies change in libido and Reports difficulty urinating (retention) Denies syncope Psychiatric: Denies change in libido Endocrine: Denies change in libido Mental Status Exam Mental Status Exam Narrative: Patient Appearance:wearing hospital gown, fair hygiene, in NAD Patient Orientation: alert, oriented to date/place/month/year Patient Behavior: Appropriate and Cooperative Mood Description: Anxious Affect Description: Appropriate and Anxious Speech Pattern: Clear, some slight delayed response rate, otherwise regular rhythm, soft volume, spontaneous Hallucinations: Auditory, no CAH Delusions: Not Present Thought Process: linear Thought Content: AH, otherwise future oriented Judgement/insight: Poor x 2 SI: denies HI: denies No signs of aggression towards self or others Diagnostics Vital Signs (24Hr): Vital Signs - 24 hr 07/29/20 21:15 07/30/20 06:25 Temperature 97.4 F Pulse Rate 80 78 Respiratory Rate 18 Blood Pressure 162/66 H 151/81 H Pulse Oximetry 96 Body Mass Index 25.9 Labs Results: 07/28/20 07:49 07/29/20 15:06 Labs: Laboratory Results - last 48 hr 07/29/20 15:06 Sodium 144 Potassium 4.3 Chloride 108 Carbon Dioxide 29 Anion Gap 11 L BUN 26 H Creatinine 1.40 Estim Creat Clear Calc 42.7 Estimated GFR 49 Random Glucose 109 Calcium 8.3 L D Total Bilirubin 0.6 AST 14 ALT 26 Alkaline Phosphatase 72 Total Protein 5.2 L Albumin 3.5 Imaging Radiology Impressions: ITS Impressions Chest X-Ray 07/07/20 13:48 IMPRESSION: Unremarkable chest examination. Head CT 07/07/20 13:48 IMPRESSION: Unremarkable exam. Retroperitoneum Ultrasound 07/16/20 20:10 IMPRESSION: 1. Urinary retention. The prevoid bladder volume was 482 and the patient was unable to void for postvoid residuals. 2. The bladder wall is markedly trabeculated with scattered diverticula. 3. Moderate hydronephrosis bilaterally. Trace right perinephric free fluid. Medications Medications Current Medications Generic Name Dose Route Start Last Admin Trade Name Freq PRN Reason Stop Dose Admin Acetaminophen 650 mg 07/12/20 19:08 07/29/20 12:41 Acetaminophen 325 Mg Tablet PO 650 mg Q6H PRN Administration Headache/Pain Mild Scale (1-3) Al Hydroxide/Mg Hydroxide 30 ml 07/12/20 19:08 07/13/20 22:11 Magnesium Hydrox/Alum Hydrox 30 Ml Oral.Susp PO 30 ml Q6H PRN Administration Heartburn/Nausea Clozapine 100 mg 07/21/20 21:00 07/29/20 21:15 Clozapine 100 Mg Tablet PO 100 mg BEDTIME CASSIDY Administration Clozapine 100 mg 07/31/20 09:00 Clozapine 100 Mg Tablet PO DAILY CASSIDY Doxazosin Mesylate 4 mg 07/18/20 21:00 07/29/20 21:15 Doxazosin Mesylate 2 Mg Tablet PO 4 mg BEDTIME CASSIDY Administration Protocol Finasteride 5 mg 07/19/20 09:00 07/30/20 08:43 Finasteride 5 Mg Tablet PO 5 mg DAILY CASSIDY Administration Fluphenazine HCl 10 mg 07/30/20 21:00 Fluphenazine Hcl 2.5 Mg/5 Ml Elixir PO BEDTIME CASSIDY Magnesium Hydroxide 30 ml 07/12/20 19:08 Milk Of Magnesia 30 Ml Oral.Susp PO DAILY PRN Constipation Multi-Ingred Cream/Lotion/Oil/Oint 1 appl 07/15/20 21:00 07/30/20 10:58 Mineral Oil/Petrolatum,White 106 Gm Tube TOPICAL 1 appl BID CASSIDY Administration Pharmacy Consult 1 each 07/07/20 17:02 Consult Rx Perform Med Rec MISCELLANE ONCE PRN Consult order Polyethylene Glycol 17 gm 07/16/20 16:50 07/30/20 10:57 Polyethylene Glycol 3350 17 Gm Powd.Pack PO 17 gm DAILY CASSIDY Administration Allergies Allergies Allergy/AdvReac Type Severity Reaction Status Date / Time aspirin [Aspirin] Allergy Severe SWELLING Verified 07/07/20 19:44 Assessment & Plan Assessment & Plan (1) Urinary retention: Status: Acute Code(s): R33.9 - Retention of urine, unspecified (2) Schizophrenia: Qualifiers: Schizophrenia type: paranoid schizophrenia Qualified Code(s): F20.0 - Paranoid schizophrenia Status: Acute Code(s): F20.9 - Schizophrenia, unspecified Assessment and Plan: 1. Continue Clozaril to 100mg po daily and 100mg po qhs. Increase prolixin 5mg po daily and 10mg po qhs, as we continue to titrate clozaril. Urinary retention- trial of voiding without catheter Greater than 50% of the session was spent on counseling and/or coordination of care Reason for contiued inpatient stay Substantial Risk for: inability to function
[2020-07-30 20:55] VITALS: BP 143/75; PULSE 85
[2020-07-30] MEDS: cloZAPine 100 MG TABLET PO (20:55)
[2020-07-30] MEDS: Doxazosin Mesylate 2 MG TABLET 4 MG PO (20:55)
[2020-07-31 06:00] VITALS: BP 106/65; PULSE 75; TEMP 36.7
[2020-07-31] MEDS: polyethylene glycoL 3350 17 GM POWD.PACK PO (08:06)
[2020-07-31] MEDS: cloZAPine 100 MG TABLET PO ×2 (08:08→21:03)
[2020-07-31] MEDS: Finasteride 5 MG TABLET PO (08:08)
[2020-07-31] MEDS: Mineral Oil/Petrolatum,White 106 GM Tube 1 APPL TOPICAL ×2 (09:27→21:44)
--- NOTE | 2020-07-31 14:21 | HO.PSYCHPN ---
Subjective Subjective Date of Service: 07/31/20 Reason For Visit: acute psychosis Interim History: Pt reports that he continues to hear male voice around the clock. He states voice tells him nice things. He reports some restless and need to pace that has worsened since prolixin was increased- seems like akathisia. He reports sleeping and eating well. He needs to be encouraged to be more visible in the unit. No behavioral concerns. He denies SI/HI. Review of Systems Review of Systems patient reporting no complaints Yes all other systems are reviewed and are negative Constitutional: Denies chills and Denies fever(s) Cardiovascular: Reports no additional cardiovascular complaints, Denies chest pain, Denies syncope and Denies dyspnea Respiratory: Denies chest congestion, Denies cough and Denies dyspnea Gastrointestinal: Denies abdominal pain and Denies heartburn Genitourinary: Reports as per HPI, Denies change in libido and Reports difficulty urinating (retention) Denies syncope Psychiatric: Denies change in libido Endocrine: Denies change in libido Mental Status Exam Mental Status Exam Narrative: Patient Appearance:wearing hospital gown, fair hygiene, in NAD Patient Orientation: alert, oriented to date/place/month/year Patient Behavior: Appropriate and Cooperative Mood Description: Anxious Affect Description: Appropriate and Anxious Speech Pattern: Clear, some slight delayed response rate, otherwise regular rhythm, soft volume, spontaneous Hallucinations: Auditory, no CAH Delusions: Not Present Thought Process: linear Thought Content: AH, otherwise future oriented Judgement/insight: Poor x 2 SI: denies HI: denies No signs of aggression towards self or others Diagnostics Vital Signs (24Hr): Vital Signs - 24 hr 07/30/20 18:00 07/30/20 20:55 07/31/20 06:00 Temperature 97.7 F 98.1 F Pulse Rate 82 85 75 Blood Pressure 143/75 H 143/75 H 106/65 Body Mass Index 25.9 Labs Results: 07/28/20 07:49 07/29/20 15:06 Labs: Laboratory Results - last 48 hr 07/29/20 15:06 Sodium 144 Potassium 4.3 Chloride 108 Carbon Dioxide 29 Anion Gap 11 L BUN 26 H Creatinine 1.40 Estim Creat Clear Calc 42.7 Estimated GFR 49 Random Glucose 109 Calcium 8.3 L D Total Bilirubin 0.6 AST 14 ALT 26 Alkaline Phosphatase 72 Total Protein 5.2 L Albumin 3.5 Imaging Radiology Impressions: ITS Impressions Chest X-Ray 07/07/20 13:48 IMPRESSION: Unremarkable chest examination. Head CT 07/07/20 13:48 IMPRESSION: Unremarkable exam. Retroperitoneum Ultrasound 07/16/20 20:10 IMPRESSION: 1. Urinary retention. The prevoid bladder volume was 482 and the patient was unable to void for postvoid residuals. 2. The bladder wall is markedly trabeculated with scattered diverticula. 3. Moderate hydronephrosis bilaterally. Trace right perinephric free fluid. Medications Medications Current Medications Generic Name Dose Route Start Last Admin Trade Name Freq PRN Reason Stop Dose Admin Acetaminophen 650 mg 07/12/20 19:08 07/29/20 12:41 Acetaminophen 325 Mg Tablet PO 650 mg Q6H PRN Administration Headache/Pain Mild Scale (1-3) Al Hydroxide/Mg Hydroxide 30 ml 07/12/20 19:08 07/13/20 22:11 Magnesium Hydrox/Alum Hydrox 30 Ml Oral.Susp PO 30 ml Q6H PRN Administration Heartburn/Nausea Clozapine 100 mg 07/31/20 09:00 07/31/20 08:08 Clozapine 100 Mg Tablet PO 100 mg DAILY CASSIDY Administration Clozapine 100 mg 07/31/20 20:00 Clozapine 100 Mg Tablet PO 07/31/20 20:01 BEDTIME ONE Clozapine 100 mg/ Clozapine 25 125 mg 08/01/20 21:00 mg PO BEDTIME CASSIDY Doxazosin Mesylate 4 mg 07/18/20 21:00 07/30/20 20:55 Doxazosin Mesylate 2 Mg Tablet PO 4 mg BEDTIME CASSIDY Administration Protocol Finasteride 5 mg 07/19/20 09:00 07/31/20 08:08 Finasteride 5 Mg Tablet PO 5 mg DAILY CASSIDY Administration Magnesium Hydroxide 30 ml 07/12/20 19:08 Milk Of Magnesia 30 Ml Oral.Susp PO DAILY PRN Constipation Multi-Ingred Cream/Lotion/Oil/Oint 1 appl 07/15/20 21:00 07/31/20 09:27 Mineral Oil/Petrolatum,White 106 Gm Tube TOPICAL 1 appl BID CASSIDY Administration Pharmacy Consult 1 each 07/07/20 17:02 Consult Rx Perform Med Rec MISCELLANE ONCE PRN Consult order Polyethylene Glycol 17 gm 07/16/20 16:50 07/31/20 08:06 Polyethylene Glycol 3350 17 Gm Powd.Pack PO 17 gm DAILY CASSIDY Administration Allergies Allergies Allergy/AdvReac Type Severity Reaction Status Date / Time aspirin [Aspirin] Allergy Severe SWELLING Verified 07/07/20 19:44 Assessment & Plan Assessment & Plan (1) Urinary retention: Status: Acute Code(s): R33.9 - Retention of urine, unspecified (2) Schizophrenia: Qualifiers: Schizophrenia type: paranoid schizophrenia Qualified Code(s): F20.0 - Paranoid schizophrenia Status: Acute Code(s): F20.9 - Schizophrenia, unspecified Assessment and Plan: 1. Increase Clozaril to 100mg po daily and 125mg po qhs. d/c prolixin 5mg po daily and 10mg po qhs (due to akathisia), as we continue to titrate clozaril. Urinary retention- trial of voiding without catheter Greater than 50% of the session was spent on counseling and/or coordination of care Reason for contiued inpatient stay Substantial Risk for: inability to function
[2020-07-31 18:00] VITALS: BP 155/75; PULSE 87; RESP 16; TEMP 36.3
[2020-07-31 19:42] VITALS: BP 133/70; PULSE 91
[2020-07-31 21:03] VITALS: BP 141/72; PULSE 100
[2020-07-31] MEDS: Doxazosin Mesylate 2 MG TABLET 4 MG PO (21:03)
[2020-08-01 06:00] VITALS: BP 139/80; PULSE 76; RESP 18; TEMP 36.6; O2SAT 96
[2020-08-01] MEDS: cloZAPine 100 MG TABLET PO (08:25)
[2020-08-01] MEDS: Finasteride 5 MG TABLET PO (08:25)
[2020-08-01] MEDS: polyethylene glycoL 3350 17 GM POWD.PACK PO (08:26)
[2020-08-01] MEDS: Mineral Oil/Petrolatum,White 106 GM Tube 1 APPL TOPICAL ×2 (08:29→20:14)
--- NOTE | 2020-08-01 17:16 | P.PNPSI_ITS ---
Subjective Subjective Date of Service: 08/02/20 Reason For Visit: acute psychosis Interim History: Pt reports feeling less anxious. He had reported feeling restless and need to pace, which it appears have increased or started with addition of prolixin. Prolixin was d/briana. Pt reports less subjective feeling of needing to pace and move lower extremities. He reports voice continues to be th ere but it is nicer. He denies SI/HI. He has been visible in unit but minimally interactive with peers, although pleasant on approach. Review of Systems Review of Systems patient reporting no complaints Yes all other systems are reviewed and are negative Constitutional: Denies chills and Denies fever(s) Cardiovascular: Reports no additional cardiovascular complaints, Denies chest pain, Denies syncope and Denies dyspnea Respiratory: Denies chest congestion, Denies cough and Denies dyspnea Gastrointestinal: Denies abdominal pain and Denies heartburn Genitourinary: Reports as per HPI, Denies change in libido and Reports dif ficulty urinating (retention) Denies syncope Psychiatric: Denies change in libido Endocrine: Denies change in libido Mental Status Exam Mental Status Exam Narrative: Patient Appearance:wearing hospital gown, fair hygiene, in NAD Patient Orientation: alert, oriented to date/place/month/year Patient Behavior: Appropriate and Cooperative Mood Description: Anxious Affect Description: Appropriate and Anxious Speech Pattern: Clear, some slight delayed response rate, otherwise regular rhythm, soft volume, spontaneous Hallucinations: Auditory, no CAH Delusions: Not Present Thought Process: linear Thought Content: AH, otherwise future oriented Judgement/insight: Poor x 2 SI: denies HI: denies No signs of aggression towards self or others Diagnostics Vital Signs (24Hr): Vital Signs - 24 hr 07/31/20 18:00 07/31/20 19:42 07/31/20 21:03 Temperature 97.3 F Pulse Rate 87 91 100 Respiratory Rate 16 Blood Pressure 155/75 H 133/70 141/72 H Pulse Oximetry 08/01/20 06:00 Temperature 97.8 F Pulse Rate 76 Respiratory Rate 18 Blood Pressure 139/80 Pulse Oximetry 96 Body Mass Index 25.9 Labs Results: 07/28/20 07:49 07/29/20 15:06 Imaging Radiology Impressions: ITS Impressions Chest X-Ray 07/07/20 13:48 IMPRESSION: Unremarkable chest examination. Head CT 07/07/20 13:48 IMPRESSION: Unremarkable exam. Retroperitoneum Ultrasound 07/16/20 20:10 IMPRESSION: 1. Urinary retention. The prevoid bladder volume was 482 and the patient was unable to void for postvoid residuals. 2. The bladder wall is markedly trabeculated with scattered diverticula. 3. Moderate hydronephrosis bilaterally. Trace right perinephric free fluid. Medications Medications Current Medications Generic Name Dose Route Start Last Admin Trade Name Freq PRN Reason Stop Dose Admin Acetaminophen 650 mg 07/12/20 19:08 07/29/20 12:41 Acetaminophen 325 Mg Tablet PO 650 mg Q6H PRN Administration Headache/Pain Mild Scale (1-3) Al Hydroxide/Mg Hydroxide 30 ml 07/12/20 19:08 07/13/20 22:11 Magnesium Hydrox/Alum Hydrox 30 Ml Oral.Susp PO 30 ml Q6H PRN Administration Heartburn/Nausea Clozapine 100 mg 07/31/20 09:00 08/01/20 08:25 Clozapine 100 Mg Tablet PO 100 mg DAILY CASSIDY Administration Clozapine 100 mg/ Clozapine 25 125 mg 08/01/20 21:00 mg PO BEDTIME CASSIDY Doxazosin Mesylate 4 mg 07/18/20 21:00 07/31/20 21:03 Doxazosin Mesylate 2 Mg Tablet PO 4 mg BEDTIME CASSIDY Administration Protocol Finasteride 5 mg 07/19/20 09:00 08/01/20 08:25 Finasteride 5 Mg Tablet PO 5 mg DAILY CASSIDY Administration Magnesium Hydroxide 30 ml 07/12/20 19:08 Milk Of Magnesia 30 Ml Oral.Susp PO DAILY PRN Constipation Multi-Ingred Cream/Lotion/Oil/Oint 1 appl 07/15/20 21:00 08/01/20 08:29 Mineral Oil/Petrolatum,White 106 Gm Tube TOPICAL 1 appl BID CASSIDY Administration Pharmacy Consult 1 each 07/07/20 17:02 Consult Rx Perform Med Rec MISCELLANE ONCE PRN Consult order Polyethylene Glycol 17 gm 07/16/20 16:50 08/01/20 08:26 Polyethylene Glycol 3350 17 Gm Powd.Pack PO 17 gm DAILY CASSIDY Administration Allergies Allergies Allergy/AdvReac Type Severity Reaction Status Date / Time aspirin [Aspirin] Allergy Severe SWELLING Verified 07/07/20 19:44 Assessment & Plan Assessment & Plan (1) Urinary retention: Status: Acute Code(s): R33.9 - Retention of urine, unspecified (2) Schizophrenia: Qualifiers: Schizophrenia type: paranoid schizophrenia Qualified Code(s): F20.0 - Paranoid schizophrenia Status: Acute Code(s): F20.9 - Schizophrenia, unspecified Assessment and Plan: 1. Increase Clozaril to 100mg po daily and 125mg po qhs. d/c prolixin 5mg po daily and 10mg po qhs (due to akathisia), as we continue to titrate clozaril. Urinary retention- trial of voiding without catheter Greater than 50% of the session was spent on counseling and/or coordination of care Reason for contiued inpatient stay Substantial Risk for: inability to function
[2020-08-01 18:00] VITALS: BP 130/77; PULSE 80; TEMP 36.3
[2020-08-01] MEDS: cloZAPine 100 MG, cloZAPine 25 MG 125 MG PO (20:13)
[2020-08-01 20:14] VITALS: BP 130/77; PULSE 80
[2020-08-01] MEDS: Doxazosin Mesylate 2 MG TABLET 4 MG PO (20:14)
[2020-08-02 05:55] VITALS: BP 129/73; PULSE 74; RESP 18; TEMP 36.4; O2SAT 96
[2020-08-02] MEDS: Finasteride 5 MG TABLET PO (09:04)
[2020-08-02] MEDS: polyethylene glycoL 3350 17 GM POWD.PACK PO (09:08)
[2020-08-02] MEDS: cloZAPine 100 MG TABLET PO (09:08)
[2020-08-02] MEDS: Mineral Oil/Petrolatum,White 106 GM Tube 1 APPL TOPICAL ×2 (10:00→21:03)
[2020-08-02 18:00] VITALS: BP 147/81; PULSE 79; TEMP 36.4
[2020-08-02 20:30] VITALS: BP 137/75; PULSE 79
[2020-08-02 20:50] VITALS: BP 137/75; PULSE 79
[2020-08-02] MEDS: cloZAPine 100 MG, cloZAPine 25 MG 125 MG PO (20:50)
[2020-08-02] MEDS: Doxazosin Mesylate 2 MG TABLET 4 MG PO (20:50)
--- NOTE | 2020-08-02 21:57 | HO.PSYCHPN ---
Subjective Subjective Date of Service: 08/03/20 Reason For Visit: acute psychosis Interim History: pt pleasant future oriented when seen has auditory hallucinations but are much less disturbing patient wishing to return to his condo with support he is also looking at other options Medication Compliance: Yes Mental Status Exam Mental Status Exam Patient Appearance: Appropriate and Unkempt Level of Consciousness: Awake Patient Behavior: Talkative and Cooperative Mood Description: Calm Affect Description: Calm, Appropriate and Anxious Ability to Follow Directions: Good Speech Pattern: Clear Hallucinations: Auditory Thought Process: Rumination Thought Content: positive for Linear, positive for Preoccupation, negative for Suicidal Ideation and negative for Homicidal Ideation Diagnostics Vital Signs (24Hr): Vital Signs - 24 hr 08/02/20 05:55 08/02/20 18:00 08/02/20 20:30 Temperature 97.5 F 97.6 F Pulse Rate 74 79 79 Respiratory Rate 18 Blood Pressure 129/73 147/81 H 137/75 Pulse Oximetry 96 08/02/20 20:50 Temperature Pulse Rate 79 Respiratory Rate Blood Pressure 137/75 Pulse Oximetry Body Mass Index 25.9 Labs Results: 07/28/20 07:49 07/29/20 15:06 Imaging Radiology Impressions: ITS Impressions Chest X-Ray 07/07/20 13:48 IMPRESSION: Unremarkable chest examination. Head CT 07/07/20 13:48 IMPRESSION: Unremarkable exam. Retroperitoneum Ultrasound 07/16/20 20:10 IMPRESSION: 1. Urinary retention. The prevoid bladder volume was 482 and the patient was unable to void for postvoid residuals. 2. The bladder wall is markedly trabeculated with scattered diverticula. 3. Moderate hydronephrosis bilaterally. Trace right perinephric free fluid. Medications Medications Current Medications Generic Name Dose Route Start Last Admin Trade Name Freq PRN Reason Stop Dose Admin Acetaminophen 650 mg 07/12/20 19:08 07/29/20 12:41 Acetaminophen 325 Mg Tablet PO 650 mg Q6H PRN Administration Headache/Pain Mild Scale (1-3) Al Hydroxide/Mg Hydroxide 30 ml 07/12/20 19:08 07/13/20 22:11 Magnesium Hydrox/Alum Hydrox 30 Ml Oral.Susp PO 30 ml Q6H PRN Administration Heartburn/Nausea Clozapine 100 mg 07/31/20 09:00 08/02/20 09:08 Clozapine 100 Mg Tablet PO 100 mg DAILY CASSIDY Administration Clozapine 100 mg/ Clozapine 25 125 mg 08/01/20 21:00 08/02/20 20:50 mg PO 125 mg BEDTIME CASSIDY Administration Doxazosin Mesylate 4 mg 07/18/20 21:00 08/02/20 20:50 Doxazosin Mesylate 2 Mg Tablet PO 4 mg BEDTIME CASSIDY Administration Protocol Finasteride 5 mg 07/19/20 09:00 08/02/20 09:04 Finasteride 5 Mg Tablet PO 5 mg DAILY CASSDIY Administration Magnesium Hydroxide 30 ml 07/12/20 19:08 Milk Of Magnesia 30 Ml Oral.Susp PO DAILY PRN Constipation Multi-Ingred Cream/Lotion/Oil/Oint 1 appl 07/15/20 21:00 08/02/20 21:03 Mineral Oil/Petrolatum,White 106 Gm Tube TOPICAL 1 appl BID CASSIDY Administration Pharmacy Consult 1 each 07/07/20 17:02 Consult Rx Perform Med Rec MISCELLANE ONCE PRN Consult order Polyethylene Glycol 17 gm 07/16/20 16:50 08/02/20 09:08 Polyethylene Glycol 3350 17 Gm Powd.Pack PO 17 gm DAILY CASSIDY Administration Allergies Allergies Allergy/AdvReac Type Severity Reaction Status Date / Time aspirin [Aspirin] Allergy Severe SWELLING Verified 07/07/20 19:44 Assessment & Plan Assessment & Plan (1) Chronic schizophrenia with acute exacerbation: Status: Acute Code(s): F20.9 - Schizophrenia, unspecified Assessment and Plan: Continue plan of care discharge planning patient on close observation secondary to Simmons catheter no self-harming thoughts (2) UTI (urinary tract infection): Status: Acute Code(s): N39.0 - Urinary tract infection, site not specified (3) Urinary retention: Status: Acute Code(s): R33.9 - Retention of urine, unspecified Greater than 50% of the session was spent on counseling and/or coordination of care Reason for contiued inpatient stay Substantial Risk for: inability to function, rapid decompensation and med/psych decompensation
[2020-08-03] MEDS: Finasteride 5 MG TABLET PO (08:42)
[2020-08-03] MEDS: polyethylene glycoL 3350 17 GM POWD.PACK PO (08:42)
[2020-08-03] MEDS: cloZAPine 100 MG TABLET PO (08:42)
[2020-08-03] MEDS: Mineral Oil/Petrolatum,White 106 GM Tube 1 APPL TOPICAL ×2 (09:44→20:12)
[2020-08-03 18:00] VITALS: BP 141/73; PULSE 78; TEMP 36.6
[2020-08-03 19:45] VITALS: BP 177/86; PULSE 88
[2020-08-03 20:06] VITALS: BP 136/81; PULSE 77
[2020-08-03 20:08] VITALS: BP 136/81; PULSE 77
[2020-08-03] MEDS: Doxazosin Mesylate 2 MG TABLET 4 MG PO (20:08)
[2020-08-03] MEDS: cloZAPine 100 MG, cloZAPine 25 MG 125 MG PO (20:08)
--- NOTE | 2020-08-03 22:35 | HO.PSYCHPN ---
Subjective Subjective Date of Service: 08/03/20 Reason For Visit: acute psychosis Interim History: Patient generally improving on combination of clozapine and Prolixin has Simmons catheter followed by Neurology Medication Compliance: Yes Side effects from medications: Yes Mental Status Exam Mental Status Exam Narrative: Patient Appearance:wearing hospital gown, fair hygiene, in NAD Patient Orientation: alert, oriented to date/place/month/year Patient Behavior: Appropriate and Cooperative Mood Description: Anxious Affect Description: Appropriate and Anxious Speech Pattern: Clear, some slight delayed response rate, otherwise regular rhythm, soft volume, spontaneous Hallucinations: Auditory, no CAH Delusions: Not Present Thought Process: linear Thought Content: AH, otherwise future oriented Judgement/insight: Poor x 2 SI: denies HI: denies No signs of aggression towards self or others Diagnostics Vital Signs (24Hr): Vital Signs - 24 hr 08/03/20 18:00 08/03/20 19:45 08/03/20 20:06 Temperature 97.8 F Pulse Rate 78 88 77 Blood Pressure 141/73 H 177/86 H 136/81 08/03/20 20:08 Temperature Pulse Rate 77 Blood Pressure 136/81 Body Mass Index 25.9 Labs Results: 07/28/20 07:49 08/04/20 14:13 Imaging Radiology Impressions: ITS Impressions Chest X-Ray 07/07/20 13:48 IMPRESSION: Unremarkable chest examination. Head CT 07/07/20 13:48 IMPRESSION: Unremarkable exam. Retroperitoneum Ultrasound 07/16/20 20:10 IMPRESSION: 1. Urinary retention. The prevoid bladder volume was 482 and the patient was unable to void for postvoid residuals. 2. The bladder wall is markedly trabeculated with scattered diverticula. 3. Moderate hydronephrosis bilaterally. Trace right perinephric free fluid. Medications Medications Current Medications Generic Name Dose Route Start Last Admin Trade Name Freq PRN Reason Stop Dose Admin Acetaminophen 650 mg 07/12/20 19:08 07/29/20 12:41 Acetaminophen 325 Mg Tablet PO 650 mg Q6H PRN Administration Headache/Pain Mild Scale (1-3) Al Hydroxide/Mg Hydroxide 30 ml 07/12/20 19:08 07/13/20 22:11 Magnesium Hydrox/Alum Hydrox 30 Ml Oral.Susp PO 30 ml Q6H PRN Administration Heartburn/Nausea Clozapine 100 mg 07/31/20 09:00 08/03/20 08:42 Clozapine 100 Mg Tablet PO 100 mg DAILY CASSIDY Administration Clozapine 100 mg/ Clozapine 25 125 mg 08/01/20 21:00 08/03/20 20:08 mg PO 125 mg BEDTIME CASSIDY Administration Doxazosin Mesylate 4 mg 07/18/20 21:00 08/03/20 20:08 Doxazosin Mesylate 2 Mg Tablet PO 4 mg BEDTIME CASSIDY Administration Protocol Finasteride 5 mg 07/19/20 09:00 08/03/20 08:42 Finasteride 5 Mg Tablet PO 5 mg DAILY CASSIDY Administration Magnesium Hydroxide 30 ml 07/12/20 19:08 Milk Of Magnesia 30 Ml Oral.Susp PO DAILY PRN Constipation Multi-Ingred Cream/Lotion/Oil/Oint 1 appl 07/15/20 21:00 08/03/20 20:12 Mineral Oil/Petrolatum,White 106 Gm Tube TOPICAL 1 appl BID CASSIDY Administration Pharmacy Consult 1 each 07/07/20 17:02 Consult Rx Perform Med Rec MISCELLANE ONCE PRN Consult order Polyethylene Glycol 17 gm 07/16/20 16:50 08/03/20 08:42 Polyethylene Glycol 3350 17 Gm Powd.Pack PO 17 gm DAILY CASSIDY Administration Allergies Allergies Allergy/AdvReac Type Severity Reaction Status Date / Time aspirin [Aspirin] Allergy Severe SWELLING Verified 07/07/20 19:44 Assessment & Plan Assessment & Plan (1) Chronic schizophrenia with acute exacerbation: Status: Acute Code(s): F20.9 - Schizophrenia, unspecified Assessment and Plan: Continue Simmons catheter per Urology continue Prolixin and clozapine more stable no SI Greater than 50% of the session was spent on counseling and/or coordination of care Reason for contiued inpatient stay Substantial Risk for: inability to function, rapid decompensation and med/psych decompensation
[2020-08-04 06:25] VITALS: BP 159/90; PULSE 75; RESP 16; TEMP 36.3; O2SAT 97
[2020-08-04] MEDS: polyethylene glycoL 3350 17 GM POWD.PACK PO (09:02)
[2020-08-04] MEDS: Mineral Oil/Petrolatum,White 106 GM Tube 1 APPL TOPICAL ×2 (09:03→21:41)
[2020-08-04] MEDS: Finasteride 5 MG TABLET PO (09:04)
[2020-08-04] MEDS: cloZAPine 100 MG TABLET PO (09:04)
[2020-08-04 09:46] LABS: Neut%MD 77.7 %; WBCANC 5.2 X10*3/uL
--- NOTE | 2020-08-04 13:50 | HO.PSYCHPN ---
Subjective Subjective Date of Service: 08/04/20 Reason For Visit: acute psychosis Interim History: Pt appears with brighter affect. He reports that he continues to hear male voice but this voice is nicer. He reports feeling less restless/need to pace without prolixin. He denies SI/HI. He has been visible in unit after much encouragement but mostly in bed. He is sleeping and eating well. Review of Systems Review of Systems patient reporting no complaints Yes all other systems are reviewed and are negative Constitutional: Denies chills and Denies fever(s) Cardiovascular: Reports no additional cardiovascular complaints, Denies chest pain, Denies syncope and Denies dyspnea Respiratory: Denies chest congestion, Denies cough and Denies dyspnea Gastrointestinal: Denies abdominal pain and Denies heartburn Genitourinary: Reports as per HPI, Denies change in libido and Reports difficulty urinating (retention) Denies syncope Psychiatric: Denies change in libido Endocrine: Denies change in libido Mental Status Exam Mental Status Exam Narrative: Patient Appearance:wearing hospital gown, fair hygiene, in NAD Patient Orientation: alert, oriented to date/place/month/year Patient Behavior: Appropriate and Cooperative Mood Description: Anxious Affect Description: Appropriate and Anxious Speech Pattern: Clear, some slight delayed response rate, otherwise regular rhythm, soft volume, spontaneous Hallucinations: Auditory, no CAH Delusions: Not Present Thought Process: linear Thought Content: AH, otherwise future oriented Judgement/insight: Poor x 2 SI: denies HI: denies No signs of aggression towards self or others Diagnostics Vital Signs (24Hr): Vital Signs - 24 hr 08/03/20 18:00 08/03/20 19:45 08/03/20 20:06 Temperature 97.8 F Pulse Rate 78 88 77 Respiratory Rate Blood Pressure 141/73 H 177/86 H 136/81 Pulse Oximetry 08/03/20 20:08 08/04/20 06:25 Temperature 97.4 F Pulse Rate 77 75 Respiratory Rate 16 Blood Pressure 136/81 159/90 H Pulse Oximetry 97 Body Mass Index 25.9 Labs Results: 07/28/20 07:49 07/29/20 15:06 Labs: Laboratory Results - last 48 hr 08/04/20 09:24 Absolute Neuts (auto) 4.0 Imaging Radiology Impressions: ITS Impressions Chest X-Ray 07/07/20 13:48 IMPRESSION: Unremarkable chest examination. Head CT 07/07/20 13:48 IMPRESSION: Unremarkable exam. Retroperitoneum Ultrasound 07/16/20 20:10 IMPRESSION: 1. Urinary retention. The prevoid bladder volume was 482 and the patient was unable to void for postvoid residuals. 2. The bladder wall is markedly trabeculated with scattered diverticula. 3. Moderate hydronephrosis bilaterally. Trace right perinephric free fluid. Medications Medications Current Medications Generic Name Dose Route Start Last Admin Trade Name Freq PRN Reason Stop Dose Admin Acetaminophen 650 mg 07/12/20 19:08 07/29/20 12:41 Acetaminophen 325 Mg Tablet PO 650 mg Q6H PRN Administration Headache/Pain Mild Scale (1-3) Al Hydroxide/Mg Hydroxide 30 ml 07/12/20 19:08 07/13/20 22:11 Magnesium Hydrox/Alum Hydrox 30 Ml Oral.Susp PO 30 ml Q6H PRN Administration Heartburn/Nausea Clozapine 100 mg 07/31/20 09:00 08/04/20 09:04 Clozapine 100 Mg Tablet PO 100 mg DAILY CASSIDY Administration Clozapine 100 mg/ Clozapine 25 125 mg 08/01/20 21:00 08/03/20 20:08 mg PO 125 mg BEDTIME CASSIDY Administration Doxazosin Mesylate 4 mg 07/18/20 21:00 08/03/20 20:08 Doxazosin Mesylate 2 Mg Tablet PO 4 mg BEDTIME CASSIDY Administration Protocol Finasteride 5 mg 07/19/20 09:00 08/04/20 09:04 Finasteride 5 Mg Tablet PO 5 mg DAILY CASSIDY Administration Magnesium Hydroxide 30 ml 07/12/20 19:08 Milk Of Magnesia 30 Ml Oral.Susp PO DAILY PRN Constipation Multi-Ingred Cream/Lotion/Oil/Oint 1 appl 07/15/20 21:00 08/04/20 09:03 Mineral Oil/Petrolatum,White 106 Gm Tube TOPICAL 1 appl BID CASSIDY Administration Pharmacy Consult 1 each 07/07/20 17:02 Consult Rx Perform Med Rec MISCELLANE ONCE PRN Consult order Polyethylene Glycol 17 gm 07/16/20 16:50 08/04/20 09:02 Polyethylene Glycol 3350 17 Gm Powd.Pack PO 17 gm DAILY CASSIDY Administration Allergies Allergies Allergy/AdvReac Type Severity Reaction Status Date / Time aspirin [Aspirin] Allergy Severe SWELLING Verified 07/07/20 19:44 Assessment & Plan Assessment & Plan (1) Chronic schizophrenia with acute exacerbation: Status: Acute Code(s): F20.9 - Schizophrenia, unspecified Assessment and Plan: Continue plan of care discharge planning patient on close observation secondary to Simmons catheter no self-harming thoughts (2) UTI (urinary tract infection): Status: Acute Code(s): N39.0 - Urinary tract infection, site not specified (3) Urinary retention: Status: Acute Code(s): R33.9 - Retention of urine, unspecified Greater than 50% of the session was spent on counseling and/or coordination of care Reason for contiued inpatient stay Substantial Risk for: inability to function
[2020-08-04 14:49] LABS: Alanine Aminotransferase 27 U/L (0-40); Alkaline Phosphatase 83 U/L (39-117); Anion Gap 13 (12-20); Aspartate Amino Transferase 17 U/L (5-37); Bilirubin Total 0.6 mg/dL (0.0-1.0); Blood Urea Nitrogen 23 mg/dL (9-16); Calcium 8.9 mg/dL (8.4-10.2); Carbon Dioxide 30 mmol/L (22-29); Chloride 104 mmol/L (96-108); Creatinine Clr Calc Pharmacy 45.3; Estimated Glomerular Filt Rate 53; Glucose Fasting 103 mg/dL (60-99); Potassium 4.5 mmol/L (3.3-5.1); Sodium 142 mmol/L (135-145)
[2020-08-04 16:24] VITALS: BP 138/63; PULSE 86
[2020-08-04] MEDS: amLODIPine Besylate 5 MG TABLET PO (16:24)
[2020-08-04 16:29] VITALS: BP 138/63; PULSE 86; TEMP 36.4
[2020-08-04 21:35] VITALS: BP 151/74; PULSE 87
[2020-08-04] MEDS: Doxazosin Mesylate 2 MG TABLET 4 MG PO (21:35)
[2020-08-04] MEDS: cloZAPine 100 MG, cloZAPine 25 MG 125 MG PO (21:40)
[2020-08-05 06:25] VITALS: BP 158/64; PULSE 68; RESP 18; TEMP 36.3; O2SAT 96
[2020-08-05 08:42] VITALS: BP 144/65
[2020-08-05] MEDS: cloZAPine 100 MG TABLET PO (08:42)
[2020-08-05] MEDS: polyethylene glycoL 3350 17 GM POWD.PACK PO (08:42)
[2020-08-05] MEDS: Finasteride 5 MG TABLET PO (08:42)
[2020-08-05] MEDS: Mineral Oil/Petrolatum,White 106 GM Tube 1 APPL TOPICAL (08:42)
[2020-08-05] MEDS: amLODIPine Besylate 5 MG TABLET PO (08:42)
--- NOTE | 2020-08-05 16:30 | HO.PSYCHPN ---
Subjective Subjective Date of Service: 08/05/20 Reason For Visit: acute psychosis Interim History: Pt mostly in bed. With much encouragement he walks in unit. He reports [facility] is nice. He reports feeling less anxious. He denies SI/HI. He reports eating and sleeping well. He will be d/briana to [facility]. Review of Systems Review of Systems patient reporting no complaints Yes all other systems are reviewed and are negative Constitutional: Denies chills and Denies fever(s) Cardiovascular: Reports no additional cardiovascular complaints, Denies chest pain, Denies syncope and Denies dyspnea Respiratory: Denies chest congestion, Denies cough and Denies dyspnea Gastrointestinal: Denies abdominal pain and Denies heartburn Genitourinary: Reports as per HPI, Denies change in libido and Reports difficulty urinating (retention) Denies syncope Psychiatric: Denies change in libido Endocrine: Denies change in libido Mental Status Exam Mental Status Exam Narrative: Patient Appearance:wearing hospital gown, fair hygiene, in NAD Patient Orientation: alert, oriented to date/place/month/year Patient Behavior: Appropriate and Cooperative Mood Description: Anxious Affect Description: Appropriate and Anxious Speech Pattern: Clear, some slight delayed response rate, otherwise regular rhythm, soft volume, spontaneous Hallucinations: Auditory, no CAH Delusions: Not Present Thought Process: linear Thought Content: AH, otherwise future oriented Judgement/insight: Poor x 2 SI: denies HI: denies No signs of aggression towards self or others Diagnostics Vital Signs (24Hr): Vital Signs - 24 hr 08/04/20 21:35 08/05/20 06:25 08/05/20 08:42 Temperature 97.4 F Pulse Rate 87 68 Respiratory Rate 18 Blood Pressure 151/74 H 158/64 H 144/65 H Pulse Oximetry 96 Body Mass Index 25.9 Labs Results: 07/28/20 07:49 08/04/20 14:13 Labs: Laboratory Results - last 48 hr 08/04/20 08/04/20 09:24 14:13 Absolute Neuts (auto) 4.0 Sodium 142 Potassium 4.5 Chloride 104 Carbon Dioxide 30 H Anion Gap 13 BUN 23 H Creatinine 1.32 Estim Creat Clear Calc 45.3 Estimated GFR 53 Fasting Glucose 103 H Calcium 8.9 D Total Bilirubin 0.6 AST 17 ALT 27 Alkaline Phosphatase 83 Total Protein 6.0 L Albumin 4.0 Imaging Radiology Impressions: ITS Impressions Chest X-Ray 07/07/20 13:48 IMPRESSION: Unremarkable chest examination. Head CT 07/07/20 13:48 IMPRESSION: Unremarkable exam. Retroperitoneum Ultrasound 07/16/20 20:10 IMPRESSION: 1. Urinary retention. The prevoid bladder volume was 482 and the patient was unable to void for postvoid residuals. 2. The bladder wall is markedly trabeculated with scattered diverticula. 3. Moderate hydronephrosis bilaterally. Trace right perinephric free fluid. Medications Medications Current Medications Generic Name Dose Route Start Last Admin Trade Name Freq PRN Reason Stop Dose Admin Acetaminophen 650 mg 07/12/20 19:08 07/29/20 12:41 Acetaminophen 325 Mg Tablet PO 650 mg Q6H PRN Administration Headache/Pain Mild Scale (1-3) Al Hydroxide/Mg Hydroxide 30 ml 07/12/20 19:08 07/13/20 22:11 Magnesium Hydrox/Alum Hydrox 30 Ml Oral.Susp PO 30 ml Q6H PRN Administration Heartburn/Nausea Amlodipine Besylate 5 mg 08/04/20 15:30 08/05/20 08:42 Amlodipine Besylate 5 Mg Tablet PO 5 mg DAILY CASSIDY Administration Protocol Clozapine 100 mg 07/31/20 09:00 08/05/20 08:42 Clozapine 100 Mg Tablet PO 100 mg DAILY CASSIDY Administration Clozapine 100 mg/ Clozapine 25 125 mg 08/01/20 21:00 08/04/20 21:40 mg PO 125 mg BEDTIME CASSIDY Administration Doxazosin Mesylate 4 mg 07/18/20 21:00 08/04/20 21:35 Doxazosin Mesylate 2 Mg Tablet PO 4 mg BEDTIME CASSIDY Administration Protocol Finasteride 5 mg 07/19/20 09:00 08/05/20 08:42 Finasteride 5 Mg Tablet PO 5 mg DAILY CASSIDY Administration Magnesium Hydroxide 30 ml 07/12/20 19:08 Milk Of Magnesia 30 Ml Oral.Susp PO DAILY PRN Constipation Multi-Ingred Cream/Lotion/Oil/Oint 1 appl 07/15/20 21:00 08/05/20 08:42 Mineral Oil/Petrolatum,White 106 Gm Tube TOPICAL 1 appl BID CASSIDY Administration Pharmacy Consult 1 each 07/07/20 17:02 Consult Rx Perform Med Rec MISCELLANE ONCE PRN Consult order Polyethylene Glycol 17 gm 07/16/20 16:50 08/05/20 08:42 Polyethylene Glycol 3350 17 Gm Powd.Pack PO 17 gm DAILY CASSIDY Administration Allergies Allergies Allergy/AdvReac Type Severity Reaction Status Date / Time aspirin [Aspirin] Allergy Severe SWELLING Verified 07/07/20 19:44 Assessment & Plan Assessment & Plan (1) Chronic schizophrenia with acute exacerbation: Status: Acute Code(s): F20.9 - Schizophrenia, unspecified Assessment and Plan: Continue plan of care discharge planning patient on close observation secondary to Simmons catheter no self-harming thoughts (2) UTI (urinary tract infection): Status: Acute Code(s): N39.0 - Urinary tract infection, site not specified (3) Urinary retention: Status: Acute Code(s): R33.9 - Retention of urine, unspecified Greater than 50% of the session was spent on counseling and/or coordination of care Reason for contiued inpatient stay Substantial Risk for: inability to function
[2020-08-05 20:53] VITALS: BP 141/69; PULSE 77
[2020-08-05] MEDS: Doxazosin Mesylate 2 MG TABLET 4 MG PO (20:53)
[2020-08-05] MEDS: cloZAPine 100 MG, cloZAPine 25 MG 125 MG PO (20:54)
[2020-08-05 22:38] VITALS: TEMP 37.1
[2020-08-06 06:00] VITALS: BP 123/63; PULSE 72; TEMP 36.6
[2020-08-06] MEDS: cloZAPine 100 MG TABLET PO (08:27)
[2020-08-06] MEDS: Finasteride 5 MG TABLET PO (08:27)
[2020-08-06] MEDS: polyethylene glycoL 3350 17 GM POWD.PACK PO (08:28)
[2020-08-06 10:17] VITALS: BP 124/68; PULSE 86
[2020-08-06] MEDS: amLODIPine Besylate 5 MG TABLET PO (10:17)
[2020-08-06] MEDS: Mineral Oil/Petrolatum,White 106 GM Tube 1 APPL TOPICAL ×2 (10:20→22:21)
--- NOTE | 2020-08-06 17:10 | P.PNPSI_ITS ---
Subjective Subjective Date of Service: 08/06/20 Reason For Visit: acute psychosis Interim History: Pt continues to report that voice is nice . He reports feeling less anxious when thinking about voice becoming mean again. He denies SI/HI. He reports sleeping and eating well. He needs encouragement to ambulate. He does not attend groups. No behavioral concerns. Review of Systems Review of Systems patient reporting no complaints Yes all other systems are reviewed and are negative Constitutional: Denies chills and Denies fever(s) Cardiovascular: Reports no additional cardiovascular complaints, Denies chest pain, Denies syncope and Denies dyspnea Respiratory: Denies chest congestion, Denies cough and Denies dyspnea Gastrointestinal: Denies abdominal pain and Denies heartburn Genitourinary: Reports as per HPI, Denies change in libido and Reports difficulty urinating (retention) Denies syncope Psychiatric: Denies change in libido Endocrine: Denies change in libido Mental Status Exam Mental Status Exam Narrative: Patient Appearance:wearing hospital gown, fair hygiene, in NAD Patient Orientation: alert, oriented to date/place/month/year Patient Behavior: Appropriate and Cooperative Mood Description: Anxious Affect Description: Appropriate and Anxious Speech Pattern: Clear, some slight delayed response rate, otherwise regular rhythm, soft volume, spontaneous Hallucinations: Auditory, no CAH Delusions: Not Present Thought Process: linear Thought Content: AH, otherwise future oriented Judgement/insight: Poor x 2 SI: denies HI: denies No signs of aggression towards self or others Diagnostics Vital Signs (24Hr): Vital Signs - 24 hr 08/05/20 20:53 08/05/20 22:38 08/06/20 06:00 Temperature 98.8 F 97.9 F Pulse Rate 77 72 Blood Pressure 141/69 H 123/63 08/06/20 10:17 Temperature Pulse Rate 86 Blood Pressure 124/68 Body Mass Index 25.9 Labs Results: 07/28/20 07:49 08/04/20 14:13 Imaging Radiology Impressions: ITS Impressions Chest X-Ray 07/07/20 13:48 IMPRESSION: Unremarkable chest examination. Head CT 07/07/20 13:48 IMPRESSION: Unremarkable exam. Retroperitoneum Ultrasound 07/16/20 20:10 IMPRESSION: 1. Urinary retention. The prevoid bladder volume was 482 and the patient was unable to void for postvoid residuals. 2. The bladder wall is markedly trabeculated with scattered diverticula. 3. Moderate hydronephrosis bilaterally. Trace right perinephric free fluid. Medications Medications Current Medications Generic Name Dose Route Start Last Admin Trade Name Kishanq PRN Reason Stop Dose Admin Acetaminophen 650 mg 07/12/20 19:08 07/29/20 12:41 Acetaminophen 325 Mg Tablet PO 650 mg Q6H PRN Administration Headache/Pain Mild Scale (1-3) Al Hydroxide/Mg Hydroxide 30 ml 07/12/20 19:08 07/13/20 22:11 Magnesium Hydrox/Alum Hydrox 30 Ml Oral.Susp PO 30 ml Q6H PRN Administration Heartburn/Nausea Amlodipine Besylate 5 mg 08/04/20 15:30 08/06/20 10:17 Amlodipine Besylate 5 Mg Tablet PO 5 mg DAILY [facility] Administration Protocol Clozapine 100 mg 07/31/20 09:00 08/06/20 08:27 Clozapine 100 Mg Tablet PO 100 mg DAILY [facility] Administration Clozapine 150 mg 08/06/20 21:00 Clozapine 25 Mg Tablet PO BEDTIME [facility] Doxazosin Mesylate 4 mg 07/18/20 21:00 08/05/20 20:53 Doxazosin Mesylate 2 Mg Tablet PO 4 mg BEDTIME [facility] Administration Protocol Finasteride 5 mg 07/19/20 09:00 08/06/20 08:27 Finasteride 5 Mg Tablet PO 5 mg DAILY [facility] Administration Magnesium Hydroxide 30 ml 07/12/20 19:08 Milk Of Magnesia 30 Ml Oral.Susp PO DAILY PRN Constipation Multi-Ingred Cream/Lotion/Oil/Oint 1 appl 07/15/20 21:00 08/06/20 10:20 Mineral Oil/Petrolatum,White 106 Gm Tube TOPICAL 1 appl BID [facility] Administration Pharmacy Consult 1 each 07/07/20 17:02 Consult Rx Perform Med Rec MISCELLANE ONCE PRN Consult order Polyethylene Glycol 17 gm 07/16/20 16:50 08/06/20 08:28 Polyethylene Glycol 3350 17 Gm Powd.Pack PO 17 gm DAILY [facility] Administration Allergies Allergies Allergy/AdvReac Type Severity Reaction Status Date / Time aspirin [Aspirin] Allergy Severe SWELLING Verified 07/07/20 19:44 Assessment & Plan Assessment & Plan (1) Chronic schizophrenia with acute exacerbation: Status: Acute Code(s): F20.9 - Schizophrenia, unspecified Assessment and Plan: Continue plan of care discharge planning patient on close observation secondary to Simmons catheter no self-harming thoughts (2) UTI (urinary tract infection): Status: Acute Code(s): N39.0 - Urinary tract infection, site not specified (3) Urinary retention: Status: Acute Code(s): R33.9 - Retention of urine, unspecified Greater than 50% of the session was spent on counseling and/or coordination of care Reason for contiued inpatient stay Substantial Risk for: inability to function
[2020-08-06 22:15] VITALS: BP 129/65; PULSE 74; TEMP 36.6
[2020-08-06 22:17] VITALS: BP 129/65; PULSE 74
[2020-08-06] MEDS: cloZAPine 100 MG TABLET 150 MG PO (22:17)
[2020-08-06] MEDS: Doxazosin Mesylate 2 MG TABLET 4 MG PO (22:17)
[2020-08-07 06:25] VITALS: BP 146/72; PULSE 77; RESP 18; TEMP 35.9; O2SAT 96
[2020-08-07] MEDS: polyethylene glycoL 3350 17 GM POWD.PACK PO (09:21)
[2020-08-07 09:22] VITALS: BP 111/65; PULSE 76
[2020-08-07] MEDS: amLODIPine Besylate 5 MG TABLET PO (09:22)
[2020-08-07] MEDS: Finasteride 5 MG TABLET PO (09:22)
[2020-08-07] MEDS: cloZAPine 100 MG TABLET PO (09:23)
[2020-08-07] MEDS: Mineral Oil/Petrolatum,White 106 GM Tube 1 APPL TOPICAL ×2 (09:48→20:32)
[2020-08-07 11:26] VITALS: BMI 26.3
[2020-08-07 18:00] VITALS: BP 157/69; PULSE 79; TEMP 36.3
--- NOTE | 2020-08-07 18:05 | P.PNPSI_ITS ---
Subjective Subjective Date of Service: 08/07/20 Reason For Visit: acute psychosis Interim History: Pt reports hearing voices that are nice. He denies SI/HI. He reports feeling less fearful about voice becoming mean and threatening. He reports he is sleeping and eating well. He needs encouragement to get out of bed and walk. Review of Systems Review of Systems patient reporting no complaints Yes all other systems are reviewed and are negative Constitutional: Denies chills and Denies fever(s) Cardiovascular: Reports no additional cardiovascular complaints, Denies chest pain, Denies syncope and Denies dyspnea Respiratory: Denies chest congestion, Denies cough and Denies dyspnea Gastrointestinal: Denies abdominal pain and Denies heartburn Genitourinary: Reports as per HPI, Denies change in libido and Reports diff iculty urinating (retention) Denies syncope Psychiatric: Denies change in libido Endocrine: Denies change in libido Mental Status Exam Mental Status Exam Narrative: Patient Appearance:wearing hospital gown, fair hygiene, in NAD Patient Orientation: alert, oriented to date/place/month/year Patient Behavior: Appropriate and Cooperative Mood Description: Anxious Affect Description: Appropriate and Anxious Speech Pattern: Clear, some slight delayed response rate, otherwise regular rhythm, soft volume, spontaneous Hallucinations: Auditory, no CAH Delusions: Not Present Thought Process: linear Thought Content: AH, otherwise future oriented Judgement/insight: Poor x 2 SI: denies HI: denies No signs of aggression towards self or others Patient Appearance: Appropriate and Unkempt Patient Orientation: Person, Place and Situation Level of Consciousness: Awake Patient Behavior: Talkative and Cooperative Mood Description: Calm Affect Description: Calm, Appropriate and Anxious Ability to Follow Directions: Good Speech Pattern: Clear Diagnostics Vital Signs (24Hr): Vital Signs - 24 hr 08/06/20 22:15 08/06/20 22:17 08/07/20 06:25 Temperature 97.9 F 96.6 F L Pulse Rate 74 74 77 Respiratory Rate 18 Blood Pressure 129/65 129/65 146/72 H Pulse Oximetry 96 08/07/20 09:22 Temperature Pulse Rate 76 Respiratory Rate Blood Pressure 111/65 Pulse Oximetry Body Mass Index 26.3 Labs Results: 07/28/20 07:49 08/04/20 14:13 Imaging Radiology Impressions: ITS Impressions Chest X-Ray 07/07/20 13:48 IMPRESSION: Unremarkable chest examination. Head CT 07/07/20 13:48 IMPRESSION: Unremarkable exam. Retroperitoneum Ultrasound 07/16/20 20:10 IMPRESSION: 1. Urinary retention. The prevoid bladder volume was 482 and the patient was unable to void for postvoid residuals. 2. The bladder wall is markedly trabeculated with scattered diverticula. 3. Moderate hydronephrosis bilaterally. Trace right perinephric free fluid. Medications Medications Current Medications Generic Name Dose Route Start Last Admin Trade Name Freq PRN Reason Stop Dose Admin Acetaminophen 650 mg 07/12/20 19:08 07/29/20 12:41 Acetaminophen 325 Mg Tablet PO 650 mg Q6H PRN Administration Headache/Pain Mild Scale (1-3) Al Hydroxide/Mg Hydroxide 30 ml 07/12/20 19:08 07/13/20 22:11 Magnesium Hydrox/Alum Hydrox 30 Ml Oral.Susp PO 30 ml Q6H PRN Administration Heartburn/Nausea Amlodipine Besylate 5 mg 08/04/20 15:30 08/07/20 09:22 Amlodipine Besylate 5 Mg Tablet PO 5 mg DAILY [facility] Administration Protocol Clozapine 100 mg 07/31/20 09:00 08/07/20 09:23 Clozapine 100 Mg Tablet PO 100 mg DAILY [facility] Administration Clozapine 150 mg 08/06/20 21:00 08/06/20 22:17 Clozapine 100 Mg Tablet PO 150 mg BEDTIME [facility] Administration Doxazosin Mesylate 4 mg 07/18/20 21:00 08/06/20 22:17 Doxazosin Mesylate 2 Mg Tablet PO 4 mg BEDTIME [facility] Administration Protocol Finasteride 5 mg 07/19/20 09:00 08/07/20 09:22 Finasteride 5 Mg Tablet PO 5 mg DAILY [facility] Administration Magnesium Hydroxide 30 ml 07/12/20 19:08 Milk Of Magnesia 30 Ml Oral.Susp PO DAILY PRN Constipation Multi-Ingred Cream/Lotion/Oil/Oint 1 appl 07/15/20 21:00 08/07/20 09:48 Mineral Oil/Petrolatum,White 106 Gm Tube TOPICAL 1 appl BID [facility] Administration Pharmacy Consult 1 each 07/07/20 17:02 Consult Rx Perform Med Rec MISCELLANE ONCE PRN Consult order Polyethylene Glycol 17 gm 07/16/20 16:50 08/07/20 09:21 Polyethylene Glycol 3350 17 Gm Powd.Pack PO 17 gm DAILY [facility] Administration Allergies Allergies Allergy/AdvReac Type Severity Reaction Status Date / Time aspirin [Aspirin] Allergy Severe SWELLING Verified 07/07/20 19:44 Assessment & Plan Assessment & Plan (1) Chronic schizophrenia with acute exacerbation: Status: Acute Code(s): F20.9 - Schizophrenia, unspecified Assessment and Plan: Continue Simmons catheter per Urology continue Prolixin and clozapine more stable no SI Greater than 50% of the session was spent on counseling and/or coordination of care Reason for contiued inpatient stay Substantial Risk for: stable for discharge
[2020-08-07 20:30] VITALS: BP 133/66; PULSE 79
[2020-08-07] MEDS: cloZAPine 100 MG TABLET 150 MG PO (20:30)
[2020-08-07] MEDS: Doxazosin Mesylate 2 MG TABLET 4 MG PO (20:30)
[2020-08-08 06:00] VITALS: BP 126/69; PULSE 70; RESP 16; TEMP 36.4; O2SAT 94
[2020-08-08 08:19] LABS: Neut%MD 76.4 %; Neutrophils Absolute Auto 5.3 X10*3/uL (2.0-8.3); WBCANC 6.9 X10*3/uL
--- NOTE | 2020-08-08 08:27 | P.DS_ITS ---
DS: Providers Provider Date of Service: 08/08/20 Date of admission: 07/12/20 18:21 Date of discharge: 08/08/20 Primary care physician: Cyndy Meraz NP Consults: 07/17/20 10:12 Consult to Urology Routine Consulting Provider: Igor Quan Reason for consultation: urinary retention Has provider been notified: Yes 08/04/20 13:55 Consult to Hospitalist Routine Consulting Provider: Hospitalist Reason For Exam: HTN Attending physician on discharge: Jennifer Prince DS: Diagnosis Discharge Diagnosis (1) Chronic schizophrenia with acute exacerbation: Status: Acute DS: Medications Discharge Medications Home Medications: Previous Rx's Medication Instructions Recorded amlodipine 5 mg PO DAILY #30 tab 08/06/20 clozapine 100 mg PO DAILY #14 tab 08/06/20 clozapine 150 mg PO BEDTIME 14 Days #42 tab 08/06/20 doxazosin 4 mg PO BEDTIME #60 tab 08/06/20 finasteride [Proscar] 5 mg PO DAILY #30 tab 08/06/20 magnesium hydroxide [Milk of 30 ml PO DAILY PRN 30 Days #3000 ml 08/06/20 Magnesia] Discharge Plan Discharge Patient Disposition: Home, Self-Care Referrals: [place] [facility] [Other] (assistance will cummings catheter FAX- [phone]) Psych Prescriber: Chevy Solorzano ([facility]) [Other] - 09/01/20 11:00 am Igor Quan MD [Physician] - 08/12/20 10:45 am Cyndy Meraz NP [Primary Care Provider] - 08/11/20 1:10 pm (VIA PHONE) Discharge Medications: New amlodipine 5 mg Tablet 5 mg PO DAILY Qty: 30 RF: 0 doxazosin 2 mg Tablet 4 mg PO BEDTIME Qty: 60 RF: 0 clozapine 100 mg Tablet 100 mg PO DAILY Qty: 14 RF: 0 clozapine 50 mg tablet 150 mg PO BEDTIME 14 Days Qty: 42 RF: 0 magnesium hydroxide [Milk of Magnesia] 400 mg/5 mL Suspension 30 ml PO DAILY PRN (Reason: Constipation) 30 Days Qty: 3000 RF: 0 finasteride [Proscar] 5 mg Tablet 5 mg PO DAILY Qty: 30 RF: 0 Discontinued clozapine 100 mg tablet 3 tab PO BEDTIME RF: 0 Discharge Orders: Discharge Order (Routine); Ordered 08/08/20 Ordered By: Jennifer Prince Diet: regular diet Activity on Discharge: As tolerated Stand Alone Forms: Patient Portal Discharge page Care Plan Goals: 1. Follow up with referrals 2. Take medications as prescribed. Health Concerns: 1. Follow up with PCP and urologist Plan of Treatment: 1. Take medications as prescribed. Mental Status Exam Mental Status Exam Narrative: Patient Appearance:wearing hospital gown, fair hygiene, in NAD Patient Orientation: alert, oriented to date/place/month/year Patient Behavior: Appropriate and Cooperative Mood Description: Anxious Affect Description: Appropriate and Anxious Speech Pattern: Clear, some slight delayed response rate, otherwise regular rhythm, soft volume, spontaneous Hallucinations: Auditory, no CAH Delusions: Not Present Thought Process: linear Thought Content: AH, otherwise future oriented Judgement/insight: Poor x 2 SI: denies HI: denies No signs of aggression towards self or others Data Data Completed and Pending Completed studies during hospitalization [Text1]: 08/04/20 08/04/20 08/08/20 09:24 14:13 07:58 Absolute Neuts (auto) 4.0 5.3 Sodium 142 Potassium 4.5 Chloride 104 Carbon Dioxide 30 H Anion Gap 13 BUN 23 H Creatinine 1.32 Estim Creat Clear Calc 45.3 Estimated GFR 53 Fasting Glucose 103 H Calcium 8.9 D Total Bilirubin 0.6 AST 17 ALT 27 Alkaline Phosphatase 83 Total Protein 6.0 L Albumin 4.0 07/07/20 Unknown Urine clean catch - Clean Catch Midstream Urine Culture - Final Imaging Diagnostic Imaging Impressions Chest X-Ray 07/07/20 13:48 IMPRESSION: Unremarkable chest examination. Head CT 07/07/20 13:48 IMPRESSION: Unremarkable exam. Retroperitoneum Ultrasound 07/16/20 20:10 IMPRESSION: 1. Urinary retention. The prevoid bladder volume was 482 and the patient was unable to void for postvoid residuals. 2. The bladder wall is markedly trabeculated with scattered diverticula. 3. Moderate hydronephrosis bilaterally. Trace right perinephric free fluid. DS: Summary Hospital Course Hospital Course: Mr. Starkey is a 75 year-old male with long hx of schizophrenia paranoid type, stable on clozaril for several years. He apparently had stopped clozaril about one week prior to presenting to [facility]. In the ED, pt presented as confused, disoriented, unable to provide coherent account of recent events. He reported AH, and appeared very frighten by them. In the ED, pt was found to have UTI and was started on ceftin. On the unit he was noted to have profused episodes of incontinence and PVR showed urinary retention. Indwelling catheter was put in place for a week, then trial to void without catheter was tried but pt continued to retain urine after void more than 300cc. On the unit, Pt initially presented as anxious, reporting AH of male telling him that he was going to be tortured and killed. He denies SI/HI. He was restarted on clozaril, titrated slowly. 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 After discussing risks and benefits of continuing clozaril with patient and his daughter who is his HCP and guardian, benefits of continuing clozaril to his quality of life are much greater. In addition, even despite removal of all anticholinergic medication, pt most like will continues to have urinary retention. He was initially started as well on low dose prolixin as clozaril dose was titrated. Prolixin did help to ameliorate intensity of auditory hallucinations but pt experienced some degree of akathisia, which he describes as need to pace, suggestive sense of anxiety and need to tap lower extremities. As clozaril was titrated close to his previous outpatient dose of 100mg po daily and 150mg po qhs, prolixin was discontinued. Pt gradually reported that voice was not threatening, that he felt less anxious. For the most part, pt was in his room and required encouragement to walk around. He did not attend groups, minimal socialization with peers but was very pleasant when approached. There were no incidences of disruptive behaviors nor use of restraints. At time of discharge, pt appeared to be back to baseline in that he continued to hear a male voice but this voice was nice, not threatening and pt appeared much less hypervigilant and fearful. Status at Discharge Cognitive/behavioral status at discharge: Pt thought process is much more organized and coherent. He continues to report auditory hallucinations of male, but denies CAH. Pt at baseline experiences AH but it is not threatening. He denies SI/HI. He appears much calmer and less fearful. No signs of aggression towards self or others. Functional status at discharge: independent ambulation Overall status at discharge: patient is back to baseline Time Spent with Patient Time attestation: Total time spent providing and/or coordinating discharge services: Time spent: Greater than 30 minutes
[2020-08-08] MEDS: polyethylene glycoL 3350 17 GM POWD.PACK PO (09:01)
[2020-08-08 09:02] VITALS: BP 163/78; PULSE 70
[2020-08-08] MEDS: amLODIPine Besylate 5 MG TABLET PO (09:02)
[2020-08-08] MEDS: cloZAPine 100 MG TABLET PO (09:02)
[2020-08-08] MEDS: Finasteride 5 MG TABLET PO (09:06)
[2020-08-08] MEDS: Mineral Oil/Petrolatum,White 106 GM Tube 1 APPL TOPICAL (09:06)
== END 2020-08-08 11:14 | disposition home or self-care (01) | DRG 885 ==
LOC: HO.ED 07-08 20:41 → HO.PM5 07-12 18:27
PROVIDERS: Nurse Practitioner Family; Physician Assistant; Physician Assistant Medical; Psychiatry & Neurology Psychiatry; Admitting Provider Psychiatry & Neurology Psychiatry; Emergency Provider Emergency Medicine; PCP Nurse Practitioner Family; Visit Provider Social Worker
DX: F20.9 Schizophrenia, unspecified (principal); N39.0 Urinary tract infection, site not specified; R33.9 Retention of urine, unspecified; Z91.14 Patient's other noncompliance with medication regimen; Z20.822 Contact with and (suspected) exposure to COVID-19; Z79.899 Other long term (current) drug therapy
CPT/HCPCS: 36415; 70450; 71045; 76770; 80048; 80053; 80061; 80076; 80307; 81001; 81003; 82607; 82728; 82746; 83036; 83540; 83690; 83735; 84443; 84484; 85025; 85048; 87086; 87635; 93005; 96361; 96365; 97162; 99282; 99285; C1758; G0480; J0696

== ENCOUNTER → 2020-08-12 10:45 | Outpatient (BNVA) | payer MEDICARE, SELFPAY | PROVIDERS: PCP Nurse Practitioner Family; Visit Provider Urology | DX: Z13.89 Encounter for screening for other disorder (principal) | CPT/HCPCS: 99212 ==

== ENCOUNTER → 2020-08-26 15:32 | Outpatient (BNVA) | payer MEDICARE, SELFPAY | PROVIDERS: Visit Provider Urology | DX: R33.9 Retention of urine, unspecified (principal) | CPT/HCPCS: 51700; 99212 ==

== ENCOUNTER → 2020-09-11 15:07 | Outpatient (BNVA) | payer MEDICARE, SELFPAY | PROVIDERS: Visit Provider Urology | DX: N31.9 Neuromuscular dysfunction of bladder, unspecified (principal) | CPT/HCPCS: 51798; 99212 ==

== ENCOUNTER 2020-09-17 11:27 | Outpatient (REF) | payer MEDICARE, SELFPAY ==
[2020-09-17 11:49] LABS: MANUAL DIFF FLAG NO
[2020-09-17 11:59] LABS: Basophils Percent Auto 0.3 % (0-2); Hematocrit 35.1 % (42-52); Imm Gran Abs Auto 0.06 X10*3/uL (0.00-0.03); Imm Gran Pct Auto 0.9 % (0.0-0.4); Lymphocytes Absolute Auto 0.8 X10*3/uL (1.2-4.9); Lymphocytes Percent Auto 11.3 % (20-40); Mean Corpuscular HGB Conc 34.2 g/dl (31.0-36.0); Mean Corpuscular Volume 93.6 fL (80-98); Mean Platelet Volume 9.8 fL (9.4-12.4); Monocytes Absolute Auto 0.4 X10*3/uL (0.1-1.2); Monocytes Percent Auto 5.8 % (2-11); Neutrophils Absolute Auto 5.5 X10*3/uL (2.0-8.3); Neutrophils Percent Auto 81.7 % (45-73); Platelet Count 127 X10*3/uL (160-400); Red Blood Count 3.75 X10*6/uL (4.60-5.80); Red Cell Distribution Width 13.4 % (11.0-16.0); White Blood Count 6.8 X10*3/uL (4.8-10.8)
== END 2020-09-17 11:28 | disposition home or self-care (01) ==
LOC: HO.LABR 11:27
PROVIDERS: Visit Provider Clinical Nurse Specialist Psychiatric/Mental Health, Adult
DX: Z51.81 Encounter for therapeutic drug level monitoring (principal); Z79.899 Other long term (current) drug therapy
CPT/HCPCS: 36415; 85025